=== PATIENT | female | born 1955 | race Caucasian/White ===

== ENCOUNTER 2017-11-26 22:04 | Emergency (ER) | payer MEDICAID ==
[~2017-11-26] VITALS: Ht 162.6 cm; Wt 72.6 kg
[~2017-11-26 22:04] MED LIST: GLYB5TAB14 PO; LEVO0.0211 PO; LISI-424 PO; METF850T4 PO
[2017-11-26 22:10] VITALS: BP 162/90
--- NOTE | 2017-11-26 22:13 | NUR ---
TO BED # 1 AMB, REPORT GIVEN TO JAGJIT ROGERS.
--- NOTE | 2017-11-26 22:20 | NUR ---
Note undone in EDM - 11/26/17 at 2227 by ALEJANDRINA ASSUMED CARE OF PT AT THIS TIME. C/O RIGHT LOWER LEG PAIN S/P MECHANICAL FALL X 3 HOURS AGO. AAOX4 WITH EVEN AND STEADY GAIT; PATIENT STATES PAIN OF 7/10 AT THIS TIME; VSS; PATIENT POSITIONED FOR COMFORT; HOB ELEVATED; BEDRAILS UP X2; BED DOWN. ER MADE AWARE OF PT STATUS. WILL CONTINUE TO MONITOR.
--- NOTE | 2017-11-26 22:20 | NUR ---
ASSUMED CARE OF PT AT THIS TIME. C/O LEFT LOWER LEG PAIN S/P MECHANICAL FALL X 3 HOURS AGO. AAOX4 WITH EVEN AND STEADY GAIT; PATIENT STATES PAIN OF 7/10 AT THIS TIME; VSS; PATIENT POSITIONED FOR COMFORT; HOB ELEVATED; BEDRAILS UP X2; BED DOWN. ER MD MADE AWARE OF PT STATUS. WILL CONTINUE TO MONITOR.
--- NOTE | 2017-11-26 23:24 | NUR ---
Dr. Astudillo evaluating patient at bedside.
--- NOTE | 2017-11-26 23:24 | NUR ---
REPORT RECEIVED FROM SUE DANIELSON
[2017-11-26] MEDS ORDERED: IBUPROFEN 600 MG TAB PO ONE (23:35)
[2017-11-26] MEDS ORDERED: BACITRACIN OINT 500 UNITS/GM PKT TP ONE (23:35)
--- NOTE | 2017-11-26 23:50 | NUR ---
Patient discharged with v/s stable. Written and verbal after care instructions given and explained. Patient alert, oriented and verbalized understanding of instructions. Ambulatory with steady gait. All questions addressed prior to discharge. ID band removed. Patient advised to follow up with PMD. Rx of IBUPROFEN/BACITRACIN given. Patient educated on indication of medication including possible reaction and side effects. Opportunity to ask questions provided and answered.
[2017-11-27 00:02] VITALS: BP 119/86
== END 2017-11-26 23:50 | disposition home or self-care (01) ==
LOC: MED 22:04
DX: S83.92XA Sprain of unspecified site of left knee, initial encounter (principal); S93.402A Sprain of unspecified ligament of left ankle, initial encounter; S09.8XXA Other specified injuries of head, initial encounter; I10 Essential (primary) hypertension; E11.9 Type 2 diabetes mellitus without complications; E07.9 Disorder of thyroid, unspecified; W18.39XA Other fall on same level, initial encounter; Y93.89 Activity, other specified; Y99.8 Other external cause status; Y92.89 Other specified places as the place of occurrence of the external cause
CPT/HCPCS: 73562; 73610; 82948; 99284

== ENCOUNTER 2019-02-12 10:39 | Day surgery (SDC) | payer OTHER ==
[~2019-02-12] VITALS: Ht 160 cm; Wt 68.0 kg
[~2019-02-12 10:39] MED LIST changes: +METF-350 PO; -METF850T4 PO
[2019-02-12] MEDS ORDERED: LIDOCAINE 2% 100 MG/5 ML UJET TP ONE (13:08)
[2019-02-12] MEDS ORDERED: fentaNYL 0.05 MG/ML VIAL ONE (13:08)
[2019-02-12] MEDS ORDERED: fentaNYL 0.05 MG/ML VIAL IVP ONE (16:25)
== END 2019-02-12 14:20 | disposition home or self-care (01) ==
LOC: MDS 10:39 → MMU 10:39 → MDS 14:20
PROVIDERS: ATTEND Internal Medicine Gastroenterology
DX: Z12.11 Encounter for screening for malignant neoplasm of colon (principal); K57.30 Diverticulosis of large intestine without perforation or abscess without bleeding; K51.40 Inflammatory polyps of colon without complications; I10 Essential (primary) hypertension; E78.00 Pure hypercholesterolemia, unspecified; E11.9 Type 2 diabetes mellitus without complications; E66.3 Overweight; Z79.84 Long term (current) use of oral hypoglycemic drugs; Z79.899 Other long term (current) drug therapy
CPT/HCPCS: 45385; 88305; J3010

== ENCOUNTER 2019-08-07 13:42 | Emergency (ER) | payer OTHER ==
[~2019-08-07] VITALS: Ht 153.7 cm; Wt 70.3 kg
[2019-08-07 13:51] VITALS: BP 122/66
--- NOTE | 2019-08-07 14:00 | NUR ---
PT PRESENTS TO THE ER W/ ACUTE FEVER AND BURNING EPIGASTRIC PAIN 5/10 FOR 2 DAYS. DENIES UPPER RESPIRATORY SYMPTOMS. DENIES N/V. TRAVEL TO [place] 07/31/19-08/01/19, DENIES SICK CONTACTS THERE. SKIN IS PINK/WARM/DRY; AAOX4 WITH EVEN AND STEADY GAIT; LUNGS CLEAR BL; HR EVEN AND REGULAR; PT DENIES ANY CP, SOB, OR COUGH AT THIS TIME; PATIENT STATES PAIN OF 5/10 AT THIS TIME; VSS; PATIENT POSITIONED FOR COMFORT; HOB ELEVATED; BEDRAILS UP X5; BED DOWN. ER MD MADE AWARE OF PT STATUS.
[2019-08-07] MEDS ORDERED: ACETAMINOPHEN EXTRA STRENGTH 500 MG TAB PO ONE (14:05)
--- NOTE | 2019-08-07 14:05 | NUR ---
PT AMB TO BED 06
--- NOTE | 2019-08-07 14:07 | NUR ---
NOTIFIED DR BOBO OF PT'S C/O FEVER AND RECENT TRAVEL HX.
[2019-08-07] MEDS ORDERED: ALUMINUM HYD/MAG/SIMETHICONE 30 ML UDC PO ONE (14:15)
[2019-08-07] MEDS ORDERED: LIDOCAINE VISCOUS 2% 20 ML UDC PO ONE (14:15)
--- NOTE | 2019-08-07 14:22 | NUR ---
FLU SWAB COLLECTED AT BEDSIDE
--- NOTE | 2019-08-07 14:34 | NUR ---
XRAY AT BEDSIDE
[2019-08-07 14:40] LABS: BASOPHILS # (AUTO) 0.1 K/uL (0.00-0.22); BASOPHILS % (AUTO) 0.6 % (0.0-2.0); HEMATOCRIT 36.4 % (36-48); HEMOGLOBIN 12.1 g/dL (12.0-16.0); LYMPHOCYTES # (AUTO) 1.3 K/uL (2.5-16.5); LYMPHOCYTES % (AUTO) 9.4 % (20.5-51.1); MEAN CORPUSCULAR HEMOGLOBIN 30 pg (27-31); MEAN CORPUSCULAR HGB CONC 33 g/dL (33-37); MEAN CORPUSCULAR VOLUME 90.2 fL (80-94); MONOCYTES # (AUTO) 0.9 K/uL (0.8-1.0); MONOCYTES % (AUTO) 6.6 % (1.7-9.3); NEUTROPHILS # (AUTO) 11.6 K/uL (1.8-7.7); NEUTROPHILS % (AUTO) 83.4 % (42.2-75.2); PLATELET COUNT (AUTO) 150 K/uL (140-450); RED BLOOD CELL COUNT(AUTO) 4.04 MIL/uL (4.20-5.40); RED CELL DISTRIBUTION WIDTH 15.1 % (11.6-13.7); WHITE BLOOD COUNT (AUTO) 13.9 K/uL (4.8-10.8)
--- NOTE | 2019-08-07 14:50 | NUR ---
URINE SAMPLE COLLECTED
[2019-08-07 14:55] LABS: ALBUMIN 3.1 g/dL (3.4-5.0); CARBON DIOXIDE 23.6 mmol/L (21-32); POTASSIUM 3.6 mmol/L (3.5-5.1); TOTAL BILIRUBIN 3.2 mg/dL (0.0-1.0)
--- NOTE | 2019-08-07 15:47 | NUR ---
FLU A POSITIVE AND B NEGATIVE, REPORTED TO DR BOBO
[2019-08-07 16:54] LABS: APPEARANCE,URINE CLEAR (CLEAR); BILIRUBIN,URINE 1+ (NEGATIVE); BLOOD, URINE NEGATIVE (NEGATIVE); COLOR,URINE YELLOW (YELLOW); LEUKOCYTE ESTERASE ,URINE TRACE (NEGATIVE); NITRITE, URINE POSITIVE (NEGATIVE); UGLUCOSE NEGATIVE (NEGATIVE)
[2019-08-07 17:06] LABS: RBC,URINE 0-5 /HPF (0-5)
[2019-08-07 17:29] VITALS: BP 112/59
--- NOTE | 2019-08-07 17:29 | NUR ---
Patient discharged with v/s stable. Written and verbal after care instructions given and explained. Patient alert, oriented and verbalized understanding of instructions. Ambulatory with steady gait. All questions addressed prior to discharge. ID band removed. Patient advised to follow up with PMD. Rx of Macrobid and Tamiflu given. Patient educated on indication of medication including possible reaction and side effects. Opportunity to ask questions provided and answered.
== END 2019-08-07 17:29 | disposition home or self-care (01) ==
LOC: MED 13:42
DX: J10.1 Influenza due to other identified influenza virus with other respiratory manifestations (principal); N39.0 Urinary tract infection, site not specified; E11.9 Type 2 diabetes mellitus without complications; I10 Essential (primary) hypertension; E07.9 Disorder of thyroid, unspecified; Z79.84 Long term (current) use of oral hypoglycemic drugs; Z79.899 Other long term (current) drug therapy
CPT/HCPCS: 36415; 71045; 76705; 80053; 81001; 83690; 85025; 87086; 87804; 99285; Q0092

== ENCOUNTER 2021-04-14 10:38 | Emergency (ER) | payer OTHER ==
[~2021-04-14] VITALS: Ht 160 cm; Wt 65.8 kg
[~2021-04-14 10:38] MED LIST changes: -LISI-424 PO; +LISI5TAB PO
[2021-04-14 10:42] VITALS: BP 134/91
[2021-04-14] MEDS ORDERED: ACETAMINOPHEN 325 MG TAB PO ONE ×2 (11:00→11:15)
--- NOTE | 2021-04-14 11:34 | NUR ---
65 Y/O F, PATIENT PRESENTS TO ED WITH CHEST PAIN AND L ARM PAIN AFTER FALLING ON CHEST AND ARM 6 DAYS AGO. PT DENIES SYNCOPE, LOC OR HEAD/NECM INJURY. DENIES N/V/D; SKIN IS PINK/WARM/DRY; AAOX4 WITH EVEN AND STEADY GAIT; LUNGS CLEAR BL; HR EVEN AND REGULAR; PT DENIES ANY FEVER, CP, SOB, OR COUGH AT THIS TIME; PATIENT STATES PAIN OF 7/10 AT THIS TIME; VSS; PATIENT POSITIONED FOR COMFORT; HOB ELEVATED; BEDRAILS UP X2; BED DOWN. ER MD MADE AWARE OF PT STATUS. PT DENIES BLURRY VISION, DOUBLE VISION OR LIGHT HEADED. MECHANICAL FALL, BROKE FALL WITH CHEST AND ARM. PMH: HTN, DM2 NKA MED: DENIES
--- NOTE | 2021-04-14 13:26 | NUR ---
PT RESTING IN BED, VSS, WILL CONTINUE TO MONITOR.
[2021-04-14] MEDS ORDERED: NAPR-54 PO (13:47)
[2021-04-14] MEDS ORDERED: LID5T TP (13:47)
[2021-04-14 13:57] VITALS: BP 124/83
--- NOTE | 2021-04-14 13:58 | NUR ---
Patient discharged with v/s stable. Written and verbal after care instructions given RIB FRACTURE and explained. Patient alert, oriented and verbalized understanding of instructions. Ambulatory with steady gait. All questions addressed prior to discharge. ID band removed. Patient advised to follow up with PMD. Rx of LIDOCAINE, AND NAPROXEN given. Patient educated on indication of medication including possible reaction and side effects. Opportunity to ask questions provided and answered.
== END 2021-04-14 13:57 | disposition home or self-care (01) ==
LOC: MED 10:38
DX: S22.32XA Fracture of one rib, left side, initial encounter for closed fracture (principal); E11.9 Type 2 diabetes mellitus without complications; I10 Essential (primary) hypertension; E07.9 Disorder of thyroid, unspecified; Z79.84 Long term (current) use of oral hypoglycemic drugs; Z79.899 Other long term (current) drug therapy; W01.0XXA Fall on same level from slipping, tripping and stumbling without subsequent striking against object, initial encounter; Y93.89 Activity, other specified; Y92.89 Other specified places as the place of occurrence of the external cause; Y99.8 Other external cause status
CPT/HCPCS: 71101; 73030; 99284

== ENCOUNTER 2022-06-06 20:47 | Emergency (ER) | payer OTHER ==
[~2022-06-06] VITALS: Ht 154.9 cm; Wt 65.3 kg
[~2022-06-06 20:47] MED LIST changes: +LID5T TP; +NAPR-54 PO
[2022-06-06 21:04] VITALS: BP 126/66
--- NOTE | 2022-06-06 21:07 | NUR ---
TO LOBBY A/W BED AMBULATORY
[2022-06-07] MEDS ORDERED: OFLO5SOL27 OT (00:08)
[2022-06-07] MEDS ORDERED: IBUP-2213 PO (00:08)
[2022-06-07 00:22] VITALS: BP 138/74
--- NOTE | 2022-06-07 00:22 | NUR ---
Patient discharged with v/s stable. Written and verbal after care instructions given and explained. Patient verbalized understanding. Ambulatory with steady gait. All questions addressed prior to discharge. Advised to follow up with PMD.
[2022-06-08] MEDS ORDERED: CYCL-711 PO (22:57)
== END 2022-06-07 00:22 | disposition home or self-care (01) ==
LOC: MED 20:47
DX: H60.502 Unspecified acute noninfective otitis externa, left ear (principal); E11.9 Type 2 diabetes mellitus without complications; I10 Essential (primary) hypertension; E07.9 Disorder of thyroid, unspecified; Z79.84 Long term (current) use of oral hypoglycemic drugs; Z79.899 Other long term (current) drug therapy
CPT/HCPCS: 99281

== ENCOUNTER 2022-06-08 20:12 | Emergency (ER) | payer OTHER ==
[~2022-06-08] VITALS: Ht 157.5 cm; Wt 63.5 kg
[~2022-06-08 20:12] MED LIST changes: +IBUP-2213 PO; +OFLO5SOL27 OT
[2022-06-08 20:20] VITALS: BP 105/55
--- NOTE | 2022-06-08 20:23 | NUR ---
TO LOBBY A/W BED AMBULATORY
--- NOTE | 2022-06-08 20:48 | NUR ---
PT RETURN FROM RADIOLOGY TO ER LOBBY
[2022-06-08] MEDS ORDERED: CYCL-711 PO (22:57)
== END 2022-06-08 23:11 | disposition home or self-care (01) ==
LOC: MED 20:12
DX: M79.671 Pain in right foot (principal); M79.672 Pain in left foot; G89.29 Other chronic pain; E11.9 Type 2 diabetes mellitus without complications; I10 Essential (primary) hypertension; E07.9 Disorder of thyroid, unspecified; Z79.84 Long term (current) use of oral hypoglycemic drugs; Z79.899 Other long term (current) drug therapy
CPT/HCPCS: 73630; 99283

== ENCOUNTER 2022-06-16 12:20 | Inpatient (IN) | payer OTHER ==
[~2022-06-16] VITALS: Ht 162.6 cm; Wt 82.1 kg
[~2022-06-16 12:20] MED LIST changes: +CYCL-711 PO
--- NOTE | 2022-06-16 12:23 | NUR ---
PT W/C ASSISTED TO BED 9
[2022-06-16 12:27] VITALS: BP 130/76
--- NOTE | 2022-06-16 12:52 | NUR ---
pt taken to ct via [facility] with [facility] and sarah mcneal
--- NOTE | 2022-06-16 12:58 | NUR ---
pt returned from ct, pt oriented to name, place, event, denies any pain, nsr on cm, o2 sat 98% ra, sr up times 2 already examined by
[2022-06-16 13:13] LABS: BASOPHILS # (AUTO) 0.1 K/uL (0.00-0.22); BASOPHILS % (AUTO) 1.1 % (0.0-2.0); EOSINOPHILS # (AUTO) 0.1 K/uL (0-0.4); EOSINOPHILS % (AUTO) 1.8 % (0.0-4.0); HEMOGLOBIN 11.4 g/dL (12.0-16.0); LYMPHOCYTES # (AUTO) 1.2 K/uL (2.5-16.5); LYMPHOCYTES % (AUTO) 24.4 % (20.5-51.1); MEAN CORPUSCULAR HEMOGLOBIN 28 pg (27-31); MEAN CORPUSCULAR HGB CONC 33 g/dL (33-37); MEAN CORPUSCULAR VOLUME 83.9 fL (80-94); MONOCYTES # (AUTO) 0.5 K/uL (0.8-1.0); MONOCYTES % (AUTO) 9.9 % (1.7-9.3); NEUTROPHILS # (AUTO) 3.2 K/uL (1.8-7.7); NEUTROPHILS % (AUTO) 62.8 % (42.2-75.2); PLATELET COUNT (AUTO) 127 K/uL (140-450); RED BLOOD CELL COUNT(AUTO) 4.05 MIL/uL (4.20-5.40); WHITE BLOOD COUNT (AUTO) 5.1 K/uL (4.8-10.8)
[2022-06-16 13:28] LABS: PROTHROMBIN TIME 11.5 secs (10.8-13.4)
[2022-06-16 13:34] LABS: ALBUMIN 2.8 g/dL (3.4-5.0); ANION GAP 10.6 (8-16); ASPARTATE AMINOTRANSFERASE 61 U/L (15-37); CARBON DIOXIDE 26.4 mmol/L (21-32); CHLORIDE 107 mmol/L (98-107); CREATININE 0.8 mg/dL (0.6-1.3); GFR ARICAN-AMERICAN 93 mL/min (>90); GLUCOSE 151 mg/dL (74-106); SODIUM SERUM 140 mmol/L (136-145); TOTAL BILIRUBIN 1.4 mg/dL (0.0-1.0); UREA NITROGEN, BLOOD 17 mg/dL (7-18)
[2022-06-16] MEDS ORDERED: ACT30 PO (13:39)
[2022-06-16] MEDS ORDERED: ROSU10TA1 PO (13:39)
[2022-06-16] MEDS ORDERED: PROP20TA29 PO (13:39)
[2022-06-16] MEDS ORDERED: FAMO-92 PO (13:39)
[2022-06-16] MEDS ORDERED: LISI2.5T12 PO (13:41)
[2022-06-16 14:58] LABS: APPEARANCE,URINE CLEAR (CLEAR); BILIRUBIN,URINE NEGATIVE (NEGATIVE); BLOOD, URINE NEGATIVE (NEGATIVE); COLOR,URINE YELLOW (YELLOW); LEUKOCYTE ESTERASE ,URINE 1+ (NEGATIVE); NITRITE, URINE NEGATIVE (NEGATIVE); UGLUCOSE NEGATIVE (NEGATIVE)
[2022-06-16 15:26] LABS: RBC,URINE 0-5 /HPF (0-5)
[2022-06-16 15:27] LABS: TRICHOMONAS,URINE None Seen /HPF (None Seen); YEAST,URINE None Seen /HPF (None Seen)
--- NOTE | 2022-06-16 16:16 | NUR ---
PT ON TELE NEURO CONSULT
--- NOTE | 2022-06-16 17:49 | NUR ---
ok to eat per Dr Bell. pt requesting food
--- NOTE | 2022-06-16 19:07 | NUR ---
pt eating dinner at this time, no ac distress, nsr on cm, o2 sat 98% ra, sr up times 2
[2022-06-16] MEDS ORDERED: ONDANSETRON 4 MG/2 ML VIAL IVP PRN (19:10)
[2022-06-16] MEDS ORDERED: ACETAMINOPHEN 325 MG TAB PO PRN (19:10)
[2022-06-16] MEDS ORDERED: DEXTROSE 50% 50 ML SYR IVP PRN (19:15)
--- NOTE | 2022-06-16 19:21 | NUR ---
pt report to mold shifter nurse, Mia. no distress noted in pt
[2022-06-16] MEDS ORDERED: cefTRIAXone 1,000 MG VIAL ONE (19:49)
[2022-06-16] MEDS: NACL 0.9% 1,000 ML IV SCH ×2 (19:58→22:17)
--- NOTE | 2022-06-16 20:00 | NUR ---
RESTING COMFORTABLY IN NAD. WARM BLANKET GIVEN
[2022-06-16] MEDS: BLOOD GLUCOSE MONITORING 1 DEV DEV FS SCH (21:00)
[2022-06-16] MEDS: LACTULOSE 20 GM/30 ML UDC PO SCH (21:00)
--- NOTE | 2022-06-16 21:30 | NUR ---
TO ICU 6. BEDSIDE REPORT GIVEN TO SUE PETERSEN
[2022-06-16 22:36] VITALS: BP 128/62
[2022-06-16 23:02] VITALS: BP 128/62
[2022-06-16] MEDS: INSULIN LISPRO SLIDING SCALE 100 UNITS/ML VIAL SUBQ PRN (23:13)
[2022-06-17 04:00] VITALS: BP 129/72
[2022-06-17] MEDS: BLOOD GLUCOSE MONITORING 1 DEV DEV FS SCH ×4 (05:24→20:34)
[2022-06-17] MEDS: INSULIN LISPRO SLIDING SCALE 100 UNITS/ML VIAL SUBQ PRN ×4 (05:25→20:40)
[2022-06-17] MEDS ORDERED: metroNIDAZOLE 500 MG/NS PREMIX 0 ML IV ONE (05:25)
[2022-06-17] MEDS ORDERED: LEVOTHYROXINE 0.025 MG TAB ONE (05:26)
[2022-06-17] MEDS: LEVOTHYROXINE 0.025 MG TAB PO SCH (05:27)
[2022-06-17 05:50] LABS: BASOPHILS % (AUTO) 0.7 % (0.0-2.0); EOSINOPHILS # (AUTO) 0.1 K/uL (0-0.4); EOSINOPHILS % (AUTO) 0.7 % (0.0-4.0); HEMATOCRIT 31.6 % (36-48); HEMOGLOBIN 10.6 g/dL (12.0-16.0); LYMPHOCYTES # (AUTO) 1.6 K/uL (2.5-16.5); MEAN CORPUSCULAR HEMOGLOBIN 28 pg (27-31); MEAN CORPUSCULAR HGB CONC 34 g/dL (33-37); MEAN CORPUSCULAR VOLUME 83.9 fL (80-94); MONOCYTES # (AUTO) 0.9 K/uL (0.8-1.0); MONOCYTES % (AUTO) 12.6 % (1.7-9.3); NEUTROPHILS # (AUTO) 4.3 K/uL (1.8-7.7); PLATELET COUNT (AUTO) 116 K/uL (140-450); RED BLOOD CELL COUNT(AUTO) 3.77 MIL/uL (4.20-5.40); RED CELL DISTRIBUTION WIDTH 17.4 % (11.6-13.7); WHITE BLOOD COUNT (AUTO) 6.9 K/uL (4.8-10.8)
[2022-06-17 06:17] LABS: ALBUMIN 2.5 g/dL (3.4-5.0); ANION GAP 12.4 (8-16); CARBON DIOXIDE 24.2 mmol/L (21-32); CREATININE 0.8 mg/dL (0.6-1.3); MAGNESIUM 1.1 mg/dL (1.8-2.4); POTASSIUM 3.6 mmol/L (3.5-5.1); TOTAL BILIRUBIN 1.2 mg/dL (0.0-1.0)
[2022-06-17 06:21] VITALS: BP 129/71
--- NOTE | 2022-06-17 06:25 | NUR ---
PATIENT STABLE VITALS SIGNS IN NORMAL LIMITS ADMITED TO THE FLOOR ROOM 120 A TELEMETRY WE INFORMED HER JODIE HERNANDEZ TELE [phone] REPORT AND ENDORSED CARE TO ÁNGEL ROGERS
--- NOTE | 2022-06-17 08:00 | NUR ---
PATIENT ALERT AND VERBALLY RESPONSIVE. A&OX 2 ABLE TO MAKE NEEDS KNOWN. FORGETFUL. ADMITTED WITH DX:AMS. BREATHING EVEN AND NON LABORED. NO SOB/DYSPENA. NO S/S RESPIRATORY DISTRESS NOTED. CONTINUED ON SINUS RHYTHM. IVF NS @75ML/HR ORDERED. LAC IV SITE DRSG CLEAN DRY AND INTACT. RAC IV SITE DRSG CLEAN DRY AND INTACT. DENIES PAIN. CONTINUED ON IV ATB ORDERED. NO ADVERSE REACTIONS NOTED. F/C IN PLACE. F/C CARE PROVIDED. ASSISTED WITH ADL'S. PATIENT REQUIRES MODERATE ASSIST FOR TOILETING R/T LOWER EXT. GENERALIZED WEAKNESS. TURNED AND REPOSITIONED Q2H. SAFETY MEASURES OBSERVED. CALL LIGHT IN REACH. BED LOCKED IN LOWEST POSITION. CONTINUE PLAN OF CARE.
[2022-06-17] MEDS ORDERED: lisinopriL 20 MG TAB PO SCH (09:00)
[2022-06-17] MEDS ORDERED: lisinopriL 5 MG TAB PO SCH (09:00)
--- NOTE | 2022-06-17 09:56 | NUR ---
PATIENT HAS BEEN SCREENED AND CATEGORIZED MODERATE NUTRITION RISK. PATIENT WILL BE SEEN WITHIN 3-5 DAYS OF ADMISSION. REVIEWED BY PRISCILLA BERNABE RD
[2022-06-17] MEDS: ASPIRIN 81 MG TAB.CHEW PO SCH (10:28)
[2022-06-17] MEDS: LACTULOSE 20 GM/30 ML UDC PO SCH ×2 (10:28→20:33)
[2022-06-17 12:00] VITALS: BP 120/78
--- NOTE | 2022-06-17 12:11 | NUR ---
DR. ALEKSANDAR GAINES NOTIFIED REGARDING PATIENT'S LAB RESULTS. MADE AWARE MAG 1.1. MD NEW ORDER MAGNESIUM 4MG IVPB X1. ORDER NOTED AND CARRIED OUT PATIENT/ RESPONSIBLE CONSTITUTION PARTY MADE AWARE.
--- NOTE | 2022-06-17 12:13 | NUR ---
NO CHANGES IN PATIENT HR/ RHYTHM DUE TO MG 1.1. PATIENT CURRENTLY HAS NORMAL SINUS RHYTHM. PATIENT DENIES CP/PALPITATIONS. PULSES STRONG AND PALPABLE BILAT/PEDAL/RADIAL PULSES EQUAL STRONG.
[2022-06-17] MEDS ORDERED: MAG SULF 2000 MG/WATER PREMIX 100 ML IV SCH (13:00)
--- NOTE | 2022-06-17 14:47 | NUR ---
DC PLANNING SW ATTEMPTED TO MEET WITH PT AT BEDSIDE TO COMPLETE ASSESSMENT, HOWEVER, PT RECEIVED PHONE CALL AND REQUESTED SW TO RETURN AT A LATER TIME.
[2022-06-17 16:00] VITALS: BP 97/61
[2022-06-17 20:00] VITALS: BP 102/54
--- NOTE | 2022-06-17 20:33 | NUR ---
ADMINISTERED SCHEDULED DUE MEDICATIONS TOLERATED WELL. PATIENT AWAKE ALERT ORIENTED ON ROOM AIR WELL RESTED. NO SOB NOTED. DENIES PAIN. IVF NS AT 75 ML/HR INFUSING ON THE RAC. CALL LIGHT WITHIN REACH. SAFETY MEASURES IN PLACE. FAMILY MEMBER AT BEDSIDE.
[2022-06-17] MEDS: NACL 0.9% 1,000 ML IV SCH (21:50)
[2022-06-18] VITALS: BP 121/64
[2022-06-18 04:00] VITALS: BP 121/64
[2022-06-18] MEDS: LEVOTHYROXINE 0.025 MG TAB PO SCH (06:52)
[2022-06-18] MEDS: BLOOD GLUCOSE MONITORING 1 DEV DEV FS SCH ×4 (06:54→20:24)
[2022-06-18] MEDS: INSULIN LISPRO SLIDING SCALE 100 UNITS/ML VIAL SUBQ PRN ×3 (06:54→20:28)
--- NOTE | 2022-06-18 07:16 | NUR ---
ENDORSED PATIENT TO MORNING SHIFT NURSE HOPE FOR CONTINUITY OF CARE. PATIENT IN STABLE CONDITION.
--- NOTE | 2022-06-18 07:30 | NUR ---
RECEIVED REPORT FROM SUPERVISOR ENGRAVING NURSE FOR CONTINUITY OF CARE, POC DISCUSSED. PT IS ASLEEP IN BED ON RA WITH CHEST RISING AND FALLING EVEN AND UNLABORED. PT ON TELE MONITOR SHOWING SR. ALL SAFETY MEASURES IN PLACE, CALL LIGHT WITHIN REACH. WILL CONTINUE TO MONITOR.
[2022-06-18 08:00] VITALS: BP 99/58
[2022-06-18] MEDS: ASPIRIN 81 MG TAB.CHEW PO SCH (09:01)
[2022-06-18] MEDS: LACTULOSE 20 GM/30 ML UDC PO SCH ×2 (09:02→20:29)
--- NOTE | 2022-06-18 09:30 | NUR ---
ALEXANDRU MEDICATION ADMINISTERED PER MD ORDER, PT TOLERATED ADMINISTRATION. SWENSON NOTED JACE COLOR, 350 ML OUTPUT. PT DENIES PAIN. ALERT AND ORIENTED X4, REPORTS ALL NEEDS ARE BEING MET. NEW IV FLUIDS STARTED. ALL SAFETY MEASURES IN PLACE, CALL LIGHT WITHIN REACH. WILL CONTINUE TO MONITOR.
[2022-06-18] MEDS: NACL 0.9% 1,000 ML IV SCH (11:47)
--- NOTE | 2022-06-18 11:47 | NUR ---
MRI PAPERWORK COMPLETED.
[2022-06-18 12:00] VITALS: BP 110/69
--- NOTE | 2022-06-18 13:00 | NUR ---
DISCHARGE PLANNING PATIENT IS A 66-YEAR-OLD FEMALE ADMITTED TO [facility]/ED ON 06/16/2022. DUE TO ALTERED MENTAL STATUS. SW MET WITH PATIENT AT BEDSIDE TO DISCUSS AND GATHER PATIENT'S COLLATERAL INFORMATION. PATIENT REPORTED LIVING AT HOME WITH HER DAUGHTER DAVID BLANCAS IN [facility]. PATIENT STATED HAVING A GOOD FAMILY SUPPORT FROM HER FAMILY, HER ADULT SON DARLIN VAZQUEZ AND DAUGTHER DAVID BLANCAS WHO ARE HER EMERGENCY CONTACTS AND MEDICAL DESICION MAKERS. PATIENT DO NOT HAVE ADVANCE DIRECTIVES AND DECLINED ALL INF. FORMS PROVIDED BY SW AT THE TIME OF VISIT. PATIENT REPORTED THAT SHE HAS A GOOD RAPPORT WITH HER PCP DR. THOMAS ARREDONDO WHO SHE SAW LAST TIME ABOUT 3 WEEKS AGO. SW DISCUSS WITH PATIENT THE IMPORTANCE OF MAKING A FOLLOW UP APPOINTMENT WITH IN 5-7 DAYS AFTER DISCHARGE. PATIENT AGREED AND REPORTED THAT SHE WILL MAKE HER OWN APPOINTMENT WHEN SHE IS READY FOR DISCHARGED PATIENT DECLINED FOR SW TO MAKE HER FOLLOW UP APPOITNMENT. PATIENT STATED THAT SHE DO NOT HAVE ANY ISSUES WITH MEDICATIONS AND PICKS THEM UP IN THE [facility] IN [facility] IN [facility] IN [facility]. PATIENT REPORTED NOT HAVING ANY DME AT HOME. PATIENT REPORTED WANTING TO GO BACK HOME WHEN HE IS READY AND STABLE TO DISCHARGE WITH HER DAUGHTER'S ASSISTANCE WITH TRANSPORTATION BACK HOME. SW THANKED HER FOR THE INFORMATION AND ENDED THE VISIT. SW/CM WILL FOLLOW UP NEEDED.
--- NOTE | 2022-06-18 14:45 | NUR ---
[facility] AT BEDSIDE REPORTING THAT THEY ARE TAKING PATIENT TO [facility] TUNNEL WORKER CALLED, LISY STATED PT IS BEING PICKED UP AND HER APPOINTMENT IS AT 1600.
--- NOTE | 2022-06-18 14:57 | NUR ---
PT HAS BEEN PICKED UP BY THE [facility] IN STABLE CONDITION, IV AND SWENSON CATH IN PLACE. TELE MONITOR ON THE SIDE TABLE. PT WILL BE COMING BACK TO SAME ROOM 120A
--- NOTE | 2022-06-18 16:40 | NUR ---
SPEECH THERAPY NOTE: ATTEMPTED TO SEE PT. FOR SWALLOW EVALUATION, HOWEVER PT. IS AT [facility] FOR MRI. WILL FOLLOW UP. RN AWARE.
--- NOTE | 2022-06-18 17:01 | NUR ---
PTS SON, DARLIN UPDATED ON PTS STATUS AND GETTING MRI AT [facility] ON [address]. ALL QUESTIONS AND CONCERNS ADDRESSED.
--- NOTE | 2022-06-18 17:15 | NUR ---
PT HAS BEEN BROUGHT BACK BY [facility] IN STABLE CONDITION. VSS, 126/76, 86 HR, 98.5 TEMP, 19 RR. CONNECTED TO THE TELE MONITOR SHOWING SINUS RHYTHM. RECONNECTED TO THE IV FLUIDS. SWENSON IN PLACE AND DRAINING YELLOW URINE. ALL NEEDS CURRENTLY BEING MET. ALL SAFETY MEASURES IN PLACE, CALL LIGHT WITHIN REACH. WILL CONTINUE TO MONITOR.
--- NOTE | 2022-06-18 18:51 | NUR ---
ALL NEEDS HAVE BEEN MET, PT IS STABLE. POC WILL BE DISCUSSED AND ENDORSED TO MONEY MARKET DEALER NURSE.
--- NOTE | 2022-06-18 19:15 | NUR ---
RECEIVED PATIENT IN BED AWAKE ALERT ORIENTED ON ROOM AIR WELL RESTED. NO SOB. IVF NS INFUSING AT 75 ML/HR ON THE RAC. DENIES PAIN. SWENSON CATHETER DRAINING WELL. CALL LIGHT WITHIN REACH. SAFETY MEASURES IN PLACE.
[2022-06-18 20:00] VITALS: BP 119/69
--- NOTE | 2022-06-18 20:24 | NUR ---
CHECKED BLOOD SUGAR WAS 337, ADMINISTERED HUMALOG INSULIN ORDERED PER SLIDING SCALE.
--- NOTE | 2022-06-18 20:30 | NUR ---
SCHEDULED DUE MEDICATION GIVEN
[2022-06-19] VITALS: BP 132/89
[2022-06-19] MEDS: NACL 0.9% 1,000 ML IV SCH ×2 (00:30→13:50)
[2022-06-19 04:00] VITALS: BP 130/73
[2022-06-19] MEDS: LEVOTHYROXINE 0.025 MG TAB PO SCH (05:39)
[2022-06-19] MEDS: BLOOD GLUCOSE MONITORING 1 DEV DEV FS SCH ×2 (06:41→11:50)
[2022-06-19] MEDS: INSULIN LISPRO SLIDING SCALE 100 UNITS/ML VIAL SUBQ PRN ×2 (06:41→11:59)
--- NOTE | 2022-06-19 07:13 | NUR ---
BEDSIDE ENDORSEMENT GIVEN TO AM SHIFT NURSE NORM FOR CONTINUITY OF CARE. PATIENT STABLE.
[2022-06-19 08:00] VITALS: BP 132/89
[2022-06-19] MEDS: LACTULOSE 20 GM/30 ML UDC PO SCH (09:25)
[2022-06-19] MEDS: ASPIRIN 81 MG TAB.CHEW PO SCH (09:25)
[2022-06-19] MEDS ORDERED: LACT10SO11 PO (09:50)
[2022-06-19] MEDS ORDERED: CIPR500T4 PO (09:50)
[2022-06-19] MEDS ORDERED: ASPI81CT95 PO (09:50)
[2022-06-19 12:00] VITALS: BP 130/73
--- NOTE | 2022-06-19 12:00 | NUR ---
SCHEDULED MEDICATIONS DUE GIVEN. WILL CONTINUE TO MONITOR.
--- NOTE | 2022-06-19 15:00 | NUR ---
DISCHARGE INSTRUCTIONS PROVIDED TO PATIENT, ANSWERED ALL OF HER QUESTIONS. HAS FAMILY TO [employer] SUPERVISOR PATIENT AROUND 1600. SWENSON CATH REMOVED. WILL CONTINUE TO MONITOR.
--- NOTE | 2022-06-19 16:15 | NUR ---
IV SITES REMOVED WITH MINIMAL BLOOD AND LUMEN COMPLETELY INTACT. ESCORTED PATIENT DOWN TO LOBBY VIA WHEELCHAIR. PATIENT DISCHARGED TO HOME AT THIS TIME WITH FAMILY MEMBER.
--- NOTE | 2022-06-19 16:25 | NUR ---
PHYSICAL THERAPY CO-SIGN The Physical Therapy Progress Notes documented by Service Representative have been reviewed. Reviewed/Co-Signed by: Radha Painting PT Documentation Done by:RADHA PADILLA ACADEMIC AFFAIRS COORDINATOR Addendum: 06/19/22 at 1625 by Radha Painting PT Amended: Links added.
== END 2022-06-19 16:15 | disposition home or self-care (01) | DRG 463 ==
LOC: MED 12:20 → MTU 19:10 → MIC 20:42 → MTU 06-17 06:05
PROVIDERS: ADMIT Internal Medicine; ATTEND Internal Medicine
DX: N39.0 Urinary tract infection, site not specified (principal); G93.40 Encephalopathy, unspecified; E43 Unspecified severe protein-calorie malnutrition; D69.6 Thrombocytopenia, unspecified; E72.20 Disorder of urea cycle metabolism, unspecified; K74.60 Unspecified cirrhosis of liver; E11.9 Type 2 diabetes mellitus without complications; B96.20 Unspecified Escherichia coli [E. coli] as the cause of diseases classified elsewhere; Z68.31 Body mass index [BMI] 31.0-31.9, adult; D64.9 Anemia, unspecified; E80.6 Other disorders of bilirubin metabolism; E03.9 Hypothyroidism, unspecified; Z20.822 Contact with and (suspected) exposure to COVID-19; I10 Essential (primary) hypertension
CPT/HCPCS: 36415; 70450; 71045; 80053; 81001; 82140; 82948; 83036; 83605; 83735; 84484; 85025; 85610; 85730; 86886; 86900; 86901; 87040; 87081; 87086; 92526; 96365; 97116; 97530; 99291; J0696; J3475; J3490; J7060; Q0092; Q9967

== ENCOUNTER 2022-06-24 00:03 | Inpatient (IN) | payer OTHER ==
[~2022-06-24] VITALS: Ht 160 cm; Wt 78.5 kg
[~2022-06-24 00:03] MED LIST changes: +ACT30 PO; +ASPI81CT95 PO; +CIPR500T4 PO; +FAMO-92 PO; +LACT10SO11 PO; +LISI2.5T12 PO; +PROP20TA29 PO; +ROSU10TA1 PO
[2022-06-24 00:10] VITALS: BP 95/68
--- NOTE | 2022-06-24 00:12 | NUR ---
PT TAKEN TO BED 2
--- NOTE | 2022-06-24 00:16 | NUR ---
Patient being evaluated by physician at bedside.
[2022-06-24] MEDS ORDERED: PANTOPRAZOLE 40 MG INJ VIAL IVP ONE (00:20)
[2022-06-24 00:43] LABS: BASOPHILS # (AUTO) 0.1 K/uL (0.00-0.22); BASOPHILS % (AUTO) 1.2 % (0.0-2.0); EOSINOPHILS # (AUTO) 0.3 K/uL (0-0.4); EOSINOPHILS % (AUTO) 4.4 % (0.0-4.0); HEMATOCRIT 27.7 % (36-48); HEMOGLOBIN 9.3 g/dL (12.0-16.0); LYMPHOCYTES # (AUTO) 2.5 K/uL (2.5-16.5); LYMPHOCYTES % (AUTO) 37.7 % (20.5-51.1); MEAN CORPUSCULAR HEMOGLOBIN 28 pg (27-31); MEAN CORPUSCULAR HGB CONC 34 g/dL (33-37); MEAN CORPUSCULAR VOLUME 84.2 fL (80-94); MONOCYTES # (AUTO) 0.9 K/uL (0.8-1.0); MONOCYTES % (AUTO) 13.1 % (1.7-9.3); NEUTROPHILS # (AUTO) 2.9 K/uL (1.8-7.7); NEUTROPHILS % (AUTO) 43.6 % (42.2-75.2); PLATELET COUNT (AUTO) 132 K/uL (140-450); RED BLOOD CELL COUNT(AUTO) 3.28 MIL/uL (4.20-5.40); WHITE BLOOD COUNT (AUTO) 6.6 K/uL (4.8-10.8)
--- NOTE | 2022-06-24 01:05 | NUR ---
PATIENT ALERT ORIENTED NOT COMPLAINING OF PAIN CAME TO ED TODAY FOR VOMITING BLOOD PATIENT HAVE HX OF CIRROSIS AND GERD ALSO DIABETES AND HTN PATIENT IS NOW STABLE SR 68 ON MONITOR
[2022-06-24 01:48] LABS: POTASSIUM 3.4 mmol/L (3.5-5.1)
[2022-06-24 01:49] LABS: ANION GAP 12.5 (8-16); CARBON DIOXIDE 23.9 mmol/L (21-32); CREATININE 0.9 mg/dL (0.6-1.3)
--- NOTE | 2022-06-24 02:48 | NUR ---
PT AMBULATED TO WITH SON FOR URINE COLLECTION.
--- NOTE | 2022-06-24 05:00 | NUR ---
PATIENT STABLE ALERT ORIENTED TIMES 4 VITALS SIGNS IN NORMAL LIMITS NOT COMPLAINING OF PAIN AT THIS TIME NOT NAUSEAS NOT VOMITING
--- NOTE | 2022-06-24 05:06 | NUR ---
LATIC ACID 3.8 DOCTOR WAS INFORMED
[2022-06-24] MEDS ORDERED: cefTRIAXone 1,000 MG VIAL ONE (06:23)
[2022-06-24] MEDS ORDERED: KCL 20 MEQ/WATER INJ PREMIX 200 ML IV PRN (06:25)
[2022-06-24] MEDS ORDERED: HYDROcodone/APAP 5/325 MG 1 TAB TAB PO PRN (06:25)
[2022-06-24] MEDS ORDERED: ONDANSETRON 4 MG/2 ML VIAL IVP PRN (06:25)
[2022-06-24] MEDS ORDERED: ACETAMINOPHEN 325 MG TAB PO PRN (06:25)
[2022-06-24] MEDS ORDERED: MORPHINE SULFATE 4 MG/ML SYR IVP PRN (06:25)
[2022-06-24] MEDS ORDERED: POTASSIUM CHLORIDE 10 MEQ TABER PO PRN (06:25)
[2022-06-24] MEDS ORDERED: NACL 0.9% 1,000 ML IV ONE (06:25)
[2022-06-24] MEDS ORDERED: LORazepam 1 MG TAB PO PRN (06:25)
[2022-06-24] MEDS ORDERED: ALBUMIN HUMAN 25% 100 ML IV ONE (06:35)
--- NOTE | 2022-06-24 06:53 | NUR ---
PATIENT BLOOD PRESUEE START COMING DOWN SO I CALL THE DOCTOR AND HE GAVE ME A BOLUS 1000 ML
[2022-06-24] MEDS: NACL 0.9% 1,000 ML IV SCH ×2 (06:56→18:55)
--- NOTE | 2022-06-24 07:20 | NUR ---
REPORT RECEIVED FROM GONZALEZ RN, RECEIVED PT WITH R WRIST IV OUT, 4X4 PLACED, TRANSFERRED IV FLUIDS AND ALBUMIN TO [address]
--- NOTE | 2022-06-24 07:30 | NUR ---
Patient will be admitted to care of LIANA GUZMAN. Admitted to TELEMETRY. Will go to room. Belongings list completed.
--- NOTE | 2022-06-24 07:34 | NUR ---
REPORT GIVEN TO LAVERN ROGERS, TRANSFER OF CARE AT THIS TIME
--- NOTE | 2022-06-24 07:50 | NUR ---
RECEIVED REPORT FROM ER NURSE LAVERN FOR CONTINUITY OF CARE. PT STABLE IN TRANSPORT AND COMPLAINS OF NO PAIN AT THIS TIME. PT IS ADMITTED FOR GI BLEED THAT IS ACTIVE WITH BRIGHT RED BLOOD. A&OX4, SKIN INTACT, ON 2L NC, SKIN INTACT EXCEPT SOME DRYNESS, AND PT AMBULATES WITH ASSIST. PT HAS A 20G IN L HAND THAT IS INFUSING NS @80ML/HR. ALL SAFETY MEASURE ARE IN PLACE INCLUDING LOW BED POSITION AND CALL LIGHT WITHIN REACH. WILL CONTINUE TO MONITOR PT.
[2022-06-24 08:00] VITALS: BP 117/59
[2022-06-24] MEDS: DOCUSATE SODIUM 100 MG GELCAP PO SCH (09:00)
[2022-06-24] MEDS: PANTOPRAZOLE 40 MG INJ VIAL IVP SCH ×2 (09:33→21:11)
--- NOTE | 2022-06-24 10:47 | NUR ---
PATIENT HAS BEEN SCREENED AND CATEGORIZED MODERATE NUTRITION RISK. PATIENT WILL BE SEEN WITHIN 3-5 DAYS OF ADMISSION. REVIEWED BY PRISCILLA BERNABE RD
--- NOTE | 2022-06-24 11:13 | NUR ---
INFORMED DR THAT PT HAS HAD THREE BM SINCE 0750 THIS MORNING WITH RED BLOOD AND CLOTS IN IT.
[2022-06-24] MEDS ORDERED: DEXTROSE 50% 50 ML SYR IVP PRN (11:25)
[2022-06-24 11:48] LABS: BASOPHILS % (AUTO) 0.7 % (0.0-2.0); EOSINOPHILS # (AUTO) 0.1 K/uL (0-0.4); EOSINOPHILS % (AUTO) 1.5 % (0.0-4.0); HEMATOCRIT 22.6 % (36-48); HEMOGLOBIN 7.5 g/dL (12.0-16.0); LYMPHOCYTES # (AUTO) 1.3 K/uL (2.5-16.5); LYMPHOCYTES % (AUTO) 27.7 % (20.5-51.1); MEAN CORPUSCULAR HEMOGLOBIN 28 pg (27-31); MEAN CORPUSCULAR HGB CONC 33 g/dL (33-37); MEAN CORPUSCULAR VOLUME 85.1 fL (80-94); MONOCYTES # (AUTO) 0.7 K/uL (0.8-1.0); MONOCYTES % (AUTO) 13.9 % (1.7-9.3); NEUTROPHILS # (AUTO) 2.7 K/uL (1.8-7.7); NEUTROPHILS % (AUTO) 56.2 % (42.2-75.2); PLATELET COUNT (AUTO) 118 K/uL (140-450); RED BLOOD CELL COUNT(AUTO) 2.66 MIL/uL (4.20-5.40); RED CELL DISTRIBUTION WIDTH 16.6 % (11.6-13.7); WHITE BLOOD COUNT (AUTO) 4.8 K/uL (4.8-10.8)
[2022-06-24 12:00] VITALS: BP 123/60
[2022-06-24] MEDS: BLOOD GLUCOSE MONITORING 1 DEV DEV FS SCH ×3 (12:29→21:24)
[2022-06-24] MEDS: INSULIN LISPRO SLIDING SCALE 100 UNITS/ML VIAL SUBQ PRN (12:29)
[2022-06-24] MEDS: OCTREOTIDE ACETATE 1.25 MG in NACL 0.9% 250 ML IV SCH (14:30)
[2022-06-24 16:00] VITALS: BP 92/48
--- NOTE | 2022-06-24 19:10 | NUR ---
RECEIVED PT ON BED AWAKE, ALERT AND VERBALLY RESPONSIVE IN BULGARIAN. PT IS WITH CHIEF COMPLAINTS OF ABDOMINAL PAIN. PT DENIES OF PAIN AT THIS TIME. PT IS NPO AT THIS TIME FOR EGD PLANNING TOMORROW. EXPLAIN AND EDUCATE PT. PT UNDERSTOOD.
--- NOTE | 2022-06-24 19:10 | NUR ---
ENDORSED P TO WAFFLE MACHINE OPERATOR NURSE COSMO FOR CONTINUITY OF CARE. PT STABLE AT THIS TIME.
[2022-06-24 20:00] VITALS: BP 92/48
--- NOTE | 2022-06-24 21:24 | NUR ---
BLOOD SUGAR CHECKED = 91, NO SLIDING SCALE COVERAGE, NO INSULIN NEEDED.
--- NOTE | 2022-06-24 22:30 | NUR ---
PT WENT TO USE RESTROOM, PER NURSING HOME AIDE, NOTED OLD BLOOD PRESENT ON THE TOILET BOWL ON SMALL TO MODERATE AMOUNT.
[2022-06-25] VITALS: BP 94/44
[2022-06-25 04:00] VITALS: BP 96/50
[2022-06-25] MEDS: LEVOTHYROXINE 0.025 MG TAB PO SCH (06:41)
--- NOTE | 2022-06-25 06:41 | NUR ---
PT TOOK HER MORNING PILL SYNTHROID FOR THYROID WITH LITTLE WATER.
[2022-06-25] MEDS: BLOOD GLUCOSE MONITORING 1 DEV DEV FS SCH ×4 (07:00→20:48)
--- NOTE | 2022-06-25 07:00 | NUR ---
BLOOD SUGAR CHECK = 80, NO SLIDING SCALE COVERAGE, NO INSULIN NEEDED.
--- NOTE | 2022-06-25 07:15 | NUR ---
RECEIVED REPORT FROM NIGHT NURSE COSMO ROGERS FOR CONTINUITY OF CARE. INITIAL ASSESSMENT DONE. IVF INFUSING WELL. CALL LIGHT KEPT WITHIN REACH. WILL CONTINUE TO MONITOR.
[2022-06-25] MEDS: NACL 0.9% 1,000 ML IV SCH ×2 (07:25→19:55)
--- NOTE | 2022-06-25 07:30 | NUR ---
PT IS ON STABLE CONDITION, ALL SAFETY MEASURES ARE IN PLACE. ENDORSED TO DAY SHIFT NURSE JAISON FOR CONTINUITY OF CARE.
[2022-06-25 07:34] LABS: BASOPHILS % (AUTO) 0.9 % (0.0-2.0); EOSINOPHILS # (AUTO) 0.2 K/uL (0-0.4); EOSINOPHILS % (AUTO) 5.4 % (0.0-4.0); HEMATOCRIT 21.4 % (36-48); LYMPHOCYTES # (AUTO) 1.5 K/uL (2.5-16.5); LYMPHOCYTES % (AUTO) 35.4 % (20.5-51.1); MEAN CORPUSCULAR HEMOGLOBIN 28 pg (27-31); MEAN CORPUSCULAR HGB CONC 33 g/dL (33-37); MONOCYTES # (AUTO) 0.5 K/uL (0.8-1.0); NEUTROPHILS % (AUTO) 46.3 % (42.2-75.2); PLATELET COUNT (AUTO) 109 K/uL (140-450); RED BLOOD CELL COUNT(AUTO) 2.48 MIL/uL (4.20-5.40); RED CELL DISTRIBUTION WIDTH 17.4 % (11.6-13.7); WHITE BLOOD COUNT (AUTO) 4.3 K/uL (4.8-10.8)
[2022-06-25 07:36] LABS: CREATININE 0.8 mg/dL (0.6-1.3)
[2022-06-25 08:00] VITALS: BP 93/61
--- NOTE | 2022-06-25 08:00 | NUR ---
Patient's Plan of Care was discussed and reviewed with MAYITO: SERJIO
[2022-06-25] MEDS: PANTOPRAZOLE 40 MG INJ VIAL IVP SCH ×2 (09:00→20:32)
[2022-06-25] MEDS ORDERED: PROPRANOLOL 20 MG TAB PO SCH (09:00)
--- NOTE | 2022-06-25 09:05 | NUR ---
RECEIVED CALL FROM LAB SPOKE TO DAMARIS SILVA HGB 7. DR. CUNNINGHAM NOTIFIED WITH NEW ORDER. BLOOD TRANSFUSION 1 UNIT. RESIDENT DAQUAN HURST. ORDER NOTED AND CARRIED OUT.
[2022-06-25] MEDS: DOCUSATE SODIUM 100 MG GELCAP PO SCH (09:19)
--- NOTE | 2022-06-25 09:19 | NUR ---
SCHEDULED MEDICATIONS ADMINISTERED. TOLERATING WELL. INDERAL ON HOLD, BP 93/61.
--- NOTE | 2022-06-25 10:20 | NUR ---
PT SEEN BY DR. UCNNINGHAM.
[2022-06-25 12:00] VITALS: BP 101/58
--- NOTE | 2022-06-25 12:00 | NUR ---
DISCHARGE PLANNING PATIENT IS A 66 YEAR OLD FEMALE ADMITTED TO THE [facility]/ER ON 06/24/2022 DUE TO GI BLEED. ATTEMPTED TO GATHER COLLATERAL INFORMATION FROM PATIENT HOWEVER; SHE WAS NOT ALERT AND ABLE TO PROVIDE IT HOWEVER; HER SON AT BEDSIDE DID PROVIDE MUCH INFORMATION ABOUT PATIENT HE WAS ABLE TO. PER PATIENT'S SON HE FIRST WAS ABLE TO PROCESS HIS ANGER ABOUT PATIENT'S LAST ADMISSION ON 06/20/2022 AND HER DISCHARGE ON 06/23/2022. PER PATIENT'S SON SHE WORSEN AT HOME AND SHE IS BACK TODAY DUE TO VOMITING BLOOD. PER PATIENT'S SON PATIENT LIVES AT HOME WITH HER DAUGTHER DAVID IN THEIR HOME IN [facility] [place] [facility]. PER SON PATIENT HAS NO A.D. AND DECLINED ALL INF. FORMS PROVIDED BY ERNESTINA. PER SON PATIENT HAS HIS EMERGENCY CONTACTS STEVEN VAZQUEZ AND VENTURA BLANCAS . WHO ARE ALSO ARE PATIENT'S MEDICAL DECISION MAKERS. PER PATIENT'S SON PATIENT HAS GOOD FAMILY SUPPORT AND HAS BEEN INDEPENDENT ALL HER LIFE UNTIL RECENTLY WHEN SHE GOT SICK. PER SON PATIENT HAS A PCP DR. CURRAN AND HE IS UNAWARE OF WHEN IS THE LAST TIME PATIENT HAD AN APPOINTMENT WITH HER PCP; ERNESTINA DISCUSSED WITH PATIENT'S SON ABOUT THE IMPORTANCE OF HAVING PATIENT FOLLOW UP WITH HER APPOINTMENT WITHIN 5-7 DAYS AFTER DISCHARGE BUT PATIENT'S SON DECLINED THE APPOINTMENT AND STATED THAT THEY WILL MAKE HER APPOINTMENT AFTER PATIENT DISCHARGES. PATIENT HAS NO DME AT HOME AND SHE HAS NO ISSUES GETTING OR TAKING HER MEDICATIONS THAT SHE IS GETTING FROM [facility] IN [facility]. PER PATIENT'S SON PATIENT WILL BE DISCHARGE BACK HOME AND WILL BE ASSISTED WITH TRANSPORTATION BY HER SON OR DAUGTHER. SW THANKED PATIENT'S FOR THE INFORMATION AND ENDED THE MEETING. ERNESTINA/EMILIA WILL FOLLOW UP NEED IT.
[2022-06-25] MEDS ORDERED: diphenhydrAMINE 50 MG/ML VIAL ONE (13:43)
[2022-06-25] MEDS ORDERED: MIDAZOLAM 2 MG/2 ML VIAL ONE (13:44)
[2022-06-25] MEDS ORDERED: fentaNYL citrate 0.05 MG/ML VIAL ONE (13:44)
--- NOTE | 2022-06-25 14:00 | NUR ---
PT DAMON BY TEQUILA FROM OR FOR EGD.
[2022-06-25] MEDS: OCTREOTIDE ACETATE 1.25 MG in NACL 0.9% 250 ML IV SCH (14:30)
[2022-06-25] MEDS: MIDAZOLAM 2 MG/2 ML VIAL IVP SCH ×2 (14:49→15:15)
[2022-06-25] MEDS: fentaNYL citrate 0.05 MG/ML VIAL IVP SCH ×2 (14:50→15:15)
[2022-06-25] MEDS: PROPRANOLOL 20 MG TAB PO SCH ×2 (15:10→17:15)
--- NOTE | 2022-06-25 15:25 | NUR ---
PT RETURN FROM OR. ASSESSMENT DONE. NO C/O PAIN AT THIS TIME. REMAINS STABLE.
[2022-06-25 16:00] VITALS: BP 130/66
[2022-06-25 16:14] LABS: PROTHROMBIN TIME 11.9 secs (10.8-13.4)
--- NOTE | 2022-06-25 16:22 | NUR ---
BLOOD TRANSFUSION STARTED 1 UNIT.
[2022-06-25] MEDS: LACTULOSE 20 GM/30 ML UDC PO SCH (17:00)
--- NOTE | 2022-06-25 17:08 | NUR ---
BS CHECK 142. NO COVERAGE NEEDED.
[2022-06-25] MEDS: METOCLOPRAMIDE 10 MG/2 ML INJ VIAL IVP SCH (17:19)
--- NOTE | 2022-06-25 18:41 | NUR ---
RECHECKED PT. EATING DINNER. BLOOD TRANSFUSION STILL INFUSING. REMAINS STABLE.
--- NOTE | 2022-06-25 19:15 | NUR ---
BEDSIDE REPORT GIVEN TO NIGHT NURSE ALVIN FOR CONTINUITY OF CARE. BLOOD TRANSFUSION STILL INFUSING. REMAINS STABLE. CALL LIGHT KEPT WITHIN REACH.
--- NOTE | 2022-06-25 19:16 | NUR ---
RECEIVED REPORT FROM MORNING SHIFT NURSE. PT IS AOX4, AMBULATORY, EMIRATI SPEAKING WITH RELATIVE ON BEDSIDE, ABLE TO FOLLOW COMMAND AND ABLE TO VERBALIZE PAIN. PT IS ON 2L NASAL CANNULA WITH CLEAR LIQUID DIET. PT HAS IV ON LEFT HAND GAUGE 20 RUNNING WITH BLOOD AT 120 ML/HR. PT SKIN IS INTACT. PT DENIES PAIN AND NO S/S OF RESPIRATORY DISTRESS NOTED. ALL SAFETY MEASURES IMPLEMENTED. BED IN LOW POSITION, BED WHEELS ON LOCK AND CALL LIGHT WITHIN REACH.
[2022-06-25 20:00] VITALS: BP 129/65
--- NOTE | 2022-06-25 20:30 | NUR ---
BLOOD TRANSFUSION WAS DONE WITH THE VS-BP- 140/72, T-98.2, RR-18 SATING AT 98%.
--- NOTE | 2022-06-25 20:30 | NUR ---
BLOOD TRANSFUSION WAS DONE WITH THE VS-BPP- Addendum: 06/26/22 at 0108 by Lindsey Chris RN INCOMPLETE DATA
--- NOTE | 2022-06-25 20:32 | NUR ---
SCHEDULED AND PRESCRIBED MEDICATION WAS GIVEN TO PT PER MD ORDER. ALL SAFETY MEASURES IMPLEMENTED. BED IN LOW POSITION, BED WHEELS ON LOCK AND CALL LIGHT WITHIN REACH.
[2022-06-25] MEDS: INSULIN LISPRO SLIDING SCALE 100 UNITS/ML VIAL SUBQ PRN (20:50)
--- NOTE | 2022-06-25 20:50 | NUR ---
PT'S BLOOD GLUCOSE IS 284. HUMALOG INSULIN 6 UNITS WAS GIVEN TO PT.
[2022-06-25] MEDS: MAG SULF 2000 MG/WATER PREMIX 50 ML IV PRN (21:40)
--- NOTE | 2022-06-25 21:40 | NUR ---
MAGNESIUM SULFATE 2000MG THRU IVPB AT 25ML/HR DUE TO MAGNESIUM OF 1.4
[2022-06-25 22:20] LABS: HEMATOCRIT 25.1 % (36-48); HEMOGLOBIN 8.3 g/dL (12.0-16.0)
[2022-06-26] VITALS: BP 112/66
--- NOTE | 2022-06-26 | NUR ---
ASSISTED PT TO BATHROOM, PT WAS GIVEN DISPOSABLE UNDERWEAR WITH SANITARY [place]. ALL SAFETY MEASURES IMPLEMENTED. BED IN LOW POSITION, BED WHEELS ON LOCK AND CALL LIGHT WITHIN REACH.
[2022-06-26] MEDS: OCTREOTIDE ACETATE 1.25 MG in NACL 0.9% 250 ML IV SCH ×2 (03:30→17:39)
[2022-06-26 04:00] VITALS: BP 102/61
[2022-06-26] MEDS: LEVOTHYROXINE 0.025 MG TAB PO SCH (05:34)
[2022-06-26] MEDS: BLOOD GLUCOSE MONITORING 1 DEV DEV FS SCH ×4 (06:31→20:20)
--- NOTE | 2022-06-26 06:31 | NUR ---
PT BLOOD GLUCOSE IS 141. NO INSULIN COVERAGE NEEDED.
[2022-06-26 07:23] LABS: CARBON DIOXIDE 25.9 mmol/L (21-32); CREATININE 0.7 mg/dL (0.6-1.3); POTASSIUM 3.9 mmol/L (3.5-5.1)
[2022-06-26 07:31] LABS: BASOPHILS # (AUTO) 0.1 K/uL (0.00-0.22); BASOPHILS % (AUTO) 1.3 % (0.0-2.0); EOSINOPHILS # (AUTO) 0.3 K/uL (0-0.4); EOSINOPHILS % (AUTO) 4.7 % (0.0-4.0); HEMATOCRIT 24.8 % (36-48); HEMOGLOBIN 8.3 g/dL (12.0-16.0); LYMPHOCYTES # (AUTO) 1.7 K/uL (2.5-16.5); LYMPHOCYTES % (AUTO) 27.1 % (20.5-51.1); MEAN CORPUSCULAR HEMOGLOBIN 29 pg (27-31); MEAN CORPUSCULAR HGB CONC 33 g/dL (33-37); MEAN CORPUSCULAR VOLUME 86.5 fL (80-94); MONOCYTES # (AUTO) 0.9 K/uL (0.8-1.0); MONOCYTES % (AUTO) 14.8 % (1.7-9.3); NEUTROPHILS # (AUTO) 3.2 K/uL (1.8-7.7); NEUTROPHILS % (AUTO) 52.1 % (42.2-75.2); PLATELET COUNT (AUTO) 124 K/uL (140-450); RED BLOOD CELL COUNT(AUTO) 2.86 MIL/uL (4.20-5.40); RED CELL DISTRIBUTION WIDTH 16.4 % (11.6-13.7); WHITE BLOOD COUNT (AUTO) 6.2 K/uL (4.8-10.8)
[2022-06-26 08:00] VITALS: BP 128/72
[2022-06-26] MEDS: LACTULOSE 20 GM/30 ML UDC PO SCH ×3 (09:12→17:36)
[2022-06-26] MEDS: PANTOPRAZOLE 40 MG INJ VIAL IVP SCH ×2 (09:18→20:12)
[2022-06-26] MEDS: PROPRANOLOL 20 MG TAB PO SCH ×3 (09:22→17:00)
[2022-06-26] MEDS: METOCLOPRAMIDE 10 MG/2 ML INJ VIAL IVP SCH ×3 (09:23→17:36)
[2022-06-26] MEDS: NACL 0.9% 1,000 ML IV SCH (09:24)
[2022-06-26 12:00] VITALS: BP 116/62
[2022-06-26] MEDS: INSULIN LISPRO SLIDING SCALE 100 UNITS/ML VIAL SUBQ PRN ×3 (12:12→20:21)
[2022-06-26 16:00] VITALS: BP 94/44
--- NOTE | 2022-06-26 19:26 | NUR ---
ENDORSE PATIENT IN STABLE CONDITION TO PM SHIFT NURSE. PIV L. HAND 20G INFUSING SANDOSTATIN @15ML/HR AND NS @80ML/HR
--- NOTE | 2022-06-26 19:27 | NUR ---
RECEIVED REPORT FROM MORNING SHIFT NURSE. PT IS AOX4, AMBULATORY, KENYAN SPEAKING WITH RELATIVE ON BEDSIDE, ABLE TO FOLLOW COMMAND AND ABLE TO VERBALIZE PAIN. PT IS ON ROOM AIR AND ON CLEAR LIQUID DIET. PT HAS IV ON LEFT HAND GAUGE 20 RUNNING WITH NS AT 40ML/HR AND SANDOSTATIN AT 50ML/HR. PT SKIN IS INTACT. PT DENIES PAIN AND NO S/S OF RESPIRATORY DISTRESS NOTED. ALL SAFETY MEASURES IMPLEMENTED. BED IN LOW POSITION, BED WHEELS ON LOCK AND CALL LIGHT WITHIN REACH.
[2022-06-26 20:00] VITALS: BP 110/58
--- NOTE | 2022-06-26 20:21 | NUR ---
SCHEDULED AND PRESCRIBED MEDICATION WAS GIVEN TO PT PER MD ORDER. PT BLOOD GLUCOSE IS 280. HUMALOG INSULIN 6 UNITS WAS GIVEN TO PT. ALL SAFETY MEASURES IMPLEMENTED. BED IN LOW POSITION, BED WHEELS ON LOCK AND CALL LIGHT WITHIN REACH.
--- NOTE | 2022-06-26 22:00 | NUR ---
PT WAS ASSISTED TO HAVE HER BOWEL MOVEMENT, CHANGED LINENS, GOWNS AND CHUCKS. PT DENIES PAIN AT THIS TIME. NO S/S OF RESPIRATORY DISTRESS NOTED. ALL SAFETY MEASURES IMPLEMENTED. BED IN LOW POSITION, BED WHEELS ON LOCK AND CALL LIGHT WITHIN REACH.
[2022-06-27] VITALS: BP 106/58
--- NOTE | 2022-06-27 | NUR ---
PT IS SLEEPING. CHEST RISE AND FALL SYMMETRICALLY NOTED. RESPIRATION IS EVEN AND UNLABORED. ALL SAFETY MEASURES IMPLEMENTED. BED IN LOW POSITION, BED WHEELS ON LOCK AND CALL LIGHT WITHIN REACH.
--- NOTE | 2022-06-27 02:00 | NUR ---
CHECKED PT STILL SLEEPING. CHEST RISE AND FALL SYMMETRICALLY NOTED. RESPIRATION IS EVEN AND UNLABORED. ALL SAFETY MEASURES IMPLEMENTED. BED IN LOW POSITION, BED WHEELS ON LOCK AND CALL LIGHT WITHIN REACH.
[2022-06-27 04:00] VITALS: BP 105/55
--- NOTE | 2022-06-27 04:00 | NUR ---
MORNING CARE WAS DONE TO PT. CHANGED GOWN, LINENS AND CHUCKS. NO COMPLAIN OF PAIN. NO S/S OF RESPIRATORY DISTRESS NOTED. ALL SAFETY MEASURES IMPLEMENTED. BED IN LOW POSITION, BED WHEELS ON LOCK AND CALL LIGHT WITHIN REACH.
[2022-06-27] MEDS: NACL 0.9% 1,000 ML IV SCH (05:53)
[2022-06-27] MEDS: LEVOTHYROXINE 0.025 MG TAB PO SCH (05:54)
[2022-06-27] MEDS: BLOOD GLUCOSE MONITORING 1 DEV DEV FS SCH ×4 (06:30→20:53)
--- NOTE | 2022-06-27 06:30 | NUR ---
PT BLOOD GLUCOSE IS 149. NO INSULIN COVERAGE NEEDED.
[2022-06-27 06:49] LABS: CARBON DIOXIDE 27.9 mmol/L (21-32); CREATININE 0.8 mg/dL (0.6-1.3); POTASSIUM 3.9 mmol/L (3.5-5.1)
--- NOTE | 2022-06-27 07:14 | NUR ---
PT IS STABLE. ENDORSED PT TO MORNING SHIFT NURSE FOR CONTINUITY OF CARE.
[2022-06-27 07:19] LABS: BASOPHILS % (AUTO) 0.5 % (0.0-2.0); EOSINOPHILS # (AUTO) 0.4 K/uL (0-0.4); EOSINOPHILS % (AUTO) 6.6 % (0.0-4.0); HEMATOCRIT 25.2 % (36-48); HEMOGLOBIN 8.2 g/dL (12.0-16.0); LYMPHOCYTES # (AUTO) 1.8 K/uL (2.5-16.5); LYMPHOCYTES % (AUTO) 30.5 % (20.5-51.1); MEAN CORPUSCULAR HEMOGLOBIN 29 pg (27-31); MEAN CORPUSCULAR HGB CONC 33 g/dL (33-37); MONOCYTES % (AUTO) 16.6 % (1.7-9.3); NEUTROPHILS # (AUTO) 2.7 K/uL (1.8-7.7); NEUTROPHILS % (AUTO) 45.8 % (42.2-75.2); PLATELET COUNT (AUTO) 115 K/uL (140-450); RED BLOOD CELL COUNT(AUTO) 2.87 MIL/uL (4.20-5.40); RED CELL DISTRIBUTION WIDTH 16.6 % (11.6-13.7); WHITE BLOOD COUNT (AUTO) 5.8 K/uL (4.8-10.8)
--- NOTE | 2022-06-27 07:30 | NUR ---
ENDORSED PT FROM SHAKE MAKER NURSE.PATIENT IS STABLE.SLEEPING IN BED.ALL SAFETY MEASURES INITIATED.POC DISCUSSED,WILL CONTINUE TO MONITOR.
[2022-06-27 08:00] VITALS: BP 92/49
[2022-06-27] MEDS: LACTULOSE 20 GM/30 ML UDC PO SCH ×3 (09:19→17:15)
[2022-06-27] MEDS: METOCLOPRAMIDE 10 MG/2 ML INJ VIAL IVP SCH ×3 (09:20→17:15)
[2022-06-27] MEDS: PANTOPRAZOLE 40 MG INJ VIAL IVP SCH ×2 (09:21→20:53)
[2022-06-27] MEDS: MAG SULF 2000 MG/WATER PREMIX 50 ML IV PRN (09:35)
[2022-06-27] MEDS: OCTREOTIDE ACETATE 1.25 MG in NACL 0.9% 250 ML IV SCH (11:04)
--- NOTE | 2022-06-27 11:23 | NUR ---
RECEIVE CALL FROM PHARMACY REGARDING TO TITRATE SANDOSTATIN INFUSING RATE FROM 15 TO 10ML/HR
[2022-06-27] MEDS: PROPRANOLOL 20 MG TAB PO SCH ×3 (11:28→17:15)
[2022-06-27] MEDS: INSULIN LISPRO SLIDING SCALE 100 UNITS/ML VIAL SUBQ PRN ×3 (11:44→20:54)
[2022-06-27 12:00] VITALS: BP 108/49
[2022-06-27] MEDS ORDERED: OCTREOTIDE ACETATE 1.25 MG in NACL 0.9% 250 ML IV SCH (14:30)
[2022-06-27 15:06] LABS: HEPATITIS A ANTIBODY IGM Negative (Negative); HEPATITIS B CORE AB TOTAL Negative (Negative); HEPATITIS B SURFACE ANTIBODY Non Reactive (.); HEPATITIS B SURFACE ANTIGEN Negative (Negative)
[2022-06-27 16:00] VITALS: BP 105/55
[2022-06-27] MEDS: FERROUS GLUCONATE 324 MG TAB PO SCH (17:17)
--- NOTE | 2022-06-27 17:20 | NUR ---
DR. MUNROE VISITED PATIENT AND ORDER TO REDUCE SANDOSTATIN FLOW RATE FROM 15ML/HR TO 10ML/HR. GIVING INDERAL 20MG EVEN WHEN PATIENT'S BP BELOW 100 WHICH IS PRESCRIBED FOR THERAPEUTICALLY INDUCE HYPOTENSION, & HAVING CT ABDOMEN/PELVIS W/ CONTRACT WHICH INDICT THAT: 1. Nonocclusive thrombus of the main portal vein and occlusive thrombus in portal vein branches. 2. Cirrhosis with findings of portal hypertension including prominent portosystemic collaterals including gastroesophageal varices, moderate volume ascites, and anasarca. 3. Generalized wall thickening and edema of the stomach, small bowel, and large bowel likely related to portal congestion. 4. Probable gastric gallstone within a contracted gallbladder. 5. 7 mm anterolisthesis of L4 on L5. 6. 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
--- NOTE | 2022-06-27 19:17 | NUR ---
ENDORSE PATIENT IN STABLE CONDITION TO PM SHIFT NURSE THAT PIV AT R. FOREARM 22G INFUSING SANDOSTATIN @10ML/HR. R.AC 20G SALINE LOCK
--- NOTE | 2022-06-27 19:30 | NUR ---
RECEIVED BEDSIDE REPORT FROM DAY SHIFT RN FOR CONTINUITY OF CARE. PT IS AAOX4 BHUTANESE SPEAKER. SON BY BEDSIDE. PT IS ON 2L NC. PT IS HAS BEDSIDE COMMODE. POC DISCUSSED. CALL LIGHT WITHIN REACH. WILL CONTINUE TO MONITOR THE PT.
[2022-06-27 20:00] VITALS: BP 101/40
--- NOTE | 2022-06-27 21:00 | NUR ---
SCHEDULE MEDICATIONS GIVEN. NO ADVERSE REACTION NOTED. PT DOESNT COMPLAIN OF ANY PAIN AND HAS NO COMPLAINS. WILL CONTINUE TO MONITOR THE PT.
--- NOTE | 2022-06-27 23:50 | NUR ---
PT COMPLAINED OF LEFT AC 20 GAUGE HURTING THE ARM. IV WAS REMOVED. CATHETER INTACT. IV STILL INTACT ON RIGHT FOREARM 22 GAUGE. NO OTHER COMPLAINS. WILL CONTINUE TO MONITOR THE PT.
[2022-06-28] VITALS (12 sets, daily range): BP systolic 92–139; BP diastolic 47–86
--- NOTE | 2022-06-28 02:45 | NUR ---
OBSERVED PT. PT IS SLEEPING COMFORTABLY IN BED. PT NOT IN ANY ACUTE DISTRESS. CALL LIGHT WITHIN REACH. WILL CONTINUE TO MONITOR THE PT.
[2022-06-28] MEDS: LEVOTHYROXINE 0.025 MG TAB PO SCH (06:04)
--- NOTE | 2022-06-28 06:04 | NUR ---
SCHEDULE MEDICATION GIVEN. PT NOT IN ANY DISTRESS AT THIS TIME. PT HAS NO COMPLAINS. WILL CONTINUE TO MONITOR THE PT.
[2022-06-28] MEDS: BLOOD GLUCOSE MONITORING 1 DEV DEV FS SCH ×4 (06:35→21:41)
[2022-06-28 06:40] LABS: BASOPHILS # (AUTO) 0.1 K/uL (0.00-0.22); BASOPHILS % (AUTO) 0.9 % (0.0-2.0); EOSINOPHILS # (AUTO) 0.4 K/uL (0-0.4); EOSINOPHILS % (AUTO) 6.7 % (0.0-4.0); HEMATOCRIT 25.6 % (36-48); HEMOGLOBIN 8.4 g/dL (12.0-16.0); LYMPHOCYTES # (AUTO) 1.8 K/uL (2.5-16.5); LYMPHOCYTES % (AUTO) 28.9 % (20.5-51.1); MEAN CORPUSCULAR HEMOGLOBIN 29 pg (27-31); MEAN CORPUSCULAR HGB CONC 33 g/dL (33-37); MEAN CORPUSCULAR VOLUME 87.5 fL (80-94); MONOCYTES # (AUTO) 0.9 K/uL (0.8-1.0); MONOCYTES % (AUTO) 14.2 % (1.7-9.3); NEUTROPHILS # (AUTO) 3.1 K/uL (1.8-7.7); NEUTROPHILS % (AUTO) 49.3 % (42.2-75.2); PLATELET COUNT (AUTO) 134 K/uL (140-450); RED BLOOD CELL COUNT(AUTO) 2.92 MIL/uL (4.20-5.40); RED CELL DISTRIBUTION WIDTH 16.4 % (11.6-13.7); WHITE BLOOD COUNT (AUTO) 6.2 K/uL (4.8-10.8)
[2022-06-28 06:50] LABS: CARBON DIOXIDE 25.9 mmol/L (21-32); CREATININE 0.7 mg/dL (0.6-1.3); POTASSIUM 3.9 mmol/L (3.5-5.1)
--- NOTE | 2022-06-28 07:12 | NUR ---
ENDORSED PT TO DAY SHIFT RN FOR CONTINUITY OF CARE. PT IS STABLE.
--- NOTE | 2022-06-28 07:22 | NUR ---
PT RESTING IN BED. NO C/O PAIN, NO SOB. NO ACUTE DISTRESS NOTED AT THIS TIME. [id number].
[2022-06-28] MEDS: FERROUS GLUCONATE 324 MG TAB PO SCH ×2 (08:00→17:54)
[2022-06-28] MEDS: LACTULOSE 20 GM/30 ML UDC PO SCH ×3 (09:00→17:54)
[2022-06-28] MEDS: INSULIN LISPRO SLIDING SCALE 100 UNITS/ML VIAL SUBQ PRN ×3 (12:06→21:39)
[2022-06-28] MEDS ORDERED: hePARIN / DEXT 5% PREMIX 250 ML IV SCH ×2 (15:00→15:30)
[2022-06-28] MEDS ORDERED: HEPARIN PER PHARMACY MC PRN ×2 (15:00)
--- NOTE | 2022-06-28 15:32 | NUR ---
06/28/22 RD INITIAL ASSESSMENT COMPLETED PLEASE REFER TO NUTRITION ASSESSMENT UNDER CARE ACTIVITY FOR ESTIMATED NUTRITIONAL NEEDS. 1. CONTINUE CCHO 60 GM DIET TOLERATED 2. RD PROVIDED NUTRITION EDUCATION WITH HANDOUTS ON CARB COUNTING FOR DM 3. RD TO FOLLOW-UP 7 DAYS, LOW RISK REVIEWED BY PRISCILLA BERNABE RD Addendum: 06/28/22 at [address] DOUBLE ENTRY
--- NOTE | 2022-06-28 15:39 | NUR ---
INDERAL NOT GIVEN PER ORDER FROM TO DC FOR NOW. [id number].
--- NOTE | 2022-06-28 16:30 | NUR ---
RECEIVED REPORT FROM RYLEE, REGIONAL GUIDE, FOR CONTINUITY OF CARE. PT A/OX4, MONGOLIAN SPEAKING. 2L NC, RESPIRATIONS EVEN AND UNLABORED. 22G IV TO R WRIST SALINE LOCK. SR ON MONITOR. MILD WEAKNESS THROUGHOUT. STANDARD PRECAUTION. CALL LIGHT WITHIN REACH, BED LOCKED AND IN LOWEST POSITION.
[2022-06-28 18:06] LABS: BASOPHILS % (AUTO) 0.7 % (0.0-2.0); EOSINOPHILS # (AUTO) 0.3 K/uL (0-0.4); EOSINOPHILS % (AUTO) 4.4 % (0.0-4.0); HEMATOCRIT 26.6 % (36-48); HEMOGLOBIN 8.8 g/dL (12.0-16.0); LYMPHOCYTES # (AUTO) 1.4 K/uL (2.5-16.5); LYMPHOCYTES % (AUTO) 22.5 % (20.5-51.1); MEAN CORPUSCULAR HEMOGLOBIN 29 pg (27-31); MEAN CORPUSCULAR HGB CONC 33 g/dL (33-37); MEAN CORPUSCULAR VOLUME 87.8 fL (80-94); MONOCYTES # (AUTO) 0.8 K/uL (0.8-1.0); MONOCYTES % (AUTO) 13.7 % (1.7-9.3); NEUTROPHILS # (AUTO) 3.6 K/uL (1.8-7.7); NEUTROPHILS % (AUTO) 58.7 % (42.2-75.2); PLATELET COUNT (AUTO) 153 K/uL (140-450); RED BLOOD CELL COUNT(AUTO) 3.03 MIL/uL (4.20-5.40); RED CELL DISTRIBUTION WIDTH 16.5 % (11.6-13.7); WHITE BLOOD COUNT (AUTO) 6.1 K/uL (4.8-10.8)
--- NOTE | 2022-06-28 18:34 | NUR ---
SON AT BEDSIDE, UPDATED ON POC. NO FURTHER QUESTIONS AT THIS TIME.
--- NOTE | 2022-06-28 19:29 | NUR ---
ENDORSED BEDSIDE REPORT TO [facility], REGISTRY COOK JELLY RN, FOR CONTINUITY OF CARE.
--- NOTE | 2022-06-28 20:00 | NUR ---
RECEIVED ON BED AAOX4, DENIES PAIN/DISCOMFORT AT THIS TIME; NOT IN ANY FORM OF DISTRESS. OH HEPARIN DRIP AT 11 UNITS/HR. ASSESSMENT DONE. OFFERED BEDPAN PER REQUEST. MOD WATERY STOOL, TARRY IN COLOR. GOOD PERICARE DONE. KEPT CLEAN AND DRY. SR. CONT TO MONITOR.
--- NOTE | 2022-06-28 21:00 | NUR ---
WATERY BM NOTED AGAIN, THIS TIME BROWNISH IN COLOR. CONT TO MONITOR.
[2022-06-28] MEDS: ZOLPIDEM 5 MG TAB PO PRN (21:29)
[2022-06-28] MEDS: PROPRANOLOL 20 MG TAB PO SCH (21:39)
[2022-06-29] VITALS (21 sets, daily range): BP systolic 89–126; BP diastolic 37–71
[2022-06-29 00:26] LABS: BASOPHILS # (AUTO) 0.1 K/uL (0.00-0.22); BASOPHILS % (AUTO) 1.1 % (0.0-2.0); EOSINOPHILS # (AUTO) 0.4 K/uL (0-0.4); EOSINOPHILS % (AUTO) 5.8 % (0.0-4.0); HEMATOCRIT 24.4 % (36-48); LYMPHOCYTES # (AUTO) 2.1 K/uL (2.5-16.5); LYMPHOCYTES % (AUTO) 30.6 % (20.5-51.1); MEAN CORPUSCULAR HEMOGLOBIN 29 pg (27-31); MEAN CORPUSCULAR HGB CONC 33 g/dL (33-37); MEAN CORPUSCULAR VOLUME 87.7 fL (80-94); MONOCYTES % (AUTO) 14.8 % (1.7-9.3); NEUTROPHILS # (AUTO) 3.2 K/uL (1.8-7.7); NEUTROPHILS % (AUTO) 47.7 % (42.2-75.2); PLATELET COUNT (AUTO) 138 K/uL (140-450); RED BLOOD CELL COUNT(AUTO) 2.78 MIL/uL (4.20-5.40); RED CELL DISTRIBUTION WIDTH 16.6 % (11.6-13.7); WHITE BLOOD COUNT (AUTO) 6.8 K/uL (4.8-10.8)
--- NOTE | 2022-06-29 00:30 | NUR ---
SMALL WATERY BM NOTED, GREENISH IN COLOR. GOOD PERICARE RENDERED. CONT TO MONITOR.
--- NOTE | 2022-06-29 01:30 | NUR ---
RECEIVED A CALL FROM LAB SAYING RESULT FOR PTT WILL BE DELAYED IT IS SENT OUTSIDE FACILITY.
--- NOTE | 2022-06-29 02:15 | NUR ---
RECEIVED A CALL FROM JOSE MARCOS FOR PTT RESULT >150. HEPARIN DRIP STOPPED PER PROTOCOL, WILL RESTART AFTER ONE HR. NO S/S ACTIVE BLEEDING NOTED AT THIS TIME. CONT TO MONITOR.
--- NOTE | 2022-06-29 03:15 | NUR ---
RETARTED HEPARIN DRIP AT 5 UNITS/HR PER PROTOCOL. REQUESTED NEXT PTT FOR 0900. CONT TO MONITOR.
[2022-06-29 05:12] LABS: BASOPHILS # (AUTO) 0.1 K/uL (0.00-0.22); BASOPHILS % (AUTO) 1.1 % (0.0-2.0); EOSINOPHILS # (AUTO) 0.4 K/uL (0-0.4); EOSINOPHILS % (AUTO) 5.3 % (0.0-4.0); HEMATOCRIT 24.6 % (36-48); HEMOGLOBIN 8.2 g/dL (12.0-16.0); LYMPHOCYTES # (AUTO) 2.2 K/uL (2.5-16.5); LYMPHOCYTES % (AUTO) 32.7 % (20.5-51.1); MEAN CORPUSCULAR HEMOGLOBIN 29 pg (27-31); MEAN CORPUSCULAR HGB CONC 33 g/dL (33-37); MEAN CORPUSCULAR VOLUME 87.1 fL (80-94); MONOCYTES # (AUTO) 0.9 K/uL (0.8-1.0); MONOCYTES % (AUTO) 12.8 % (1.7-9.3); NEUTROPHILS # (AUTO) 3.3 K/uL (1.8-7.7); NEUTROPHILS % (AUTO) 48.1 % (42.2-75.2); PLATELET COUNT (AUTO) 135 K/uL (140-450); RED BLOOD CELL COUNT(AUTO) 2.83 MIL/uL (4.20-5.40); RED CELL DISTRIBUTION WIDTH 16.5 % (11.6-13.7); WHITE BLOOD COUNT (AUTO) 6.8 K/uL (4.8-10.8)
[2022-06-29 05:39] LABS: PROTHROMBIN TIME 13.1 secs (10.8-13.4)
[2022-06-29] MEDS: PANTOPRAZOLE 40 MG TABEC PO SCH (06:01)
[2022-06-29] MEDS: LEVOTHYROXINE 0.025 MG TAB PO SCH (06:02)
--- NOTE | 2022-06-29 06:15 | NUR ---
RECEIVED A CALL FROM LAB FOR PTT RESULT >150. hEPARIN DRIP STOPPED PER PROTOCOL. WILL RESTART AFTER 1 HR AT 5 UNITS/HR. NO BEEING NOTED AT THIS TIME. CONT TO MONITOR.
[2022-06-29 06:34] LABS: ALBUMIN 2.6 g/dL (3.4-5.0); ANION GAP 8.7 (8-16); CARBON DIOXIDE 27.3 mmol/L (21-32); CREATININE 0.8 mg/dL (0.6-1.3)
--- NOTE | 2022-06-29 07:29 | NUR ---
RETARTED HEPARIN DRIP AT 0715 AT 50 UNITS/HR PT RESTING COMFORTABLY, NO S/S BLEEDING NOTED. ENDORSED TO CRISTAL, INCOMING RM. GEN CONDITION CRITICAL.
[2022-06-29] MEDS: BLOOD GLUCOSE MONITORING 1 DEV DEV FS SCH ×4 (07:30→21:04)
--- NOTE | 2022-06-29 07:30 | NUR ---
RECEIVED BEDSIDE REPORT FROM MFT JUDY RN. PT AWAKE. A&O X4. ARABIC SPEAKING. SR ON MONITOR. 2L NC. CCHO. IV TO LT FOREARM 18G, RUNNING HEPARIN DRIP @ 500 UNIT/HR. CONTINENT, BEDPAN IN USE. BEDREST. BED TO LOWEST POSITION, CALL LIGHT WITHIN REACH, WILL CONTINUE TO MONITOR.
[2022-06-29] MEDS: LACTULOSE 20 GM/30 ML UDC PO SCH ×3 (08:49→16:17)
[2022-06-29] MEDS: FERROUS GLUCONATE 324 MG TAB PO SCH ×2 (08:51→16:18)
[2022-06-29] MEDS: PROPRANOLOL 20 MG TAB PO SCH ×2 (08:59→21:04)
--- NOTE | 2022-06-29 10:00 | NUR ---
FAMILY/DAUGHTER AT BEDSIDE. UPDATED PT INFORMATION
[2022-06-29] MEDS: MAG SULF 2000 MG/WATER PREMIX 50 ML IV PRN (10:46)
[2022-06-29] MEDS: INSULIN LISPRO SLIDING SCALE 100 UNITS/ML VIAL SUBQ PRN ×3 (11:31→21:08)
[2022-06-29 12:02] LABS: BASOPHILS # (AUTO) 0.1 K/uL (0.00-0.22); BASOPHILS % (AUTO) 0.9 % (0.0-2.0); EOSINOPHILS # (AUTO) 0.3 K/uL (0-0.4); EOSINOPHILS % (AUTO) 4.5 % (0.0-4.0); HEMATOCRIT 23.1 % (36-48); HEMOGLOBIN 7.6 g/dL (12.0-16.0); LYMPHOCYTES # (AUTO) 1.8 K/uL (2.5-16.5); LYMPHOCYTES % (AUTO) 29.2 % (20.5-51.1); MEAN CORPUSCULAR HEMOGLOBIN 29 pg (27-31); MEAN CORPUSCULAR HGB CONC 33 g/dL (33-37); MONOCYTES # (AUTO) 0.7 K/uL (0.8-1.0); NEUTROPHILS # (AUTO) 3.3 K/uL (1.8-7.7); NEUTROPHILS % (AUTO) 53.4 % (42.2-75.2); PLATELET COUNT (AUTO) 123 K/uL (140-450); RED BLOOD CELL COUNT(AUTO) 2.66 MIL/uL (4.20-5.40); RED CELL DISTRIBUTION WIDTH 16.8 % (11.6-13.7); WHITE BLOOD COUNT (AUTO) 6.1 K/uL (4.8-10.8)
--- NOTE | 2022-06-29 13:40 | NUR ---
DR MALCOLM ROUNDING AT BEDSIDE. UPDATED PT INFORMATION. DR MALCOLM WANT TO BE CALLED AND STOP HEPARIN DRIP IF PT HGB TRENDING DOWN AND ACTIVE BLEEDING.
--- NOTE | 2022-06-29 14:30 | NUR ---
DR CUNNINGHAM ROUNDING AT BEDSIDE. UPDATED PT INFORMATION. ORDERED TO STOP HEPARIN DRIP AND CONTINUE CBC CHECK Q 6H.
[2022-06-29 18:28] LABS: BASOPHILS # (AUTO) 0.1 K/uL (0.00-0.22); BASOPHILS % (AUTO) 0.9 % (0.0-2.0); EOSINOPHILS # (AUTO) 0.2 K/uL (0-0.4); EOSINOPHILS % (AUTO) 3.8 % (0.0-4.0); HEMATOCRIT 24.2 % (36-48); LYMPHOCYTES # (AUTO) 1.8 K/uL (2.5-16.5); LYMPHOCYTES % (AUTO) 30.1 % (20.5-51.1); MEAN CORPUSCULAR HEMOGLOBIN 29 pg (27-31); MEAN CORPUSCULAR HGB CONC 33 g/dL (33-37); MEAN CORPUSCULAR VOLUME 86.8 fL (80-94); MONOCYTES # (AUTO) 0.8 K/uL (0.8-1.0); MONOCYTES % (AUTO) 14.2 % (1.7-9.3); PLATELET COUNT (AUTO) 139 K/uL (140-450); RED BLOOD CELL COUNT(AUTO) 2.79 MIL/uL (4.20-5.40); RED CELL DISTRIBUTION WIDTH 16.8 % (11.6-13.7); WHITE BLOOD COUNT (AUTO) 5.9 K/uL (4.8-10.8)
--- NOTE | 2022-06-29 18:55 | NUR ---
FAMILY/SON AT BEDSIDE. UPDATED PT INFORMATION.
--- NOTE | 2022-06-29 19:20 | NUR ---
ENDORSED TO MATERIAL HANDLER 1ST SHIFT AWAIS ROGERS FOR CONTINUITY OF CARE. ALL QUESTIONS ANSWERED.
--- NOTE | 2022-06-29 19:30 | NUR ---
TRANSFER OF CARE FROM DAY SHIFT, REPORT RECEIVED FROM SUE BEE. PATIENT IS AWAKE, ALERT AND LYING IN BED WATCHING TV. DOES NOT APPEAR TO BE IN DISTRESS; HAS 22G RIGHT WRIST. WILL CONTINUE TO MONTIOR PATIENT NEEDED
[2022-06-29] MEDS: ZOLPIDEM 5 MG TAB PO PRN (21:05)
--- NOTE | 2022-06-29 21:30 | NUR ---
PATIENT WITH DIARRHEA, ASSISTED PATIENT TO BEDSIDE COMMODE WITHOUT INCIDENT. PATIENT WAS THEN ASSISTED BACK TO BED, CALL LIGHT PLACED WITHIN REACH
[2022-06-29 21:42] LABS: APPEARANCE,URINE CLEAR (CLEAR); BILIRUBIN,URINE NEGATIVE (NEGATIVE); BLOOD, URINE TRACE-I (NEGATIVE); COLOR,URINE YELLOW (YELLOW); LEUKOCYTE ESTERASE ,URINE NEGATIVE (NEGATIVE); NITRITE, URINE NEGATIVE (NEGATIVE); UGLUCOSE TRACE (NEGATIVE)
[2022-06-29 21:53] LABS: RBC,URINE 0-5 /HPF (0-5); TRICHOMONAS,URINE None Seen /HPF (None Seen); WBC,URINE 0-5 /HPF (0-5); YEAST,URINE None Seen /HPF (None Seen)
--- NOTE | 2022-06-29 23:20 | NUR ---
PATIENT WITH DIARRHEA, UNABLE TO COMPLETELY MAKE IT TO BEDSIDE COMMODE AND HAD LEAKAGE ONTO THE FLOOR AND LINEN. PATIENT ASSISTED TO THE COMMODE, AND PROVIDED WITH A CLEAN GOWN AND SOCKS. ASSISTED PATIENT BACK TO BED, AND NOTIFIED EVS TO COME AND CLEAN. CALL LIGHT PLACED WITHIN REACH
[2022-06-30] VITALS (11 sets, daily range): BP systolic 85–118; BP diastolic 30–69
[2022-06-30 00:38] LABS: BASOPHILS # (AUTO) 0.1 K/uL (0.00-0.22); EOSINOPHILS # (AUTO) 0.3 K/uL (0-0.4); HEMATOCRIT 23.4 % (36-48); HEMOGLOBIN 7.6 g/dL (12.0-16.0); LYMPHOCYTES # (AUTO) 1.8 K/uL (2.5-16.5); LYMPHOCYTES % (AUTO) 29.3 % (20.5-51.1); MEAN CORPUSCULAR HEMOGLOBIN 28 pg (27-31); MEAN CORPUSCULAR HGB CONC 33 g/dL (33-37); MEAN CORPUSCULAR VOLUME 87.4 fL (80-94); MONOCYTES % (AUTO) 16.1 % (1.7-9.3); NEUTROPHILS # (AUTO) 2.9 K/uL (1.8-7.7); NEUTROPHILS % (AUTO) 48.6 % (42.2-75.2); PLATELET COUNT (AUTO) 138 K/uL (140-450); RED BLOOD CELL COUNT(AUTO) 2.68 MIL/uL (4.20-5.40); RED CELL DISTRIBUTION WIDTH 16.8 % (11.6-13.7)
--- NOTE | 2022-06-30 01:00 | NUR ---
PATIENT ASLEEP IN BED, DOES NOT APPEAR TO BE IN DISTRESS. PATIENT IS EASY TO AROUSE. WILL CONTINUE TO MONITOR PATIENT.
[2022-06-30 04:59] LABS: BASOPHILS # (AUTO) 0.1 K/uL (0.00-0.22); BASOPHILS % (AUTO) 1.3 % (0.0-2.0); EOSINOPHILS # (AUTO) 0.3 K/uL (0-0.4); HEMATOCRIT 21.6 % (36-48); HEMOGLOBIN 7.2 g/dL (12.0-16.0); LYMPHOCYTES # (AUTO) 1.5 K/uL (2.5-16.5); LYMPHOCYTES % (AUTO) 27.2 % (20.5-51.1); MEAN CORPUSCULAR HEMOGLOBIN 29 pg (27-31); MEAN CORPUSCULAR HGB CONC 33 g/dL (33-37); MEAN CORPUSCULAR VOLUME 86.7 fL (80-94); MONOCYTES # (AUTO) 0.8 K/uL (0.8-1.0); MONOCYTES % (AUTO) 14.3 % (1.7-9.3); NEUTROPHILS % (AUTO) 52.2 % (42.2-75.2); PLATELET COUNT (AUTO) 131 K/uL (140-450); RED BLOOD CELL COUNT(AUTO) 2.49 MIL/uL (4.20-5.40); RED CELL DISTRIBUTION WIDTH 16.7 % (11.6-13.7); WHITE BLOOD COUNT (AUTO) 5.7 K/uL (4.8-10.8)
[2022-06-30 05:26] LABS: ALBUMIN 2.4 g/dL (3.4-5.0); ANION GAP 8.1 (8-16); CARBON DIOXIDE 28.6 mmol/L (21-32); CREATININE 0.7 mg/dL (0.6-1.3); POTASSIUM 3.7 mmol/L (3.5-5.1); TOTAL BILIRUBIN 0.8 mg/dL (0.0-1.0)
[2022-06-30] MEDS: BLOOD GLUCOSE MONITORING 1 DEV DEV FS SCH ×4 (06:34→21:50)
[2022-06-30] MEDS: LEVOTHYROXINE 0.025 MG TAB PO SCH (06:35)
[2022-06-30] MEDS: PANTOPRAZOLE 40 MG TABEC PO SCH (06:35)
[2022-06-30] MEDS: INSULIN LISPRO SLIDING SCALE 100 UNITS/ML VIAL SUBQ PRN ×4 (06:36→21:53)
--- NOTE | 2022-06-30 06:36 | NUR ---
PATIENT NOTED TO HAVE HYPOTENSION. GAVE PATIENT 250ML NS BOLUS FLUID CHALLENGE AND BP REMAINS LOW. NOTIFIED; NEW ORDERS FOR MIDODRINE 10MG Q6, AND AN ADDITIONAL 500ML NS FLUID BOLUS Addendum: 06/30/22 at 0647 by Delores Perez RN *DR. GAINES Addendum: 06/30/22 at 0650 by Delores Perez RN BP READINGS: 0610 = 71/42 0640 = 69/38 0647 = 81/54
[2022-06-30] MEDS ORDERED: MIDODRINE 5 MG TAB ONE (06:42)
[2022-06-30] MEDS: MIDODRINE 5 MG TAB PO SCH ×3 (06:47→17:17)
[2022-06-30] MEDS ORDERED: NACL 0.9% 500 ML IV SCH (07:00)
--- NOTE | 2022-06-30 07:12 | NUR ---
TRANSFER OF CARE TO DAY [facility], REPORT ENDORSED TO CRISTAL FOR CONTINUITY OF CARE
--- NOTE | 2022-06-30 07:15 | NUR ---
RECEIVED BEDSIDE REPORT FROM ONLINE MARKETING STRATEGIST AWAIS ROGERS. PT IS SLEEPING. ROOM AIR. RECEIVING 250 ML NS BOLUS. BP 77/53 (53), HR 66, RR 17, O2 SAT 92% ON ROOM AIR. NO ACTIVE BLEEDING NOTED SINCE STOPPED THE HEPARIN DRIP.
--- NOTE | 2022-06-30 07:43 | NUR ---
UPDATED PT INFORMATION TO DR MALCOLM VIA TEXT MESSAGE. HGB DROPPED TO 7.2, ORDERED 1 UNIT PRBC.
[2022-06-30] MEDS: LACTULOSE 20 GM/30 ML UDC PO SCH ×3 (08:21→17:17)
[2022-06-30] MEDS: FERROUS GLUCONATE 324 MG TAB PO SCH ×2 (08:22→17:18)
[2022-06-30] MEDS: PROPRANOLOL 20 MG TAB PO SCH ×2 (09:00→21:00)
--- NOTE | 2022-06-30 10:10 | NUR ---
BLOOD TRANSFUSION STARTED. VS STABLE, TEMP 97.5, PULSE 64, RR 19, BP 96/60, NO PAIN REPORTED. PT SLEEPING.
--- NOTE | 2022-06-30 14:00 | NUR ---
DR CUNNINGHAM ROUNDJOSIE AT BEDSIDE. UPDATED PT INFORMATION. DOWNGRADE PT TO TELE.
[2022-06-30 15:03] LABS: BASOPHILS # (AUTO) 0.1 K/uL (0.00-0.22); BASOPHILS % (AUTO) 1.1 % (0.0-2.0); EOSINOPHILS # (AUTO) 0.3 K/uL (0-0.4); EOSINOPHILS % (AUTO) 4.3 % (0.0-4.0); HEMATOCRIT 27.7 % (36-48); HEMOGLOBIN 9.1 g/dL (12.0-16.0); LYMPHOCYTES # (AUTO) 1.3 K/uL (2.5-16.5); MEAN CORPUSCULAR HEMOGLOBIN 29 pg (27-31); MEAN CORPUSCULAR HGB CONC 33 g/dL (33-37); MEAN CORPUSCULAR VOLUME 88.3 fL (80-94); MONOCYTES # (AUTO) 0.9 K/uL (0.8-1.0); MONOCYTES % (AUTO) 14.7 % (1.7-9.3); NEUTROPHILS # (AUTO) 3.5 K/uL (1.8-7.7); NEUTROPHILS % (AUTO) 57.9 % (42.2-75.2); PLATELET COUNT (AUTO) 139 K/uL (140-450); RED BLOOD CELL COUNT(AUTO) 3.14 MIL/uL (4.20-5.40); RED CELL DISTRIBUTION WIDTH 16.9 % (11.6-13.7)
--- NOTE | 2022-06-30 17:29 | NUR ---
FAMILY/SON AT BEDSIDE. UPDATED PT INFORMATION.
--- NOTE | 2022-06-30 19:12 | NUR ---
ENDORSED TO CELL POURER AWAIS ROGERS FOR CONTINUITY OF CARE. ALL QUESTIONS ANSWERED.
--- NOTE | 2022-06-30 19:18 | NUR ---
TRANSFER OF CARE FROM DAY SHIFT, REPORT RECEIVED FROM SUE BEE. PATIENT IS AWAKE, ALERT AND ORIENTED. LYING IN BED AND WATCHING TV. PATIENT DOES NOT APPEAR TO BE DISTRESS AND HAS BEEN DOWNGRADED TO TELE STATUS; WILL TRANSFER TO FLOOR WHEN BED BECOMES AVAILABLE. CURRENT VITALS ON PATIENT AT START OF SHIFT, BP = 118/51, HR = 61, TEMP = 98.3F, R = 20, O2 SAT = 98%. PATIENT HAS 22G RIGHT FOREARM. WILL CONTINUE TO MONITOR PATIENT AND ATTEND TO ALL NEEDS
[2022-06-30 19:24] LABS: BASOPHILS % (AUTO) 0.6 % (0.0-2.0); EOSINOPHILS # (AUTO) 0.3 K/uL (0-0.4); EOSINOPHILS % (AUTO) 4.6 % (0.0-4.0); HEMATOCRIT 26.4 % (36-48); HEMOGLOBIN 8.9 g/dL (12.0-16.0); LYMPHOCYTES # (AUTO) 1.8 K/uL (2.5-16.5); LYMPHOCYTES % (AUTO) 26.8 % (20.5-51.1); MEAN CORPUSCULAR HEMOGLOBIN 29 pg (27-31); MEAN CORPUSCULAR HGB CONC 34 g/dL (33-37); MONOCYTES % (AUTO) 14.7 % (1.7-9.3); NEUTROPHILS # (AUTO) 3.6 K/uL (1.8-7.7); NEUTROPHILS % (AUTO) 53.3 % (42.2-75.2); PLATELET COUNT (AUTO) 140 K/uL (140-450); RED BLOOD CELL COUNT(AUTO) 3.04 MIL/uL (4.20-5.40); RED CELL DISTRIBUTION WIDTH 16.4 % (11.6-13.7); WHITE BLOOD COUNT (AUTO) 6.8 K/uL (4.8-10.8)
[2022-06-30 21:54] LABS: BASOPHILS # (AUTO) 0.1 K/uL (0.00-0.22); BASOPHILS % (AUTO) 0.9 % (0.0-2.0); EOSINOPHILS # (AUTO) 0.3 K/uL (0-0.4); HEMATOCRIT 28.4 % (36-48); HEMOGLOBIN 9.5 g/dL (12.0-16.0); LYMPHOCYTES # (AUTO) 1.7 K/uL (2.5-16.5); LYMPHOCYTES % (AUTO) 24.6 % (20.5-51.1); MEAN CORPUSCULAR HEMOGLOBIN 29 pg (27-31); MEAN CORPUSCULAR HGB CONC 34 g/dL (33-37); MONOCYTES # (AUTO) 1.1 K/uL (0.8-1.0); MONOCYTES % (AUTO) 15.5 % (1.7-9.3); NEUTROPHILS # (AUTO) 3.7 K/uL (1.8-7.7); PLATELET COUNT (AUTO) 151 K/uL (140-450); RED BLOOD CELL COUNT(AUTO) 3.26 MIL/uL (4.20-5.40); RED CELL DISTRIBUTION WIDTH 16.1 % (11.6-13.7); WHITE BLOOD COUNT (AUTO) 6.8 K/uL (4.8-10.8)
--- NOTE | 2022-06-30 23:00 | NUR ---
PATIENT HAS BED ASSIGNMENT FOR TELE; WILL TRANSFER TO ROOM 119B. TELEPHONE REPORT GIVEN TO SUE PITTMAN.
[2022-07-01] VITALS (7 sets, daily range): BP systolic 98–122; BP diastolic 46–70
--- NOTE | 2022-07-01 | NUR ---
PATIENT LEFT ICU IN STABLE CONDITION AND TRANSFERRED VIA GURNEY TO [facility], ROOM 119B. PATIENT LEFT WITH ALL BELONGINGS, ALL QUESTIONS ANSWERED.
--- NOTE | 2022-07-01 00:05 | NUR ---
RECEIVED PATIENT FROM ICU VIA BED. PATIENT AWAKE , ALERT, ORIENTED X3, BELARUSIAN SPEAKING ONLY. RESEARCH PROJECT MANAGER PROVIDED. PATIENT NOT IN ANY DISTRESS AND NO COMPLAIN AT THIS TIME. VSS, AFEBRILE, SATING 95% ON RA. SINUS RHYTHM ON RETAIL PRODUCT ADVISOR, HR-90. NOTED BILATERAL UPPER ARM BRUISING ON ARRIVAL TO THE FLOOR.ORIENTED THE PATIENT TO THE ROOM SETTING AND USE OF CALL LIGHT SYSTEM. FALL PRECAUTION IMPLEMENTED. INSTRUCTED TO CALL FOR ASSISTANCE AT ALL TIMES. PATIENT VERBALIZED UNDERSTANDING. CALL LIGHT WITHIN REACH. WILL CONTINUE POC AND MONITORING.
[2022-07-01] MEDS: MIDODRINE 5 MG TAB PO SCH ×4 (00:17→17:31)
--- NOTE | 2022-07-01 02:00 | NUR ---
PATIENT ASLEEP AT THIS TIME. VISIBLE CHEST RISE AND FALL NOTED. SAFETY MEASURES IN PLACED.
--- NOTE | 2022-07-01 04:10 | NUR ---
PATIENT VITAL SIGNS STABLE,AFEBRILE, SATING 95% ON RA. SR ON TELE MONITOR, HR-71. NOT IN ANY DISTRESS AND NO COMPLAIN AT THIS TIME. CALL LIGHT WITHIN REACH. WILL CONTINUE POC.
[2022-07-01 05:59] LABS: BASOPHILS % (AUTO) 0.7 % (0.0-2.0); EOSINOPHILS # (AUTO) 0.4 K/uL (0-0.4); HEMATOCRIT 25.9 % (36-48); HEMOGLOBIN 8.6 g/dL (12.0-16.0); LYMPHOCYTES # (AUTO) 1.8 K/uL (2.5-16.5); LYMPHOCYTES % (AUTO) 27.3 % (20.5-51.1); MEAN CORPUSCULAR HEMOGLOBIN 29 pg (27-31); MEAN CORPUSCULAR HGB CONC 33 g/dL (33-37); MEAN CORPUSCULAR VOLUME 87.9 fL (80-94); MONOCYTES % (AUTO) 15.2 % (1.7-9.3); NEUTROPHILS # (AUTO) 3.4 K/uL (1.8-7.7); NEUTROPHILS % (AUTO) 50.8 % (42.2-75.2); PLATELET COUNT (AUTO) 139 K/uL (140-450); RED BLOOD CELL COUNT(AUTO) 2.94 MIL/uL (4.20-5.40); RED CELL DISTRIBUTION WIDTH 16.4 % (11.6-13.7); WHITE BLOOD COUNT (AUTO) 6.6 K/uL (4.8-10.8)
--- NOTE | 2022-07-01 06:00 | NUR ---
NO ACUTE EVENT THROUGHOUT THE NIGHT. PATIENT NOT IN ANY DISTRESS AND NO COMPLAIN AT THIS TIME. ALL NEEDS ATTENDED. WILL ENDORSE THE PATIENT TO THE ONCOMING NURSE FOR CONTINUITY OF CARE. CALL LIGHT WITHIN REACH.
[2022-07-01] MEDS: PANTOPRAZOLE 40 MG TABEC PO SCH (06:11)
[2022-07-01] MEDS: LEVOTHYROXINE 0.025 MG TAB PO SCH (06:11)
[2022-07-01] MEDS: BLOOD GLUCOSE MONITORING 1 DEV DEV FS SCH ×4 (06:11→21:17)
[2022-07-01 06:26] LABS: ALBUMIN 2.4 g/dL (3.4-5.0); ANION GAP 8.7 (8-16); CARBON DIOXIDE 27.8 mmol/L (21-32); CREATININE 0.7 mg/dL (0.6-1.3); POTASSIUM 3.5 mmol/L (3.5-5.1)
--- NOTE | 2022-07-01 07:37 | NUR ---
ENDORSED PATIENT TO ONCOMING SUE CORBIN. PT STABLE. SIGNING OFF.
[2022-07-01] MEDS: FERROUS GLUCONATE 324 MG TAB PO SCH ×2 (08:00→17:30)
[2022-07-01] MEDS: LACTULOSE 20 GM/30 ML UDC PO SCH ×3 (10:13→17:30)
[2022-07-01] MEDS: PROPRANOLOL 20 MG TAB PO SCH ×2 (10:14→21:05)
[2022-07-01] MEDS: INSULIN LISPRO SLIDING SCALE 100 UNITS/ML VIAL SUBQ PRN ×3 (11:54→21:21)
--- NOTE | 2022-07-01 19:30 | NUR ---
RECEIVED REPORT FROM DAYS SHIFT NURSE SCOOTER FOR CONTINUITY OF CARE. PATIENT IS A&O X3-4, FILIPINO SPEAKING. PATIENT IS ON ROOM AIR; BREATHING IS NORMAL WITH SYMMETRICAL RISE AND FALL OF CHEST. IV IS A 22G RIGHT WRIST, NO FLUIDS RUNNING AT THIS TIME (SL). PATIENT AMBULATES TO BATHROOM. PATIENT IS AWAKE LYING SEMI-FOWLERS IN BED, WATCHING TV; BED IS IN LOWEST POSITION, WHEELS LOCKED, CALL LIGHT IN PLACE. WILL CONTINUE TO OBSERVE PATIENT.
[2022-07-01 21:16] LABS: BASOPHILS # (AUTO) 0.1 K/uL (0.00-0.22); EOSINOPHILS # (AUTO) 0.3 K/uL (0-0.4); EOSINOPHILS % (AUTO) 3.6 % (0.0-4.0); HEMOGLOBIN 9.7 g/dL (12.0-16.0); LYMPHOCYTES % (AUTO) 28.2 % (20.5-51.1); MEAN CORPUSCULAR HEMOGLOBIN 30 pg (27-31); MEAN CORPUSCULAR HGB CONC 33 g/dL (33-37); MEAN CORPUSCULAR VOLUME 88.3 fL (80-94); MONOCYTES # (AUTO) 1.3 K/uL (0.8-1.0); MONOCYTES % (AUTO) 18.5 % (1.7-9.3); NEUTROPHILS # (AUTO) 3.5 K/uL (1.8-7.7); NEUTROPHILS % (AUTO) 48.7 % (42.2-75.2); PLATELET COUNT (AUTO) 170 K/uL (140-450); RED BLOOD CELL COUNT(AUTO) 3.28 MIL/uL (4.20-5.40); WHITE BLOOD COUNT (AUTO) 7.1 K/uL (4.8-10.8)
[2022-07-02] VITALS: BP 110/44
[2022-07-02] MEDS: MIDODRINE 5 MG TAB PO SCH ×3 (00:10→13:08)
[2022-07-02 04:00] VITALS: BP 92/53
--- NOTE | 2022-07-02 04:30 | NUR ---
PATIENT SLEPT THROUGHOUT THE NIGHT. MEDICATION WAS ADMINISTERED TO PATIENT WITHOUT ANY ISSUES. PATIENT CURRENTLY SLEEPING. BREATHING IS NORMAL WITH SYMMETRICAL RISE AND FALL OF CHEST. WILL CONTINUE TO OBSERVE PATIENT.
[2022-07-02 05:23] LABS: BASOPHILS # (AUTO) 0.1 K/uL (0.00-0.22); BASOPHILS % (AUTO) 0.8 % (0.0-2.0); EOSINOPHILS # (AUTO) 0.3 K/uL (0-0.4); EOSINOPHILS % (AUTO) 5.1 % (0.0-4.0); HEMATOCRIT 26.6 % (36-48); HEMOGLOBIN 8.8 g/dL (12.0-16.0); LYMPHOCYTES # (AUTO) 1.9 K/uL (2.5-16.5); LYMPHOCYTES % (AUTO) 29.5 % (20.5-51.1); MEAN CORPUSCULAR HEMOGLOBIN 29 pg (27-31); MEAN CORPUSCULAR HGB CONC 33 g/dL (33-37); MEAN CORPUSCULAR VOLUME 87.9 fL (80-94); NEUTROPHILS # (AUTO) 3.2 K/uL (1.8-7.7); NEUTROPHILS % (AUTO) 49.6 % (42.2-75.2); PLATELET COUNT (AUTO) 143 K/uL (140-450); RED BLOOD CELL COUNT(AUTO) 3.02 MIL/uL (4.20-5.40); RED CELL DISTRIBUTION WIDTH 16.7 % (11.6-13.7); WHITE BLOOD COUNT (AUTO) 6.4 K/uL (4.8-10.8)
[2022-07-02] MEDS: PANTOPRAZOLE 40 MG TABEC PO SCH (05:52)
[2022-07-02] MEDS: LEVOTHYROXINE 0.025 MG TAB PO SCH (05:52)
[2022-07-02 06:25] LABS: ALBUMIN 2.4 g/dL (3.4-5.0); ANION GAP 10.7 (8-16); CARBON DIOXIDE 26.1 mmol/L (21-32); CREATININE 0.7 mg/dL (0.6-1.3); POTASSIUM 3.8 mmol/L (3.5-5.1); TOTAL BILIRUBIN 1.2 mg/dL (0.0-1.0)
[2022-07-02] MEDS: BLOOD GLUCOSE MONITORING 1 DEV DEV FS SCH ×2 (06:31→11:43)
--- NOTE | 2022-07-02 07:01 | NUR ---
ENDORSED TO DAY SHIFT NURSE JOHN FOR CONTINUITY OF CARE. PATIENT IS STABLE.
[2022-07-02 08:00] VITALS: BP 92/57
[2022-07-02] MEDS ORDERED: PROP20TA29 PO (08:07)
[2022-07-02] MEDS ORDERED: PRO5 PO (08:07)
[2022-07-02] MEDS ORDERED: PANT40EC56 PO (08:07)
[2022-07-02] MEDS ORDERED: LACT10SO11 PO (08:07)
[2022-07-02] MEDS ORDERED: FERR324T11 PO (08:07)
[2022-07-02] MEDS: LACTULOSE 20 GM/30 ML UDC PO SCH ×2 (08:15→13:07)
[2022-07-02] MEDS: FERROUS GLUCONATE 324 MG TAB PO SCH (08:16)
[2022-07-02] MEDS: PROPRANOLOL 20 MG TAB PO SCH (08:17)
[2022-07-02] MEDS: INSULIN LISPRO SLIDING SCALE 100 UNITS/ML VIAL SUBQ PRN (11:43)
[2022-07-02 12:00] VITALS: BP 102/56
[2022-07-02 13:34] VITALS: BP 102/56
--- NOTE | 2022-07-02 14:22 | NUR ---
DISCHARGE PATIENT IN STABLE CONDITION PER PCP ORDER. DISCHARGE INSTRUCTION GIVE, DISCHARGE CONSENT SIGNED, IV ACCESS, WRIST BAND, & TEL. MONITOR REMOVED PRIOR WHEEL PATIENT OUT THE HOSPITAL. SON IS WITHIN PATIENT DURING WHOLE DISCHARGE PROCESS.
== END 2022-07-02 14:30 | disposition home or self-care (01) ==
LOC: MED 00:03 → MTU 06:25 → MIC 06-28 16:32 → MTU 07-01 00:05
PROVIDERS: ADMIT Internal Medicine; ATTEND Internal Medicine
PROC: 30233N1 Transfusion of Nonautologous Red Blood Cells into Peripheral Vein, Percutaneous Approach (ICD-10-PCS; 2022-06-25)
PROC: 06L38CZ Occlusion of Esophageal Vein with Extraluminal Device, Via Natural or Artificial Opening Endoscopic (ICD-10-PCS; principal; 2022-06-25 14:15)
DX: K74.69 Other cirrhosis of liver (principal); I81 Portal vein thrombosis; I85.11 Secondary esophageal varices with bleeding; E43 Unspecified severe protein-calorie malnutrition; K76.6 Portal hypertension; D69.6 Thrombocytopenia, unspecified; K92.0 Hematemesis; D62 Acute posthemorrhagic anemia; K75.81 Nonalcoholic steatohepatitis (NASH); E11.9 Type 2 diabetes mellitus without complications; E03.9 Hypothyroidism, unspecified; K92.1 Melena; Z68.30 Body mass index [BMI] 30.0-30.9, adult; M19.90 Unspecified osteoarthritis, unspecified site; I10 Essential (primary) hypertension; Z20.822 Contact with and (suspected) exposure to COVID-19; E83.42 Hypomagnesemia; Z79.82 Long term (current) use of aspirin
CPT/HCPCS: 36415; 76700; 80048; 80053; 81001; 82105; 82140; 82948; 83605; 83690; 83735; 85018; 85025; 85610; 85730; 86704; 86706; 86708; 86709; 86803; 86886; 86900; 86901; 86920; 87081; 87340; 93005; 96365; 96368; 96375; 99291; C9113; J0696; J1200; J1644; J1815; J2250; J2354; J2765; J3010; J3475; J7030; J7060; P9016; P9046; Q0092; Q9967

== ENCOUNTER 2022-07-23 14:46 | Inpatient (IN) | payer OTHER ==
[~2022-07-23] VITALS: Ht 154.9 cm; Wt 82.3 kg
[~2022-07-23 14:46] MED LIST changes: -ASPI81CT95 PO; -CIPR500T4 PO; -FAMO-92 PO; +FERR324T11 PO; -IBUP-2213 PO; -LISI2.5T12 PO; -LISI5TAB PO; -NAPR-54 PO; +PANT40EC56 PO; +PRO5 PO
[2022-07-23 14:58] VITALS: BP 118/69
--- NOTE | 2022-07-23 16:47 | NUR ---
PT AMBULATED TO BED 4
[2022-07-23 17:08] LABS: BASOPHILS # (AUTO) 0.1 K/uL (0.00-0.22); BASOPHILS % (AUTO) 1.1 % (0.0-2.0); EOSINOPHILS # (AUTO) 0.2 K/uL (0-0.4); EOSINOPHILS % (AUTO) 3.7 % (0.0-4.0); HEMATOCRIT 34.9 % (36-48); HEMOGLOBIN 11.2 g/dL (12.0-16.0); LYMPHOCYTES # (AUTO) 1.3 K/uL (2.5-16.5); LYMPHOCYTES % (AUTO) 27.9 % (20.5-51.1); MEAN CORPUSCULAR HEMOGLOBIN 29 pg (27-31); MEAN CORPUSCULAR HGB CONC 32 g/dL (33-37); MEAN CORPUSCULAR VOLUME 90.9 fL (80-94); MONOCYTES # (AUTO) 0.8 K/uL (0.8-1.0); MONOCYTES % (AUTO) 16.6 % (1.7-9.3); NEUTROPHILS # (AUTO) 2.3 K/uL (1.8-7.7); NEUTROPHILS % (AUTO) 50.7 % (42.2-75.2); PLATELET COUNT (AUTO) 149 K/uL (140-450); RED BLOOD CELL COUNT(AUTO) 3.84 MIL/uL (4.20-5.40); RED CELL DISTRIBUTION WIDTH 18.8 % (11.6-13.7); WHITE BLOOD COUNT (AUTO) 4.6 K/uL (4.8-10.8)
[2022-07-23 17:53] LABS: ANION GAP 8.9 (8-16); CARBON DIOXIDE 30.7 mmol/L (21-32); CREATININE 1.1 mg/dL (0.6-1.3); POTASSIUM 3.6 mmol/L (3.5-5.1)
[2022-07-23 17:59] LABS: ALBUMIN 2.4 g/dL (3.4-5.0); TOTAL BILIRUBIN 1.2 mg/dL (0.0-1.0)
[2022-07-23] MEDS ORDERED: FURO-570 PO (18:38)
[2022-07-23] MEDS ORDERED: HYDROcodone/APAP 5/325 MG 1 TAB TAB PO PRN (19:40)
[2022-07-23] MEDS ORDERED: ACETAMINOPHEN 325 MG TAB PO PRN (19:40)
[2022-07-23] MEDS ORDERED: POTASSIUM CHLORIDE 10 MEQ TABER PO PRN (19:40)
[2022-07-23] MEDS ORDERED: MAGNESIUM OXIDE 400 MG TAB PO PRN (19:40)
[2022-07-23] MEDS ORDERED: MORPHINE SULFATE 2 MG/ML SYR IVP PRN (19:40)
[2022-07-23] MEDS ORDERED: MAG SULF 2000 MG/WATER PREMIX 50 ML IV PRN (19:40)
[2022-07-23] MEDS ORDERED: KCL 20 MEQ IN 100 mL PREMIX 200 ML IV PRN (19:40)
--- NOTE | 2022-07-23 19:50 | NUR ---
Patient resting in bed, A/Ox4, chest rise and fall symmetrical, no c/o pain or s/s of discomfort.
--- NOTE | 2022-07-23 20:49 | NUR ---
BELONGINGS LIST DONE.
--- NOTE | 2022-07-23 21:00 | NUR ---
Patient resting in bed, A/Ox4, chest rise and fall symmetrical, no c/o pain or s/s of discomfort. Addendum: 07/23/22 at 2325 by [id number] Patient resting in bed, A/Ox4, chest rise and fall symmetrical, no s/s of discomfort.
[2022-07-23] MEDS ORDERED: DEXTROSE 50% 50 ML SYR IVP PRN ×2 (21:30→21:45)
[2022-07-23] MEDS ORDERED: INSULIN LISPRO SLIDING SCALE 100 UNITS/ML VIAL SUBQ PRN (21:30)
[2022-07-23] MEDS: BLOOD GLUCOSE MONITORING 1 DEV DEV FS SCH (21:52)
[2022-07-23] MEDS: INSULIN LISPRO SLIDING SCALE 100 UNITS/ML VIAL SUBQ PRN (21:52)
--- NOTE | 2022-07-23 23:10 | NUR ---
Patient resting in bed, A/Ox4, chest rise and fall symmetrical, no s/s of discomfort.
--- NOTE | 2022-07-23 23:44 | NUR ---
Patient will be admitted to care of Lindsey ROGERS. Admited to Medsurg. Will go to room 125B. Belongings list completed. Report to Lindsey ROGERS. Lindsey ROGERS verbalized understanding of report, no further questions
--- NOTE | 2022-07-23 23:55 | NUR ---
PT WAS ADMITTED TO [facility] DEPARTMENT FROM ER THRU [facility] WITH DIAGNOSIS OF ASCITES. PT IS AOX4, VIETNAMESE SPEAKING, AMBULATORY WITH ASSIST, ABLE TO VERBALIZE NEEDS AND ABLE TO FOLLOW COMMANDS. PT IS ON ROOM AIR AND ON CCHO DIET. PT HAS IV ON RIGHT AC GAUGE 20, SALINE LOCKED. PT SKIN IS INTACT. NO COMPLAIN OF PAIN AT THIS TIME. NO S/S OF RESPIRATORY DISTRESS NOTED. PT WAS ORIENTED TO ROOM/HOSPITAL. BED BUTTON AND CALL LIGHT. ALL SAFETY MEASURES IMPLEMENTED. BED IN LOW POSITION, BED WHEELS ON LOCK AND CALL LIGHT WITHIN REACH.
--- NOTE | 2022-07-24 02:00 | NUR ---
PT IS SLEEPING. CHEST RISE AND FALL SYMMETRICALLY NOTED. RESPIRATION IS EVEN AND UNLABORED. ALL SAFETY MEASURES IMPLEMENTED. BED IN LOW POSITION, BED WHEELS ON LOCK AND CALL LIGHT WITHIN REACH.
--- NOTE | 2022-07-24 04:00 | NUR ---
CHECKED THE PT, STILL SLEEPING. CHEST RISE AND FALL SYMMETRICALLY NOTED. RESPIRATION IS EVEN AND UNLABORED. ALL SAFETY MEASURES IMPLEMENTED. BED IN LOW POSITION, BED WHEELS ON LOCK AND CALL LIGHT WITHIN REACH.
[2022-07-24 05:16] LABS: BASOPHILS % (AUTO) 0.7 % (0.0-2.0); EOSINOPHILS # (AUTO) 0.2 K/uL (0-0.4); EOSINOPHILS % (AUTO) 4.6 % (0.0-4.0); HEMATOCRIT 29.6 % (36-48); HEMOGLOBIN 9.7 g/dL (12.0-16.0); LYMPHOCYTES # (AUTO) 1.5 K/uL (2.5-16.5); LYMPHOCYTES % (AUTO) 29.7 % (20.5-51.1); MEAN CORPUSCULAR HEMOGLOBIN 29 pg (27-31); MEAN CORPUSCULAR HGB CONC 33 g/dL (33-37); MEAN CORPUSCULAR VOLUME 88.8 fL (80-94); MONOCYTES # (AUTO) 0.8 K/uL (0.8-1.0); MONOCYTES % (AUTO) 16.3 % (1.7-9.3); NEUTROPHILS # (AUTO) 2.4 K/uL (1.8-7.7); NEUTROPHILS % (AUTO) 48.7 % (42.2-75.2); PLATELET COUNT (AUTO) 124 K/uL (140-450); RED BLOOD CELL COUNT(AUTO) 3.33 MIL/uL (4.20-5.40); RED CELL DISTRIBUTION WIDTH 18.9 % (11.6-13.7)
[2022-07-24 05:47] LABS: ALBUMIN 2.4 g/dL (3.4-5.0); ANION GAP 9.8 (8-16); CARBON DIOXIDE 28.7 mmol/L (21-32); CREATININE 0.9 mg/dL (0.6-1.3); MAGNESIUM 1.4 mg/dL (1.8-2.4); POTASSIUM 3.5 mmol/L (3.5-5.1); TOTAL BILIRUBIN 1.1 mg/dL (0.0-1.0)
[2022-07-24] MEDS: BLOOD GLUCOSE MONITORING 1 DEV DEV FS SCH ×4 (06:36→20:41)
[2022-07-24] MEDS: INSULIN LISPRO SLIDING SCALE 100 UNITS/ML VIAL SUBQ PRN ×4 (06:37→20:46)
--- NOTE | 2022-07-24 06:37 | NUR ---
PT BLOOD GLUCOSE IS 238. HUMALOG INSULIN 4 UNITS WAS GIVEN TO PT. ALL SAFETY MEASURES IMPLEMENTED. BE DIN LOW POSITION, BED WHEELS ON LOCK AND CALL LIGHT WITHIN REACH.
--- NOTE | 2022-07-24 07:21 | NUR ---
PT IS STABLE. ENDORSED PT TO THE MORNING SHIFT NURSE FOR CONTINUITY OF CARE.
[2022-07-24] MEDS ORDERED: BLOOD GLUCOSE MONITORING 1 DEV DEV FS SCH (07:30)
--- NOTE | 2022-07-24 07:40 | NUR ---
GOT REPORT FROM THE NIGHT NURSE, PT SLEEPING NO SOB .[id number]
[2022-07-24 08:00] VITALS: BP 159/60
--- NOTE | 2022-07-24 10:04 | NUR ---
PATIENT HAS BEEN SCREENED AND CATEGORIZED MODERATE NUTRITION RISK. PATIENT WILL BE SEEN WITHIN 3-5 DAYS OF ADMISSION. / REVIEWED BY PRISCILLA BERNABE RD
[2022-07-24 14:25] VITALS: BP 159/60
[2022-07-24 15:46] VITALS: BP 102/61
[2022-07-24] MEDS ORDERED: FUROSEMIDE 40 MG/4 ML VIAL IVP SCH (17:06)
[2022-07-24 17:19] LABS: EOSINOPHILS # (AUTO) 0.2 K/uL (0-0.4); EOSINOPHILS % (AUTO) 3.8 % (0.0-4.0); HEMATOCRIT 32.9 % (36-48); HEMOGLOBIN 10.5 g/dL (12.0-16.0); LYMPHOCYTES # (AUTO) 1.1 K/uL (2.5-16.5); MEAN CORPUSCULAR HEMOGLOBIN 28 pg (27-31); MEAN CORPUSCULAR HGB CONC 32 g/dL (33-37); MEAN CORPUSCULAR VOLUME 88.6 fL (80-94); MONOCYTES # (AUTO) 0.6 K/uL (0.8-1.0); MONOCYTES % (AUTO) 14.1 % (1.7-9.3); NEUTROPHILS # (AUTO) 2.3 K/uL (1.8-7.7); NEUTROPHILS % (AUTO) 55.1 % (42.2-75.2); PLATELET COUNT (AUTO) 131 K/uL (140-450); RED BLOOD CELL COUNT(AUTO) 3.71 MIL/uL (4.20-5.40); RED CELL DISTRIBUTION WIDTH 18.7 % (11.6-13.7); WHITE BLOOD COUNT (AUTO) 4.1 K/uL (4.8-10.8)
--- NOTE | 2022-07-24 17:33 | NUR ---
GIVEN LASIX ORDERED, X-RAY AND LAB WORK IS ORDERED. DC'D DISCHARGE. [id number]
[2022-07-24 17:36] LABS: ALBUMIN 2.6 g/dL (3.4-5.0); ANION GAP 8.1 (8-16); CARBON DIOXIDE 29.6 mmol/L (21-32); CREATININE 0.9 mg/dL (0.6-1.3); POTASSIUM 3.7 mmol/L (3.5-5.1); TOTAL BILIRUBIN 1.3 mg/dL (0.0-1.0)
--- NOTE | 2022-07-24 19:15 | NUR ---
RECEIVED PT FROM MORNING SHIFT NURSE. PT IS AOX4. KISWAHILI SPEAKING, ABLE TO VERBALIZE NEEDS AND ABLE TO FOLLOW COMMANDS. PT IS ON ROOM AIR AND ON CCHO DIET. PT SKIN IS INTACT. NO COMPLAIN OF PAIN AT THIS TIME. NO S/S OF RESPIRATORY DISTRESS NOTED. ALL SAFETY MEASURES IMPLEMENTED. BED IN LOW POSITION. BED WHEELS ON LOCKED AND CALL LIGHT WITHIN REACH.
--- NOTE | 2022-07-24 22:00 | NUR ---
PT WAS GIVEN 2 WARM BLANKET PER PT REQUEST. PT DENIES PAIN AND NO S/S OF RESPIRATORY DISTRESS NOTED. ALL SAFETY MEASURES IMPLEMENTED. BED IN LOW POSITION. BED WHEELS ON LOCKED AND CALL LIGHT WITHIN REACH.
[2022-07-25] VITALS: BP 133/82
--- NOTE | 2022-07-25 | NUR ---
PT IS SLEEPING. CHEST RISE AND FALL SYMMETRICALLY NOTED. RESPIRATION IS EVEN AND UNLABORED. ALL SAFETY MEASURES IMPLEMENTED. BED IN LOW POSITION. BED WHEELS ON LOCKED AND CALL LIGHT WITHIN REACH.
[2022-07-25 05:44] LABS: BASOPHILS % (AUTO) 0.9 % (0.0-2.0); EOSINOPHILS # (AUTO) 0.2 K/uL (0-0.4); HEMATOCRIT 29.6 % (36-48); HEMOGLOBIN 9.7 g/dL (12.0-16.0); LYMPHOCYTES # (AUTO) 1.3 K/uL (2.5-16.5); LYMPHOCYTES % (AUTO) 25.6 % (20.5-51.1); MEAN CORPUSCULAR HEMOGLOBIN 29 pg (27-31); MEAN CORPUSCULAR HGB CONC 33 g/dL (33-37); MEAN CORPUSCULAR VOLUME 88.7 fL (80-94); MONOCYTES # (AUTO) 0.8 K/uL (0.8-1.0); NEUTROPHILS # (AUTO) 2.7 K/uL (1.8-7.7); NEUTROPHILS % (AUTO) 53.5 % (42.2-75.2); PLATELET COUNT (AUTO) 122 K/uL (140-450); RED BLOOD CELL COUNT(AUTO) 3.34 MIL/uL (4.20-5.40); RED CELL DISTRIBUTION WIDTH 18.6 % (11.6-13.7)
[2022-07-25] MEDS: BLOOD GLUCOSE MONITORING 1 DEV DEV FS SCH ×2 (06:31→11:30)
--- NOTE | 2022-07-25 06:31 | NUR ---
PT BLOOD SUGAR IS 202. HUMALOG INSULIN 4 UNITS WAS GIVEN TO PT. ALL SAFETY MEASURES IMPLEMENTED. BED IN LOW POSITION. BED WHEELS ON LOCKED AND CALL LIGHT WITHIN REACH.
--- NOTE | 2022-07-25 06:31 | NUR ---
PT BLOOD GLUCOSE 1S 113. NO INSULIN COVERAGE NEEDED. Addendum: 07/25/22 at 0707 by Lindsey Chris RN WRONG PT
--- NOTE | 2022-07-25 07:12 | NUR ---
PT IS STABLE. ENDORSED PT TO THE MORNING SHIFT NURSE FOR CONTINUITY OF CARE.
[2022-07-25 07:29] LABS: ALBUMIN 2.4 g/dL (3.4-5.0); ANION GAP 10.8 (8-16); CARBON DIOXIDE 28.6 mmol/L (21-32); CREATININE 0.8 mg/dL (0.6-1.3); MAGNESIUM 1.4 mg/dL (1.8-2.4); POTASSIUM 3.4 mmol/L (3.5-5.1); TOTAL BILIRUBIN 1.2 mg/dL (0.0-1.0)
[2022-07-25] MEDS ORDERED: CIPR500T4 PO (12:59)
[2022-07-25 14:41] VITALS: BP 111/71
--- NOTE | 2022-07-25 15:32 | NUR ---
PATIENT DISCHARGE WITH A COPY OF DISCHARGE INSTRUCTIONS AND ALL BELONGINGS. INTACT 20 GAUGE INTRAVENOUS CATHETER TIP UPON REMOVAL FROM RIGHT ANTECUBITAL SPACE LEFT. PATIENT FAMILY PRESENT FOR DISCHARGE TO HOME VIA PRIVATE AUTOMOBILE. DISCUSSION ABOUT HEALTHY EATING AND EXERCISE TO REDUCE BODY MASS INDEX. PATIENT AND FAMILY VERBALIZE UNDERSTANDING.
--- NOTE | 2022-07-31 14:24 | NUR ---
FREDERIC GARCIA: CALLED DR THOMAS ARREDONDO OFFICE LOC[facility] [address] [facility] [address] AND SPOKE WITH TIERA AND MADE AN APPOINTMENT FOR 08/01/2022 AT 1500. CALLED PT WITH NO ANSWER SO CALLED STEVEN SAEED AND WAS ABLE TO LEAVE A MESSAGE ABOUT THE ABOVE INFORMATION.
== END 2022-07-25 15:28 | disposition home or self-care (01) ==
LOC: MED 14:46 → OBSVTOIN 19:41 → MMU 19:41
PROVIDERS: ADMIT Hospitalist; ATTEND Hospitalist
DX: K74.60 Unspecified cirrhosis of liver (principal); R18.8 Other ascites; K76.6 Portal hypertension; E44.0 Moderate protein-calorie malnutrition; I10 Essential (primary) hypertension; E11.9 Type 2 diabetes mellitus without complications; K21.9 Gastro-esophageal reflux disease without esophagitis; Z20.822 Contact with and (suspected) exposure to COVID-19; Z68.34 Body mass index [BMI] 34.0-34.9, adult
CPT/HCPCS: 36415; 71046; 76700; 80053; 82140; 82948; 83690; 83735; 83880; 85025; 87081; 99285; J1940; J3475; Q0092

== ENCOUNTER 2022-11-16 13:07 | Inpatient (IN) | payer OTHER ==
[~2022-11-16] VITALS: Ht 157.5 cm; Wt 98.4 kg
[~2022-11-16 13:07] MED LIST changes: +CIPR500T4 PO; -CYCL-711 PO; +FURO-570 PO; -OFLO5SOL27 OT
[2022-11-16 13:29] VITALS: BP 98/70; PULSE 79; RESP 20; TEMP 98.2; O2SAT 97
--- NOTE | 2022-11-16 13:40 | NUR ---
HERE FOR RECTAL BLEED, DENIES ANY PAIN, O2 SAT 98% RA SR UP TIMES 2, AWAIT MD OATES, FAMILY AT BS
[2022-11-16 14:28] LABS: BASOPHILS % (AUTO) 0.2 % (0.0-2.0); EOSINOPHILS # (AUTO) 0.1 K/uL (0-0.4); EOSINOPHILS % (AUTO) 1.7 % (0.0-4.0); HEMOGLOBIN 11.5 g/dL (12.0-16.0); LYMPHOCYTES # (AUTO) 1.3 K/uL (2.5-16.5); LYMPHOCYTES % (AUTO) 23.5 % (20.5-51.1); MEAN CORPUSCULAR HEMOGLOBIN 30 pg (27-31); MEAN CORPUSCULAR HGB CONC 34 g/dL (33-37); MEAN CORPUSCULAR VOLUME 88.3 fL (80-94); MONOCYTES # (AUTO) 0.7 K/uL (0.8-1.0); MONOCYTES % (AUTO) 12.2 % (1.7-9.3); NEUTROPHILS # (AUTO) 3.4 K/uL (1.8-7.7); NEUTROPHILS % (AUTO) 62.4 % (42.2-75.2); PLATELET COUNT (AUTO) 121 K/uL (140-450); RED BLOOD CELL COUNT(AUTO) 3.86 MIL/uL (4.20-5.40); RED CELL DISTRIBUTION WIDTH 19.7 % (11.6-13.7); WHITE BLOOD COUNT (AUTO) 5.4 K/uL (4.8-10.8)
[2022-11-16 15:57] LABS: ALBUMIN 2.2 g/dL (3.4-5.0); ANION GAP 10.9 (8-16); CARBON DIOXIDE 27.2 mmol/L (21-32); CREATININE 0.9 mg/dL (0.6-1.3); POTASSIUM 5.1 mmol/L (3.5-5.1)
[2022-11-16] MEDS ORDERED: PANTOPRAZOLE 40 MG INJ VIAL IVP ONE (16:40)
[2022-11-16] MEDS ORDERED: MAG SULF 2000 MG/WATER PREMIX 50 ML IV PRN (18:40)
[2022-11-16] MEDS ORDERED: POTASSIUM CHLORIDE 10 MEQ TABER PO PRN (18:40)
[2022-11-16] MEDS ORDERED: KCL 20 MEQ IN 100 mL PREMIX 200 ML IV PRN (18:40)
--- NOTE | 2022-11-16 19:00 | NUR ---
Pt sittting in the chair. pt is alert and oriented x4. croatian speaker and walkie talkie.
[2022-11-16] MEDS ORDERED: INSU100V19 SQ (19:26)
[2022-11-16] MEDS ORDERED: cefTRIAXone 1,000 MG VIAL ONE (19:26)
[2022-11-16 19:55] LABS: APPEARANCE,URINE CLEAR (CLEAR); BILIRUBIN,URINE NEGATIVE (NEGATIVE); BLOOD, URINE NEGATIVE (NEGATIVE); COLOR,URINE YELLOW (YELLOW); LEUKOCYTE ESTERASE ,URINE NEGATIVE (NEGATIVE); NITRITE, URINE NEGATIVE (NEGATIVE); UGLUCOSE 3+ (NEGATIVE)
--- NOTE | 2022-11-16 22:00 | NUR ---
daughter at the bedside .
--- NOTE | 2022-11-16 22:30 | NUR ---
Pt asked the nurse if the she can eat anything. Pt is was told to be NPO.
--- NOTE | 2022-11-17 | NUR ---
pt is resting in the bed. no acute distrees noted
--- NOTE | 2022-11-17 04:10 | NUR ---
Pt went to the restroom.
[2022-11-17 07:04] LABS: BASOPHILS % (AUTO) 0.8 % (0.0-2.0); EOSINOPHILS # (AUTO) 0.2 K/uL (0-0.4); EOSINOPHILS % (AUTO) 3.2 % (0.0-4.0); HEMOGLOBIN 10.6 g/dL (12.0-16.0); LYMPHOCYTES # (AUTO) 1.7 K/uL (2.5-16.5); MEAN CORPUSCULAR HEMOGLOBIN 30 pg (27-31); MEAN CORPUSCULAR HGB CONC 34 g/dL (33-37); MONOCYTES # (AUTO) 0.6 K/uL (0.8-1.0); MONOCYTES % (AUTO) 12.9 % (1.7-9.3); NEUTROPHILS # (AUTO) 2.2 K/uL (1.8-7.7); NEUTROPHILS % (AUTO) 47.1 % (42.2-75.2); PLATELET COUNT (AUTO) 112 K/uL (140-450); RED BLOOD CELL COUNT(AUTO) 3.53 MIL/uL (4.20-5.40); RED CELL DISTRIBUTION WIDTH 19.8 % (11.6-13.7); WHITE BLOOD COUNT (AUTO) 4.7 K/uL (4.8-10.8)
--- NOTE | 2022-11-17 07:25 | NUR ---
REPORT RECEIVED FROM ROSA ELENA ROGERS. ASSUMED CARE AT THIS TIME
--- NOTE | 2022-11-17 07:25 | NUR ---
REPORT RECEIVED FROM ROSA ELENA ROGERS. ASSUMED CARE AT THIS TIME
[2022-11-17 07:31] LABS: ALBUMIN 1.9 g/dL (3.4-5.0); ANION GAP 11.8 (8-16); CARBON DIOXIDE 25.2 mmol/L (21-32); CREATININE 0.8 mg/dL (0.6-1.3); MAGNESIUM 1.6 mg/dL (1.8-2.4); PHOSPHORUS 3.5 mg/dL (2.5-4.9); TOTAL BILIRUBIN 1.5 mg/dL (0.0-1.0)
--- NOTE | 2022-11-17 08:00 | NUR ---
Patient will be admitted to care of MD GAINES. Admited to M/S. Will go to room 112A. Belongings list completed. Report to SHAQUILLE EDMOND.
--- NOTE | 2022-11-17 08:09 | NUR ---
Note vida in EDM - 11/17/22 at 0809 by PHSEP Patient will be admitted to care of MD GAINES. Admited to M/S. Will go to room 112A. Belongings list completed. Report to SHAQUILLE EDMOND.
--- NOTE | 2022-11-17 08:14 | NUR ---
The patient's care was reviewed and supervised by ED Agency Nurse 9, RN, RN.
--- NOTE | 2022-11-17 08:30 | NUR ---
RECEIVE ER NURSE ENDORSEMENT THAT PATIENT COME FROM HOME FOR RECTAL BLOOD W/ NAUSEA. PATIENT ADMIT INTO MED/SURG, UNDER DR. GAINES FOR GI BLEED W/ HX OF LIVER CIRRHOSIS, DM, S/P FALL ON L. SIDE OF BODY. PATIENT HAS NKA, IS FULL CODE AND ABLE TO AMBULATORY. ALERT X4, ON ROOM AIR, PIV AT RAC 20G SALINE LOOK. SAMI SPEAKING PATIENT HAS NO ACUTE SKIN ISSUE, VITAL WITHIN PATIENT'S BASELINE (T-P-R: 97.4-78-20, BP:111/58, O2 SAT: 98%). AT THE TIME PATIENT BE ADMISSION, PATIENT WAS NPO EXCEPT MEDS. WILLL CONTINUE TO MONITOR Addendum: 11/17/22 at 1949 by Prerna Peterson RN ENDORSE PATIENT IN STABLE CONDITION TO PM SHIFT NURSE AFTER IV ROCEPHIN GIVE. SON IS AT BED SIDE.
--- NOTE | 2022-11-17 08:58 | NUR ---
PATIENT HAS BEEN SCREENED AND CATEGORIZED MODERATE NUTRITION RISK. PATIENT WILL BE SEEN WITHIN 3-5 DAYS OF ADMISSION. 11/16/22-11/21/[address]
[2022-11-17] MEDS: PANTOPRAZOLE 40 MG INJ VIAL IVP SCH ×2 (09:00→23:29)
[2022-11-17] MEDS: MAGNESIUM OXIDE 400 MG TAB PO PRN (10:01)
[2022-11-17 10:16] VITALS: BP 111/58; PULSE 64; RESP 20; TEMP 97; O2SAT 98
[2022-11-17] MEDS ORDERED: SHARK OIL/PHENYLEPHRINE 60 GM TUBE TP PRN (12:35)
[2022-11-17 13:47] VITALS: PULSE 64; RESP 20; O2SAT 98
[2022-11-17 16:00] VITALS: BP 105/55; PULSE 78; RESP 20; TEMP 97.4; O2SAT 98
[2022-11-17 20:00] VITALS: PULSE 82; RESP 18; O2SAT 98
--- NOTE | 2022-11-17 20:00 | NUR ---
ROUNDS , NO S/SX OF ACUTE DISTRESS NOTED , WILL CONT. TO MONITOR , REMINDS PT THE USE OF CALL LIGHT WHEN SHE NEEDED HELP , EXPLANATION ABOUT THE USE OF CALL LIGHT GIVEN TO PT THRU [employer] CONTINUITY CONSULTANT , WILL CONT. TO MONITOR , ENSURE SAFETY .
[2022-11-18 02:00] VITALS: BP 103/60; PULSE 84; RESP 18; TEMP 98.8; O2SAT 100
--- NOTE | 2022-11-18 02:35 | NUR ---
C/O PAIN - WILL MEDICATE .
--- NOTE | 2022-11-18 02:55 | NUR ---
TJ TAYLOR - DID NOT REPLY , INFORMED CHARGE NURSE SUKH PT'S X RAY OF SHOULDER IS REMARKABLE - WILL PUT PT ON BEDREST FOR AWHILE - THEN PER SUKH ENDORSE THE RESULT OF X RAY OF THE SHOULDER IN THE MORNING . WILL CONT. TO MONITOR . Addendum: 11/18/22 at 0300 by Lilly Hogue RN AT 2220 - I TJ TAYLOR .
--- NOTE | 2022-11-18 03:15 | NUR ---
BP 103/ 60 , VA 84 , RR 18 , 02 SAT 98 - NORCO GIVEN . WILL CONT. TO MONITOR .
[2022-11-18] MEDS: HYDROcodone/APAP 5/325 MG 1 TAB TAB PO PRN (03:16)
--- NOTE | 2022-11-18 06:00 | NUR ---
AAOX4 , BP RE CHECK 92 / 60 , SC 84 , NO ACTIVE BLEEDING NOTED , O2 SAT 100 % , WILL CONT. TO MONITOR
[2022-11-18 06:14] LABS: BASOPHILS % (AUTO) 0.6 % (0.0-2.0); EOSINOPHILS # (AUTO) 0.1 K/uL (0-0.4); EOSINOPHILS % (AUTO) 2.8 % (0.0-4.0); HEMATOCRIT 26.9 % (36-48); HEMOGLOBIN 9.2 g/dL (12.0-16.0); LYMPHOCYTES # (AUTO) 1.6 K/uL (2.5-16.5); LYMPHOCYTES % (AUTO) 31.6 % (20.5-51.1); MEAN CORPUSCULAR HEMOGLOBIN 30 pg (27-31); MEAN CORPUSCULAR HGB CONC 34 g/dL (33-37); MEAN CORPUSCULAR VOLUME 89.4 fL (80-94); MONOCYTES # (AUTO) 0.7 K/uL (0.8-1.0); MONOCYTES % (AUTO) 13.2 % (1.7-9.3); NEUTROPHILS # (AUTO) 2.6 K/uL (1.8-7.7); NEUTROPHILS % (AUTO) 51.8 % (42.2-75.2); PLATELET COUNT (AUTO) 105 K/uL (140-450); RED BLOOD CELL COUNT(AUTO) 3.01 MIL/uL (4.20-5.40)
[2022-11-18 06:23] LABS: ALBUMIN 1.7 g/dL (3.4-5.0); CARBON DIOXIDE 25.1 mmol/L (21-32); CREATININE 0.8 mg/dL (0.6-1.3); MAGNESIUM 1.6 mg/dL (1.8-2.4); POTASSIUM 4.1 mmol/L (3.5-5.1); TOTAL BILIRUBIN 1.2 mg/dL (0.0-1.0)
--- NOTE | 2022-11-18 07:38 | NUR ---
ENDORSED PT AWAKE , ENDORSED PT FOR CONT. OF CARE .
[2022-11-18 08:00] VITALS: BP 90/51; PULSE 75; RESP 19; TEMP 96.8; O2SAT 90
--- NOTE | 2022-11-18 08:37 | NUR ---
DC PLANN[age] YRS OLD FEMALE PATIENT WAS ADMITTED FROM HOME WITH A DX OF GI BLEED. PATIENT HAS A HX OF CIRRHOSIS, DM, HTN, GERD, HYPOTHYROIDISM. CT ABD SHOWED PROCTITIS AND DUODENITIS AND LIVER CIRRHOSIS. XR OF LEFT SHOULDER FRACTURE OF LEFT HUMERAL. CT HEAD NEGATIVE. CONSULTED WITH ORTHO, GI AND PULMO. SEEN BY ORTHO DR MCGEE RECOMMENDED LEFT ARM NON WEIGHT BEARING WITH SLING NO ROM. DR MARTINE SERVIN RECOMMENDED SINCE H/H IS NORMAL TO F/U OUT PATIENT. DC PLAN TO GO HOME WHEN STABLE. CM TO FOLLOW Addendum: 11/20/22 at 0858 by Shefali Silva RN DC PLANNING: PATIENT TRANSFERRED TO ICU DUE TO LOW BP AND ACTIVE RECTAL BLEEDING BLEEDING H/H 5.6/16.9 TRANSFUSED 2 UNIT PRBC H/H 11.0/32.5. CONTINUED IVF, IV ABX ROCEPHIN , IV PROTONIX AND SANDOSTATIN DRIP DC PLAN AWAITING FOR GI INPUT. CM TO FOLLOW Addendum: 11/21/22 at 0918 by Shefali Silva RN DC PLANNING: S/P EGD WITH ESOPHAGEAL BANDING WITH DR FARLEY. RECOMMENDATIONS TO START CLEAR LIQUID DIET AND ADVANCED TOLERATED, F/U UPPER ENDOSCOPY IN 2 WEEKS ALONG WITH SCREENING COLONOSCOPY OUT PT. CONTINUE IVF, IV ABX ROCEPHIN AND ON LEVOPHED DRIP FOR LOW BP. DC PLAN TO GO HOME WHEN STABLE. CM TO FOLLOW Addendum: 11/25/22 at 1152 by Shefali Silva RN DC PLANNING: PATIENT INTUBATED ON 11/23 AT 1500 FOR WORSENING RESPIRATORY DISTRESS. DR FARLEY SEEN PATIENT S/P EGD WITH 6 BANDING. PROGNOSIS POOR WBC 0.6 PLATELETS 16 AND H/H 8.4/25.4 TRANSFUSED 2 BAGS OF PLATELETS. ON LEVOPHED, PRECEDEX, VASOPRESSIN AND NAHO2 DRIPS. CM SPOKE WITH 2 SON'S AND DAUGHTER, DISCUSSED THE CODE STATUS, PER FAMILY AWAITING FOR THE OLDER BROTHER TO COME TO THE [place] AND HELP THEM WITH THE DECISION MAKING PROCESS. FAMILY REQUESTING A LETTER TO THE [place] [employer] TO ASSIST TO GET VISA. CM PROVIDE THE LETTER TO THE FAMILY. DC PLAN AWAITING FOR FAMILY DECISION. Addendum: 11/28/22 at 1243 by Shefali Silva RN DC PLANNING: EMILIA SPIKE WITH THE SON ARMINDA AND DARLIN DISCUSSED THE FINAL DECISION PER ARMINDA FAMILY DON'T WANT TO CHANGE THE CODE STATUS AND WANTED TO HAVE A SECOND OPINION AND REQUEST PT TO BE TRANSFERRED TO [facility]. CM EXPLAINED THE PROCESS AND THE POSSIBLE OUTCOME. ARMINDA STATED ALL THE DR'S EXPLAINED CLINICAL CONDITIONS, ALL FAMILY UNDERSTOOD THE POOR PROGNOSIS BUT STILL WANTED EVERY THING TO BE DONE AND CM ASKED THEM TO TRY ANOTHER HOSPITAL TOO BUT PER ARMINDA TO TRY [address] [place] [address], NO FOR [facility] AND [facility] FOR THEM. FAXED TO [facility] . CM TO FOLLOW Addendum: 11/28/22 at 1409 by Shefali Silva RN DC PLANNING: CALLED [facility] SPOKE WITH MANUEL STATED DECLINED PATIENT BECAUSE OF NOT STABLE FOR TRANSFER AND HAS NO ICU BED. NOTIFIED PATIENT'S SON DARLIN. CM TO FOLLOW
--- NOTE | 2022-11-18 09:23 | NUR ---
[facility] REFERRAL RECEIVED FOR [facility] X3 DAYS ON 11/18/22, PATIENT WILL BE SEEN WITHIN 1-2 DAYS OF REFERRAL.
[2022-11-18] MEDS: PANTOPRAZOLE 40 MG INJ VIAL IVP SCH ×2 (09:25→23:07)
[2022-11-18] MEDS: MAGNESIUM OXIDE 400 MG TAB PO PRN (09:26)
[2022-11-18 13:00] VITALS: PULSE 75; RESP 19; O2SAT 90
--- NOTE | 2022-11-18 14:16 | NUR ---
11/18/22 RD INITIAL ASSESSMENT COMPLETED PLEASE REFER TO NUTRITION ASSESSMENT UNDER CARE ACTIVITY FOR ESTIMATED NUTRITIONAL NEEDS. 1. CONTINUE CLEAR LIQUID DIET TOLERATED AND ADVANCE TO FULL LIQUID DIET ONCE MEDICALLY APPROPRIATE. RD RECOMMEN[facility] IF TEXTURES AND GI FUNCTION IS NORMAL AND IF MEDICALLY APPROPRIATE. 2. RD ENCOURAGES PATIENT TO FOLLOW DIABETIC DIET ONCE SHE LEAVES THE HOSPITAL BASED ON THE EDUCATION GIVEN IN HANDOUTS. 3. RD TO FOLLOW-UP 7 DAYS, LOW RISK PAT LEUNG RD
[2022-11-18 16:00] VITALS: BP 110/59; PULSE 85; RESP 19; TEMP 97.1; O2SAT 98
--- NOTE | 2022-11-18 19:58 | NUR ---
ENDORSE PATIENT TO PM SHIFT NURSE IN STABLE CONDITION THAT ON-CALL MD, DR. KIRBY AWARE THAT PATIENT HAD FALL IN HOME AND FRACTURE HER L. SHOULD/HUMERAL. SLING ORDERED FOR SUPPORT AND DR. SALGADO IS ON CONSULT TEAM FOR FRACTURE
[2022-11-18 20:00] VITALS: PULSE 86; RESP 18; O2SAT 90
--- NOTE | 2022-11-18 20:00 | NUR ---
PUT PT'S LEFT ARM ON SLING - NON BEARING WT - EXPLAINED TO THE PT THE IMPORTANCE OF WEARING ARM SLING AT ALL TIMES . PT'S VERBALIZED UNDERSTANDING
--- NOTE | 2022-11-18 22:08 | NUR ---
sitting on the edge of the bed , - per pt she wants to use the rest room , assess pt per pt she has no dizziness , assisting pt to the rest room , no occurence of diziness , until i put pt on the bed , pt asking for iced water - will provide , ensure pt's safety , call light within reach . will cont. to monitor
--- NOTE | 2022-11-18 23:18 | NUR ---
PT C/O DIZINESS , PER PT SHE HAS ON AND OFF DIZINESS IN THE PAST FEW DAYS , BUT 30 MINS.AGO THE DIZINESS BECOMES THE WORST , IT BOTHERS HER A LOT - BP 107 / 59 , VT 92 , RR 18 , O2 SAT 99 % - WILL REFER TO DR. KIRBY , CHARGE NURSE DEBI GODINEZ .
[2022-11-18] MEDS ORDERED: KETOROLAC 15 MG/ML VIAL IVP ONE (23:25)
--- NOTE | 2022-11-18 23:42 | NUR ---
TORADOL ALREADY VERIFIED BY PHARMACIST - WILL GIVE ONCE PT . COME BACK FROM RADIOLOGY DEPT . Addendum: 11/19/22 at 0753 by Lilly Hogue RN AT 0200 PUT PT. ON [employer] .
[2022-11-19] VITALS (11 sets, daily range): BP systolic 72–131; BP diastolic 42–69; PULSE 90–106; RESP 15–18; TEMP 96.5–98.5; O2SAT 90–100
--- NOTE | 2022-11-19 02:00 | NUR ---
SLEEPING , BUT EASILY AWAKEABLE BY SOUNDS AND SLEEP , WILL CONT. MONITOR . NO COMPLAIN OF DIZINESS AT THIS TIME .
--- NOTE | 2022-11-19 04:00 | NUR ---
SLEEPING , BUT EASILY AROUSABLE BY SOUNDS AND SLEEP , NO S/SX OF ACUTE DISTRESS NOTED .
--- NOTE | 2022-11-19 06:30 | NUR ---
PT ASSISTED TO THE BATHROOM - PT HAS BM MOD. IN [place] W/ BLOOD STREAK OF FRESH BLOOD - WILL CONT. TO MONITOR , FOR CBC THIS AM .
[2022-11-19 07:03] LABS: ALBUMIN 1.7 g/dL (3.4-5.0); ANION GAP 10.5 (8-16); CARBON DIOXIDE 25.3 mmol/L (21-32); CREATININE 0.9 mg/dL (0.6-1.3); MAGNESIUM 1.5 mg/dL (1.8-2.4); PHOSPHORUS 3.6 mg/dL (2.5-4.9); POTASSIUM 4.8 mmol/L (3.5-5.1); TOTAL BILIRUBIN 1.3 mg/dL (0.0-1.0)
[2022-11-19 07:04] LABS: BASOPHILS % (AUTO) 0.3 % (0.0-2.0); EOSINOPHILS % (AUTO) 0.6 % (0.0-4.0); HEMATOCRIT 22.1 % (36-48); HEMOGLOBIN 7.4 g/dL (12.0-16.0); LYMPHOCYTES # (AUTO) 1.5 K/uL (2.5-16.5); MEAN CORPUSCULAR HEMOGLOBIN 30 pg (27-31); MEAN CORPUSCULAR HGB CONC 34 g/dL (33-37); MEAN CORPUSCULAR VOLUME 90.6 fL (80-94); MONOCYTES # (AUTO) 0.8 K/uL (0.8-1.0); MONOCYTES % (AUTO) 10.5 % (1.7-9.3); NEUTROPHILS # (AUTO) 5.5 K/uL (1.8-7.7); NEUTROPHILS % (AUTO) 69.6 % (42.2-75.2); PLATELET COUNT (AUTO) 119 K/uL (140-450); RED BLOOD CELL COUNT(AUTO) 2.44 MIL/uL (4.20-5.40); RED CELL DISTRIBUTION WIDTH 19.9 % (11.6-13.7); WHITE BLOOD COUNT (AUTO) 7.9 K/uL (4.8-10.8)
--- NOTE | 2022-11-19 07:33 | NUR ---
PT AWAKE , ENDORSED PT FOR CONT. OF CARE ENDORSED SUE TATUM TO FF UP THE RESULT OF CBC - RC ROGERS VERBALIZES UNDERSTANDING .
--- NOTE | 2022-11-19 08:00 | NUR ---
REVIEWED AND DISCUSSED PT PLAN OF CARE WITH PRIMARY NEUROSCIENCE SPECIALISTMalini TATUM.
--- NOTE | 2022-11-19 08:51 | NUR ---
DR. KIRBY CAME INFORMED OF PT. CBC & BMP RESULTS.
[2022-11-19] MEDS: ONDANSETRON 4 MG/2 ML VIAL IVP PRN (08:57)
[2022-11-19] MEDS: PANTOPRAZOLE 40 MG INJ VIAL IVP SCH (08:57)
--- NOTE | 2022-11-19 08:57 | NUR ---
PT ENDORSED LIGHTHEADEDNESS AND DIZZINESS AND ASKED TO CHECK HER BLOOD SUGAR. ATTEMPTED TO ASSIST PT TO RESTROOM, PT UNABLE TO SIT UP. PT PLACED BACK ON PUREWICK AND BEDPAN.
[2022-11-19] MEDS ORDERED: MECLIZINE 25 MG TAB PO PRN (09:05)
--- NOTE | 2022-11-19 09:05 | NUR ---
NOTIFIED PRIMARY EMERGENCY COMMUNICATIONS DISPATCHERMalini TATUM AND DR. KIRBY ABOUT PT'S INCREASED WEAKNESS, DIZZINESS, AND REQUEST FOR BLOOD SUAGR CHECK. AC/HS ACCUCHECKS WITH INSULIN SLIDING SCALE AND PRN MECLIZINE ORDERED.
--- NOTE | 2022-11-19 09:10 | NUR ---
BLOOD SUGAR CHECK PER DR. KIRBY ORDER. BS [address] KIRBY WHO WAS AT THE NURSE STATION AT THIS TIME AND ORDERED TO GIVE INSULIN COVERAGE.
[2022-11-19] MEDS: BLOOD GLUCOSE MONITORING 1 DEV DEV FS SCH ×3 (09:45→21:05)
[2022-11-19] MEDS: INSULIN LISPRO SLIDING SCALE 100 UNITS/ML VIAL SUBQ PRN ×3 (09:46→21:09)
--- NOTE | 2022-11-19 14:00 | NUR ---
BP 78/37, HR 97, RESP 16, TEMP 97.1, 02 SAT 97% ON O2 AT 2L/MIN VIA NC. INFORMED REVA ALMONTE WHO'S COVERING FOR IV. INITIAL NS BOLUS GIVEN PER MD ORDER. REMAINED WITH PT. AND CONTINUE TO MONITOR. INFORMED STONECUTTER ENRIQUE ALMONTE
--- NOTE | 2022-11-19 14:12 | NUR ---
CALLED RAPID RESPONSE DUE TO PT. VOMITING BLOOD (1 LITER) AND NOT STABLE CONDITION. DR. KIRBY MADE AWARE. INFORMED PORCELAIN TECHNICIAN ENRIQUE ALMONTE
[2022-11-19] MEDS ORDERED: NACL 0.9% 500 ML IV SCH (14:16)
--- NOTE | 2022-11-19 14:18 | NUR ---
BLOOD SUGAR CHECKED 450. CALLED DR. KIRBY AND ORDERED TO GIVE LISPRO INSULIN COVERAGE ACCORDING TO SLIDING SCALE WHICH WAS 10 UNITS SUB-Q.
--- NOTE | 2022-11-19 14:28 | NUR ---
TRANSFER TO ICU VIA GURNEY WITH ASSISTANCE FROM WORSHIP LEADER ENRIQUE ALMONTE PER DR. MIRTA JUNG.
--- NOTE | 2022-11-19 14:37 | NUR ---
Received report from Telemetry nurse SUE Maza. Patient transferred to ICU due to GROUNDS AND NURSERY SPECIALIST.
[2022-11-19 14:56] LABS: BASOPHILS % (AUTO) 0.5 % (0.0-2.0); EOSINOPHILS % (AUTO) 0.3 % (0.0-4.0); LYMPHOCYTES # (AUTO) 1.8 K/uL (2.5-16.5); LYMPHOCYTES % (AUTO) 18.7 % (20.5-51.1); MEAN CORPUSCULAR HEMOGLOBIN 31 pg (27-31); MEAN CORPUSCULAR HGB CONC 33 g/dL (33-37); MONOCYTES % (AUTO) 9.9 % (1.7-9.3); NEUTROPHILS # (AUTO) 6.9 K/uL (1.8-7.7); NEUTROPHILS % (AUTO) 70.6 % (42.2-75.2); PLATELET COUNT (AUTO) 110 K/uL (140-450); RED BLOOD CELL COUNT(AUTO) 1.81 MIL/uL (4.20-5.40); RED CELL DISTRIBUTION WIDTH 19.6 % (11.6-13.7); WHITE BLOOD COUNT (AUTO) 9.8 K/uL (4.8-10.8)
--- NOTE | 2022-11-19 14:57 | NUR ---
Page out to Dr. Junior, spoke with exchange.
--- NOTE | 2022-11-19 15:00 | NUR ---
status update: assessed patient at bedside. Patient AOx4. Patient has right 22G IV with no infiltration or redness noted. Currently has a arm sling on her left arm due to humeral head fracture. Left upper extremity has multiple bruising. skin is intact. No acute distress or SOB noted. Will continue to follow plan of care.
[2022-11-19 15:14] LABS: HEMATOCRIT 16.9 % (36-48); HEMOGLOBIN 5.6 g/dL (12.0-16.0)
--- NOTE | 2022-11-19 15:16 | NUR ---
CALLED DAVID BLANCAS -PT. DAUGHTER AT LEFT MESSAGE AND CALL BACK NUMBER REGARDING PT. TRANSFER TO ICU.
[2022-11-19] MEDS ORDERED: NACL 0.9% 1,000 ML IV SCH (15:30)
[2022-11-19] MEDS: PANTOPRAZOLE 80 MG in NACL 0.9% 100 ML IVP SCH (15:41)
[2022-11-19] MEDS ORDERED: CALCIUM GLUC 1 GM/50 mL NS BAG 50 ML IV SCH ×2 (15:45→16:15)
--- NOTE | 2022-11-19 15:49 | NUR ---
Patient informed about picc line all questions answered. Patient signed consent. Will continue to follow plan of care.
[2022-11-19] MEDS: DEXT 5% /NACL 0.9% 1,000 ML IV SCH (15:52)
--- NOTE | 2022-11-19 16:00 | NUR ---
CALLED DAVID BLANCAS AT FOR SECOND TIME, LEFT MESSAGE AND CALL NUMBER REGARDING PT. TRANSFER TO ICU.
--- NOTE | 2022-11-19 16:18 | NUR ---
CALLED [facility] -RN AT EXT #[phone] AND INFORMED THAT PT. DAUGHTER WAS CONTACTED 2X REGARDING TRANSFER TO ICU AND NO RESPONSE RECEIVED YET. ENDORSED TO FOLLOW UP.
--- NOTE | 2022-11-19 16:43 | NUR ---
PHYSICAL THERAPY NOTE ATTEMPTED TO SEE PATIENT FOR PT EVALUATION HOWEVER PATIENT NOT APPROPRIATE AT THIS TIME. HAD A RAPID RESPONSE AND WAS TRANSFERRED TO ICU. LOW HEMOGLOBIN AT THIS TIME. WILL FOLLOW UP TOMORROW IF APPROPRIATE. RN AGREEABLE
[2022-11-19] MEDS ORDERED: OCTREOTIDE ACETATE 1.25 MG in NACL 0.9% 250 ML IV SCH (17:00)
--- NOTE | 2022-11-19 17:00 | NUR ---
Initiated blood transfusion verified with second RN. Blood consent signed and placed in chart. Will continue to follow plan of care.
--- NOTE | 2022-11-19 17:15 | NUR ---
Status update: No s/sx of blood transfusion reaction visible on patient 15 min after beginning transfusion. No acute distress or shortness of breath noted. VSS. Will continue to follow plan of care.
--- NOTE | 2022-11-19 19:15 | NUR ---
Endorsed report to shift supervisor melting nurse SUE Vernon. for continuity of care.
--- NOTE | 2022-11-19 20:00 | NUR ---
RECEIVED PT IN BED ALERT AND ORIENTED FROM DAY SHIFT NURSE JAMES. PT EYES PERRLA AND TRACKING. NO S/S OF DISTRESS. NO SOB. LUNG SOUNDS CLEAR TO AUSCULTATION AND ON 2L/MIN OF O2 VIA NASAL CANULA. HEART RATE >100 SINUS TACHYCARDIA. PT WITH A BROKEN LEFT ARM IN SLING, AND BRUISES ON LOWER EXTREMITIES BILATERALLY. PT FINISHED THE FIRST UNIT OF BLOOD TRANSFUSION WITHOUT ADVERSE EFFECTS. NORMAL BOWEL SOUNDS WITH CONCERN OF GI-BLEEDING. BED AT LOWEST POSITION, CALL LIGHTS WITHIN REACH, AND SIDE RAILS UP TO PREVENT FALL. STANDARD PRECAUTION ENFORCED. CONTINUE TO MONITOR AND NOTIFY MD IF THERE ARE CHANGES.
--- NOTE | 2022-11-19 20:47 | NUR ---
PAGED DR. FARLEY REGARDING EGD. FAMILY MEMBER STATED THEY DID NOT KNOW ABOUT THE PROCEED AND WOULD LIKE TO SPEAK TO THE DR BEFORE THEY SIGN THE CONSENT AND PROCEED WITH THE PROCEDURE. AWAITING MD RESPONSE.
--- NOTE | 2022-11-19 22:05 | NUR ---
STARTED SWENSON INSERTION PER MD BERNABE FOR MONITOR OF I/O
[2022-11-20] VITALS (26 sets, daily range): BP systolic 87–155; BP diastolic 42–89; PULSE 87–131; RESP 13–25; TEMP 96.4–98.6; O2SAT 22–100
[2022-11-20] MEDS: PANTOPRAZOLE 80 MG in NACL 0.9% 100 ML IVP SCH ×2 (01:00→08:13)
--- NOTE | 2022-11-20 02:20 | NUR ---
PT COMPLETED 3 UNITS OF BLOOD TRANSFUSION WITHOUT ANY ADVERSE EFFECTS. CONTINUE TO MONITOR
[2022-11-20] MEDS: DEXT 5% /NACL 0.9% 1,000 ML IV SCH (02:23)
--- NOTE | 2022-11-20 05:36 | NUR ---
DR FARLEY CALLED TO FOLLOW UP ON PT STATUS. REPORTED TO MD PT CONDITION. NOTIFIED MD REGARDING THE UPCOMING PROCEDURE. MD STATED HE WILL PERFORM UPPER ENDOSCOPY AROUND 1300 TODAY. HE ALSO WILL SPEAK TO FAMILY MEMBER OF PT AND GET THE CONSENT SIGNED WELL. CONTINUE TO MONITOR PT AND NOTIFY MD IF THERE ARE CHANGES
[2022-11-20 05:40] LABS: BASOPHILS # (AUTO) 0.1 K/uL (0.00-0.22); BASOPHILS % (AUTO) 0.4 % (0.0-2.0); EOSINOPHILS # (AUTO) 0.1 K/uL (0-0.4); EOSINOPHILS % (AUTO) 0.4 % (0.0-4.0); HEMATOCRIT 32.5 % (36-48); LYMPHOCYTES # (AUTO) 2.1 K/uL (2.5-16.5); LYMPHOCYTES % (AUTO) 14.3 % (20.5-51.1); MEAN CORPUSCULAR HEMOGLOBIN 30 pg (27-31); MEAN CORPUSCULAR HGB CONC 34 g/dL (33-37); MEAN CORPUSCULAR VOLUME 89.2 fL (80-94); MONOCYTES # (AUTO) 2.1 K/uL (0.8-1.0); MONOCYTES % (AUTO) 14.1 % (1.7-9.3); NEUTROPHILS # (AUTO) 10.4 K/uL (1.8-7.7); NEUTROPHILS % (AUTO) 70.8 % (42.2-75.2); PLATELET COUNT (AUTO) 114 K/uL (140-450); RED BLOOD CELL COUNT(AUTO) 3.64 MIL/uL (4.20-5.40); RED CELL DISTRIBUTION WIDTH 17.4 % (11.6-13.7); WHITE BLOOD COUNT (AUTO) 14.7 K/uL (4.8-10.8)
[2022-11-20 05:52] LABS: ANION GAP 11.9 (8-16); CARBON DIOXIDE 24.6 mmol/L (21-32); MAGNESIUM 1.9 mg/dL (1.8-2.4); PHOSPHORUS 3.4 mg/dL (2.5-4.9); POTASSIUM 4.5 mmol/L (3.5-5.1); TOTAL BILIRUBIN 2.7 mg/dL (0.0-1.0)
--- NOTE | 2022-11-20 07:30 | NUR ---
RECIVED REPORT TO NICOLE ROGERS DAY SHIFT PT IS AOX4 PT IS VERBALLY RESPONSIVE NO SOB PT IS ST ON THE HEART MONITOR V/S 98.6, 109, 110/44 BP, RR44, O2SAT 100% ON 2 LMP NC. PT ABLE TO MOVE ALL EXTREMITIES EXCEPT THE LEFT UPPER ARM WITH ARM SLING PT ADMIT FOR GI BLEED NO S/SX OF BLEEDING NOTED. PT HAS F/C INTACT PATENT DRAINING YELLOW URINE KEEP PT SAFE AND COMFORTABLE CLOSELY MONITORING IN PROGRESS. BLOOD SUGAR CHECK DONE CEB=[id number] KIRBY WITH NEW ORDER GIVEN TO GIVE 12 UNIT OF HUMALOG INSULIN COVERAGE AND CHANGE THE IVF RATE OF [id number] 75 DONE.
--- NOTE | 2022-11-20 08:13 | NUR ---
PT. MADI WITH LOW TERELL SCALE AT MODERATE TO HIGH RISK, CONTINUE TO FOLLOW PRESSURE INJURY PREVENTION INTERVENTIONS. -POSITIONING: TURN AND REPOSITION PATIENT Q 2H OR SOONER USE PILLOWS TO KEEP BONY PROMINENCES FROM DIRECT CONTACT WITH SURFACES USE REPOSITIONING WEDGES TO PROVIDE 30-DEGREE ANGLE FOR SIDE LYING POSITIONS OFFLOADING OR FOAM DRESSING TO ALL TUBING TO PREVENT MEDICAL DEVICES RELATED PRESSURE INJURY -RE-EVALUATING AND MANAGING INCONTINENCE MONITOR SKIN CONDITION DURING POSITION CHANGE DO NOT MASSAGE REDNESS, BONY PROMINENCES FREQUENT KEIRY-CARE AND PROVIDE BARRIER CREAMS PRN IF SOILING MOISTURE CONTROL BY OFFER BED POST/URINAL /ABSORBENT PAD TO WICK AND HOLD MOISTURE KEEP SKIN DRY AND PROTECT FROM FRICTION -MANAGE FRICTION/SHEAR/MOBILITY KEEP HOB AT THE LOWEST LEVEL OF ELEVATION NO MORE THAN 30 DEGREE UNLESS OTHERWISE CONTRAINDICATED USE LIFT SHEET OR TRANSFER DEVICE TO MOVE PATIENT AND PREVENT LATERAL SHEER. PROTECT HEELS, ELBOWS BONY PROMINENCES WITH SKIN BERRIES OR FOAM DRESSING IF EXPOSED TO FRICTION OFFLOAD BILATERAL HEELS BY PLACING PILLOWS UNDER CALVES AT ALL TIMES, UNLESS OTHERWISE CONTRAINDICATED -PRESSURE REDISTRIBUTION SURFACE THERAPY SATURNINO ISOFLEX MATTRESS -NUTRITION: PLEASE FOLLOW RD RECOMMENDATIONS AND OFFER NUTRITION SUPPLEMENTS IF ORDERED. PLEASE CONTACT WOUND CARE NURSE FOR ANY QUESTION AND CHANGE OF WOUND CONDITION.
--- NOTE | 2022-11-20 08:22 | NUR ---
DR. KIRBY CAME IN AND SEE PT TODAY. Addendum: 11/20/22 at 0918 by MARIA ANTONIA NAVARRETE RN ASSESS PT AND DISCUSSED PLAN OF CARE PT VERBALIZED UNDERSTANDING QUESTIONS ANSWERED. NEW ORDER NPO EXCEPT MEDS ORDERED.
[2022-11-20] MEDS: BLOOD GLUCOSE MONITORING 1 DEV DEV FS SCH ×4 (08:27→20:52)
[2022-11-20] MEDS ORDERED: INSULIN LISPRO 100 UNITS/ML VIAL SUBQ SCH (08:31)
[2022-11-20] MEDS: ONDANSETRON 4 MG/2 ML VIAL IVP PRN (09:08)
[2022-11-20] MEDS: HYDROcodone/APAP 5/325 MG 1 TAB TAB PO PRN (09:12)
--- NOTE | 2022-11-20 10:00 | NUR ---
DR. BERNABE CAME IN AND SEE PT GET UPDATE AWARE OF EPISODE OF BLEEDING BRIGHT RED VOMIT AND TARRY BLACK STOOL SOFT SMALL AMOUNT AWARE PT WILL HAVE EGD SCHEDULED AT 1PM.
[2022-11-20] MEDS: INSULIN LISPRO SLIDING SCALE 100 UNITS/ML VIAL SUBQ PRN ×3 (12:11→20:56)
[2022-11-20] MEDS ORDERED: MIDAZOLAM 2 MG/2 ML VIAL ONE ×2 (12:11)
[2022-11-20] MEDS ORDERED: fentaNYL citrate 0.05 MG/ML VIAL ONE (12:12)
--- NOTE | 2022-11-20 13:19 | NUR ---
PICC LINE NURSE4 AT BEDSIDE FOR INSERTION OF PICC LINE USE PICC URSE BENCH REPAIR TECHNICIAN SERVICE TO EXPLAINED PROCEDURE ALL QUESTIONS ASKED AND VERBALIZED UNDERSTANDING.
--- NOTE | 2022-11-20 13:25 | NUR ---
PHYSICAL THERAPY NOTE: ATTEMPTED TO SEE PATIENT FOR PHYSICAL THERAPY EVALUATION HOWEVER PATIENT CURRENTLY GETTING LINE PLACED BY RN WITH A SCHEDULED FOLLOW UP EGD PROCEDURE. WILL FOLLOW UP TOMORROW IF APPROPRIATE. LIME PULLER AGREEABLE.
--- NOTE | 2022-11-20 14:00 | NUR ---
PT HAS TIM PICC LINE TOLERATED INSRTION WELL, XRAY WAS DONE TO CHECK FOR PLACEMENT.
--- NOTE | 2022-11-20 14:06 | NUR ---
DR. FARLEY CAME IN AND SEE PT FOR THE EGD PROCEDURE, OR TEAM CAME IN AND TRANSPORT PT TO OR FOR THE SCHEDULE EGD PT VS/ WNL NO SIGN OF DISTRESS NO C/O PAIN PT IS COOPERATIVE
[2022-11-20] MEDS ORDERED: MIDAZOLAM 2 MG/2 ML VIAL IVP ONE (14:40)
[2022-11-20] MEDS ORDERED: fentaNYL citrate 0.05 MG/ML VIAL IVP ONE (14:40)
--- NOTE | 2022-11-20 14:43 | NUR ---
PT BACK TO ICU 5 WITH OR STAFF. PT IS SLEEPING, MUMBLING. 2L O2 VIA NASAL CANNULA. TACHYCARDIC AT 133, OTHERWISE VSS. BED IN LOW AND LOCKED POSITION, CALL LIGHT WITHIN REACH.
--- NOTE | 2022-11-20 19:18 | NUR ---
ENDORSED TO AWAIS ROGERS AND NIKHIL EM RN OUTSIDE SALES CONSULTANT PT VS WNL NO DISTRESS NO C/O PAIN NO EPISODE OF BLEEDING NOTED PT IS SLEEPING LOW BED AND LOCKED MAKE COMFORTABLE.
--- NOTE | 2022-11-20 20:00 | NUR ---
RECEIVED REPORT FROM [facility] NURSE MARIA ANTONIA ROGERS. PT IS AOX4 PT IS VERBALLY RESPONSIVE. NO RESPIRATORY DISTRESS NOTED. PT IS ST ON THE TOP HAT BODY MAKER V/S 97.1, HR 111, BP 90/59, RR 14, O2SAT 100% ON 2 LPM NC. PT ABLE TO MOVE ALL EXTREMITIES EXCEPT FOR THE LEFT UPPER ARM WITH ARM SLING. PT HAS A TIM PICC BUT [facility] NURSE REPORTED THAT CHEST X-RAY RESULT SHOWED THAT THE RIGHT PERIPHERALLY PICC LINE TIP PROJECTED TO THE RIGHT ATRIUM AND TO CONSIDER PULLBACK 1-2 CM FOR MORE OPTIMAL POSITIONING. PT HAS FC INTACT PATENT DRAINING YELLOW URINE. KEEP PT SAFE AND COMFORTABLE. WILL CLOSELY CONTINUE TO MONITOR PT.
[2022-11-21] VITALS (26 sets, daily range): BP systolic 81–159; BP diastolic 43–116; PULSE 54–152; RESP 11–29; TEMP 97.4–98.5; O2SAT 95–99
[2022-11-21] MEDS: HYDROcodone/APAP 5/325 MG 1 TAB TAB PO PRN ×2 (01:55→08:13)
--- NOTE | 2022-11-21 02:21 | NUR ---
NOTED BM 2X BLACK TARRY STOOL WITH FRESH BLOOD MODERATE AMOUNT. INFORMED DR. CRISTOBAL FARLEY.
[2022-11-21] MEDS ORDERED: NOREPINEPHRINE 4 MG/4 ML VIAL IV ONE (03:56)
--- NOTE | 2022-11-21 04:00 | NUR ---
DECREASED BP IS NOTED 83/44. INFORMED CHARGE NURSE.
--- NOTE | 2022-11-21 04:15 | NUR ---
2 CONSECUTIVE READING LOW BP NOTED LATEST .
[2022-11-21] MEDS: NOREPINEPHRINE 4 MG in DEXTROSE 5% 250 ML IV PRN ×5 (04:18→17:13)
--- NOTE | 2022-11-21 04:40 | NUR ---
PT BP 74/42. STARTED LEVOPHED AT 4 MCG/MIN PRN MEDS.
[2022-11-21 05:13] LABS: BASOPHILS % (AUTO) 0.2 % (0.0-2.0); EOSINOPHILS % (AUTO) 0.1 % (0.0-4.0); HEMATOCRIT 27.2 % (36-48); HEMOGLOBIN 9.2 g/dL (12.0-16.0); LYMPHOCYTES # (AUTO) 1.6 K/uL (2.5-16.5); LYMPHOCYTES % (AUTO) 24.3 % (20.5-51.1); MEAN CORPUSCULAR HEMOGLOBIN 31 pg (27-31); MEAN CORPUSCULAR HGB CONC 34 g/dL (33-37); MEAN CORPUSCULAR VOLUME 90.9 fL (80-94); MONOCYTES # (AUTO) 0.4 K/uL (0.8-1.0); MONOCYTES % (AUTO) 5.2 % (1.7-9.3); NEUTROPHILS # (AUTO) 4.8 K/uL (1.8-7.7); NEUTROPHILS % (AUTO) 70.2 % (42.2-75.2); PLATELET COUNT (AUTO) 114 K/uL (140-450); RED CELL DISTRIBUTION WIDTH 17.8 % (11.6-13.7); WHITE BLOOD COUNT (AUTO) 6.8 K/uL (4.8-10.8)
[2022-11-21 05:26] LABS: ALBUMIN 1.7 g/dL (3.4-5.0); ANION GAP 13.8 (8-16); CARBON DIOXIDE 21.7 mmol/L (21-32); CREATININE 1.3 mg/dL (0.6-1.3); MAGNESIUM 1.8 mg/dL (1.8-2.4); POTASSIUM 5.5 mmol/L (3.5-5.1); TOTAL BILIRUBIN 1.6 mg/dL (0.0-1.0)
--- NOTE | 2022-11-21 05:28 | NUR ---
RECEIVED PHONE CALL FROM THE LAB REGARDING CRITICAL RESULT, GLUCOSE = 432; ASKED IF THERE WERE ANY OTHER CRITICAL LABS AND PER Yanely Dolan, WAS INFORMED THAT THERE WAS NOT. CHECKED EMR FOR ALL LAB RESULTS WBC = 6.8, YESTERDAY WBC WAS 14.7 HGB = 9.2, YESTERDAY HGB WAS 11.0 HCT= 27.2 SODIUM = 132 POTASSIUM = 5.5
--- NOTE | 2022-11-21 05:55 | NUR ---
PHONE CALL PLACED TO [facility] FOR ON-CALL MD. TJ WAY WHO STATES ON-CALL PROVIDER IS DR. HOWE. MESSAGE LEFT FOR PROVIDER TO CALL BACK REGARDING CRITICAL LABS, RECTAL BLEEDING, HYPOTENSION AND STARTING LEVOPHED.
--- NOTE | 2022-11-21 05:58 | NUR ---
MESSAGE SENT TO PICC RN REGARDING POSITION OF PICC WHICH PER RADIOLOGIST: TIP IS AT THE RIGHT ATRIUM AND NEEDS TO BE PULLED BACK AT LEAST 1-2 CM FOR MORE OPTIMAL POSITIONING.
[2022-11-21] MEDS: BLOOD GLUCOSE MONITORING 1 DEV DEV FS SCH ×9 (06:41→23:00)
--- NOTE | 2022-11-21 06:43 | NUR ---
MESSAGE SENT TO DR. HOWE DUE TO NO CALL BACK REGARDING CRITICAL LABS (GLUCOSE), RECTAL BLEEDING, HYPOTENSION, AND STARTING LEVOPHED.
--- NOTE | 2022-11-21 06:51 | NUR ---
PAGED DR. VAZQUEZ TO REPORT PT. CONDITION, LAB RESULT, LOW BP
--- NOTE | 2022-11-21 06:57 | NUR ---
DR. VAZQUEZ RETURNED PAGE WITH ORDERS; STAT NS 100 MLS/HR, BLOOD CULTURE, CMP, CALCIUM, LACTIC ACID TEST, CEFTRIAXONE 1GM IV FIRST DOSE. FOR REPEAT LABS OF CBC, CMP, CALCIUM AT 0200. PROCALCITONIN WAS ORDERED ALSO BUT CANNOT BE FOUND IN THE SYSTEM - CHARGE NURSE JULIANE ROGERS CALLED THE DATA SPECIALIST AND SPOKE TO ESPERANZA AND INFORMED HIM ABOUT THE PROCALCITONIN TEST. WAVE SOLDERING MACHINE OPERATOR INFORMED THAT PROCALCITONIN TEST IS DONE OUTSIDE (SEND OUT) AND MIGHT TAKE 5 DAYS FOR THE RESULT. WAVE SOLDERING MACHINE OPERATOR SAID THEY WILL PUT THE ORDER IN THE SYSTEM.
[2022-11-21] MEDS: INSULIN LISPRO SLIDING SCALE 100 UNITS/ML VIAL SUBQ PRN (07:16)
--- NOTE | 2022-11-21 07:30 | NUR ---
RECIVED REPORT TO AWAIS ROGERS AND NIKHIL EM RN DAY SHIFT PT IS AOX4 PT IS VERBALLY RESPONSIVE NO SOB PT IS ST ON THE HEART MONITOR V/S 97.9, 124 HR, 99/75 BP, RR26, O2SAT 100% ON 2 LMP NC. PT ABLE TO MOVE ALL EXTREMITIES EXCEPT THE LEFT UPPER ARM WITH ARM SLING PT ADMIT FOR GI BLEED S/P EGD YESTERDAY WITH EPISODE OB LOWER GI BLEED BLACK TARRY STOOL X2 HGB TODAY IS 9.2 , PER REPORT OF DAY SHIFT PT HAS EPISODE OF LOW BP STARTED ON LEOPHED DRIP AT 18 MCG . PT HAS F/C INTACT PATENT DRAINING JACE URINE KEEP PT SAFE AND COMFORTABLE CLOSELY MONITORING IN PROGRESS. BLOOD SUGAR CHECK DONE BY SENIOR ADVISOR WX=495 THEY GAVE 10 U PT HAS TIM PICC NEED TO ADJUST BY XRAY RECS. PICC NURSE WAS CALLED WILL FOLLOW UP. PT CULVER SAFE AND COMFORTABLE WILL CLOSELY MONITOR. Addendum: 11/21/22 at 1024 by MARIA ANTONIA NAVARRETE RN ADDITONAL PER RESPORT FROM DAY SHIFT NURSE DR GARCIA IS AWARE ON LAB RESULT TODAY WITH REPEAT LABS AT 2PM AND NEW ORDERS WAS PLACED BY SENIOR ADVISOR NURSE.
--- NOTE | 2022-11-21 07:35 | NUR ---
ENDORSED PT TO DAYSHIFT NURSE MARIA ANTONIA RN AND ANDRE RN. ALL QUESTIONS ANSWERED.
[2022-11-21] MEDS: NACL 0.9% 1,000 ML IV SCH ×2 (08:18→17:05)
--- NOTE | 2022-11-21 08:38 | NUR ---
DR KIRBY CAME IN AND SEE PT ASSESS PT GET UPDATE REPORT PT HAS STILL HIGH BLOOD SUGAR SINCE YESTERDAY IN >350S AFTER IVF OF D5NS WAS D/C TODAY BS IN THE AM IS 410 PT HAS A CLEAR LIQUID DIET STARTED DINNER, WITH NEW ORDER GIVEN FOR BS ALSO MADE AWARE OF EPISODE OF LOWER GIB AND HGB LEVEL TODAY AND C/O OF ABDOMINAL ORDER TO CALL DR MARTINE SERVIN WILL FOLLOW UP. Addendum: 11/21/22 at 0926 by MARIA ANTONIA NAVARRETE RN ADDTIONAL REPOSRT WAS GIVEN LATEST LACTIC 6.2 md WAS AWARE NO NEW ORDER.
--- NOTE | 2022-11-21 08:53 | NUR ---
NOTIFIED DR. KIRBY OF POC BLOOD GLUCOSE 419. ORDERS RECEIVED FOR 12 UNITS LISPRO TO BE GIVEN NOW.
[2022-11-21] MEDS ORDERED: INSULIN LANTUS 100 UNITS/ML 10 ML VIAL SUBQ SCH ×2 (09:00→16:00)
[2022-11-21] MEDS ORDERED: PANTOPRAZOLE 40 MG TABEC PO SCH (09:00)
[2022-11-21] MEDS ORDERED: INSULIN LISPRO 100 UNITS/ML VIAL SUBQ SCH ×2 (09:00→12:37)
--- NOTE | 2022-11-21 09:16 | NUR ---
CLARIFY WITH DR KIRBY REGARDING ORDER TO GIVE LISPRO 12 U MADE AWARE PT HAS 10 UNIT LISPRO GIVEN AT 0700 BY STUDENT ASSISTANCE COUNSELOR FOR BS 410 PER MD NEVER MIND THE NEW ORDER TO JUST GIVE THE LANTUS 20U.
--- NOTE | 2022-11-21 11:19 | NUR ---
DR BERNABE CAME IN AND SEE PT MADE UPDATE ON PT CONDITION AWARE OF HR SR-ST HIGHEST IS 130S PT IS NO C/O OF CHEST PAIN NO SOB FREQUENT C/O PAIN IN LEFT SHOULDER AT 0800 GAVE PAIN MEDS PT RIGHT NOW IS SLEEPING PT ON LEVOPHED DRIP AND EPISODE OF LOWER GIB NO NEW ORDER GIVEN KATRIN CLOSELY MONITOR.
[2022-11-21] MEDS ORDERED: PHENYLEPHRINE 10 MG in NACL 0.9% 250 ML IV PRN (11:20)
[2022-11-21] MEDS ORDERED: ACETAMINOPHEN 325 MG TAB PO PRN (11:25)
--- NOTE | 2022-11-21 12:00 | NUR ---
DAVID DAUGHTER CAM IN AND SEE PT GET UPDATE AWARE OF PT CONDITION AND LABS AND BLOOD SUGAR LEVEL AND PLAN OF CARE AND DOCTORS ARE AWARE AND SEEN PATIENT TODAY AND PUT NEW ORDERS IN USED [facility] SERVICE ALL QUESTIONS ANSWERED VERBALIZED UNDERSTANDING.
[2022-11-21] MEDS: SODIUM ZIRCONIUM CYCLOSILICATE 10 GM POWD.PACK PO SCH ×2 (13:00→21:00)
--- NOTE | 2022-11-21 13:05 | NUR ---
AROUND 1200 blood sugar check done pt POC BS IS [address] KIRBY GIVE ORDER FOR 12 U LISPRO AND ALSO MADE AWARE PT IS SLEEPY AND CONFUSED WITH ORDER TO CHECK AMMONIA LEVEL TODAY AT 2PM WITH THE REPEAT LABS CT
[2022-11-21 14:40] LABS: BASOPHILS % (AUTO) 0.1 % (0.0-2.0); EOSINOPHILS % (AUTO) 0.1 % (0.0-4.0); HEMATOCRIT 24.8 % (36-48); HEMOGLOBIN 8.2 g/dL (12.0-16.0); LYMPHOCYTES # (AUTO) 1.2 K/uL (2.5-16.5); LYMPHOCYTES % (AUTO) 18.3 % (20.5-51.1); MEAN CORPUSCULAR HEMOGLOBIN 30 pg (27-31); MEAN CORPUSCULAR HGB CONC 33 g/dL (33-37); MEAN CORPUSCULAR VOLUME 91.5 fL (80-94); MONOCYTES # (AUTO) 0.2 K/uL (0.8-1.0); MONOCYTES % (AUTO) 3.4 % (1.7-9.3); NEUTROPHILS # (AUTO) 4.9 K/uL (1.8-7.7); NEUTROPHILS % (AUTO) 78.1 % (42.2-75.2); PLATELET COUNT (AUTO) 120 K/uL (140-450); RED BLOOD CELL COUNT(AUTO) 2.71 MIL/uL (4.20-5.40); RED CELL DISTRIBUTION WIDTH 18.6 % (11.6-13.7); WHITE BLOOD COUNT (AUTO) 6.3 K/uL (4.8-10.8)
[2022-11-21 15:10] LABS: ALBUMIN 1.5 g/dL (3.4-5.0); CARBON DIOXIDE 16.9 mmol/L (21-32); CREATININE 1.8 mg/dL (0.6-1.3); POTASSIUM 4.9 mmol/L (3.5-5.1); TOTAL BILIRUBIN 1.3 mg/dL (0.0-1.0)
--- NOTE | 2022-11-21 15:46 | NUR ---
CALLED DR. KIRBY FFOR CRITICAL; LABS HGB OF 8.2 GLUCOSE 482, LACTIC 8.3 AND MMONIA 127, NEW ORDER GIVEN PLACED PT ON ISULIN DRIP AND 300 ML LACTULOSE TO BE GIVEN RECTALLY PT IS CONFUSED AND SLEEPY
[2022-11-21] MEDS ORDERED: INSULIN REGULAR, HUMAN 100 UNIT in NACL 0.9% 100 ML IV SCH ×2 (15:50)
[2022-11-21] MEDS ORDERED: LACTULOSE 20 GM/30 ML UDC PR SCH ×2 (16:30→21:00)
[2022-11-21] MEDS ORDERED: NACL 0.9% IV ONE (17:50)
[2022-11-21] MEDS ORDERED: PHYTONADIONE IV ONE (17:50)
--- NOTE | 2022-11-21 17:50 | NUR ---
dR GREEN[place]OD CALLED BACK REGARDING PT EPSIODE OG LOWER GIB NEW ORDER GIVEN TO START PATIENT ON OCREOTIDE 25 MCG, 1 UNIT PRCB, VIT K 1 GM IV PLACED .
[2022-11-21] MEDS ORDERED: PHYTONADIONE 10 MG in NACL 0.9% 50 ML IV SCH (18:30)
[2022-11-21] MEDS: OCTREOTIDE ACETATE 1.25 MG in NACL 0.9% 250 ML IV SCH (18:32)
--- NOTE | 2022-11-21 19:05 | NUR ---
185 STARTED BLOOD TRANSFUSION, PT AFEBRILE 1904 NO S/S OF TRANSFUSION RXN SON AT BEDSIDE
--- NOTE | 2022-11-21 19:28 | NUR ---
REPORT GIVEN TO AWAIS ROGERS AND NIKHIL EM RN FOR CONTINUITY OF CARE. PT ON BLOOD TRANSFUSION, OCREOTIDE DRIP, INSULIN DRIP, VIT K IV. AND IVF NS, KEPT SAFE AND COMFORTBALE
--- NOTE | 2022-11-21 19:30 | NUR ---
RECEIVED REPORT FROM MARIA ANTONIA RN AND ANDRE RN DAY SHIFT NURSES. PT IS AWAKE BUT SLIGHTLY AGITATED AND RESTLESS. PRESENTING V/S 97.4, 144 HR, 102/76 BP, RR15, O2SAT 100% ON 2 LMP NC. PT ABLE TO MOVE ALL EXTREMITIES EXCEPT THE LEFT UPPER ARM WITH ARM SLING PT ADMIT FOR GI BLEED WITH EPISODE OF LOWER GI BLEED BLACK TARRY STOOL. WITH TIM PICC LINE FLOWING ARE FOLLOWS: LEVOPHED AT 16 MCG/MIN, INSULIN DRIP AT 0.1IU.KG.HR, OCTEOTRIDE AT 25MCG/HR, BLOOD TRANSFUSION AT 200 ML/HR. PT HAS F/C INTACT PATENT DRAINING JACE URINE KEEP PT SAFE AND COMFORTABLE CLOSELY MONITORING IN PROGRESS. PT KEEP SAFE AND COMFORTABLE WILL CLOSELY MONITOR.
[2022-11-21] MEDS ORDERED: LACTULOSE 20 GM/30 ML UDC PO SCH (21:00)
--- NOTE | 2022-11-21 21:25 | NUR ---
CALL PLACED TO [facility] TO REQUEST CALL BACK FROM RACE BOARD ATTENDANT. INFORMED THAT DR. BERNABE WOULD BE CALLING BACK
[2022-11-21] MEDS ORDERED: KETOROLAC 15 MG/ML VIAL IVP STA (21:28)
--- NOTE | 2022-11-21 21:28 | NUR ---
CALL RECEIVED FROM DR. BERNABE, PROVIDED STATUS UPDATE THAT PATIENT IS YELLING OUT IN PAIN. PROVIDED UPDATE ON RENAL FUNCTION NEW ORDERS RECEIVED: -TORADOL 15MG x1 NOW -MORPHINE 2MG Q4 PRN PAIN ADDED NEW ORDERS TO PATIENT'S EMR
[2022-11-21] MEDS ORDERED: KETOROLAC 15 MG/ML VIAL ONE (21:30)
[2022-11-21] MEDS: MORPHINE SULFATE 2 MG/ML SYR IVP PRN (22:50)
[2022-11-22] VITALS (26 sets, daily range): BP systolic 73–129; BP diastolic 40–82; PULSE 93–145; RESP 11–18; TEMP 96–98; O2SAT 92–98
[2022-11-22] MEDS: BLOOD GLUCOSE MONITORING 1 DEV DEV FS SCH ×12 (00:33→20:00)
--- NOTE | 2022-11-22 02:52 | NUR ---
CALL PLACED TO [facility], SPOKE WITH ERIC AND REQUESTED THAT DR. BERNABE IS PAGED. PATIENT HAS BEEN SCREAMING, MOANING, AND IS RESTLESS AND AGITATED DESPITE MEDICATIONS GIVEN EARLIER DURING THE SHIFT. PATIENT IS NOW TRYING TURNING SIDEWAYS IN THE BED, AND IS PULLING AT PERIHERAL IV SITE
--- NOTE | 2022-11-22 02:54 | NUR ---
RECEIVED CALL BACK FROM DR. BERNABE, NEW ORDER FOR PRECEDEX RECEIVED.
[2022-11-22] MEDS ORDERED: DEXMEDETOMIDINE HCL 400 MCG in NACL 0.9% 96 ML IV PRN (03:00)
[2022-11-22] MEDS ORDERED: DEXMEDETOMIDINE HCL 100 MCG/ML 2 ML VIAL IV ONE (03:08)
[2022-11-22] MEDS ORDERED: NOREPINEPHRINE 4 MG/4 ML VIAL IV ONE (03:09)
[2022-11-22] MEDS: SODIUM ZIRCONIUM CYCLOSILICATE 10 GM POWD.PACK PO SCH (05:00)
[2022-11-22 05:24] LABS: BASOPHILS % (AUTO) 0.4 % (0.0-2.0); EOSINOPHILS % (AUTO) 0.2 % (0.0-4.0); HEMATOCRIT 25.2 % (36-48); HEMOGLOBIN 8.5 g/dL (12.0-16.0); LYMPHOCYTES # (AUTO) 0.8 K/uL (2.5-16.5); LYMPHOCYTES % (AUTO) 21.9 % (20.5-51.1); MEAN CORPUSCULAR HEMOGLOBIN 30 pg (27-31); MEAN CORPUSCULAR HGB CONC 34 g/dL (33-37); MEAN CORPUSCULAR VOLUME 88.4 fL (80-94); MONOCYTES # (AUTO) 0.1 K/uL (0.8-1.0); NEUTROPHILS # (AUTO) 2.7 K/uL (1.8-7.7); NEUTROPHILS % (AUTO) 75.5 % (42.2-75.2); PLATELET COUNT (AUTO) 69 K/uL (140-450); RED BLOOD CELL COUNT(AUTO) 2.85 MIL/uL (4.20-5.40); RED CELL DISTRIBUTION WIDTH 18.8 % (11.6-13.7); WHITE BLOOD COUNT (AUTO) 3.6 K/uL (4.8-10.8)
[2022-11-22 05:46] LABS: ALBUMIN 1.4 g/dL (3.4-5.0); ANION GAP 17.6 (8-16); CARBON DIOXIDE 16.1 mmol/L (21-32); CREATININE 1.9 mg/dL (0.6-1.3); MAGNESIUM 1.6 mg/dL (1.8-2.4); POTASSIUM 3.7 mmol/L (3.5-5.1); TOTAL BILIRUBIN 2.2 mg/dL (0.0-1.0)
[2022-11-22] MEDS: NACL 0.9% 1,000 ML IV SCH (05:53)
[2022-11-22] MEDS: NOREPINEPHRINE 4 MG in DEXTROSE 5% 250 ML IV PRN (06:57)
--- NOTE | 2022-11-22 07:05 | NUR ---
SPOKE TO DR. FARLEY AND INFORMED THE DOCTOR ABOUT THE PT BOWEL DARK COLORED TARRY BLACK NO FRESH BLOOD NOTED. INFORM THE DR ABOUT THE AGITATION AND RESTLESSNESS DURING THE SHIFT. HE ORDERED REPEAT CBC AT 1200.
[2022-11-22] MEDS: DEXMEDETOMIDINE HCL 400 MCG in NACL 0.9% 96 ML IV PRN (07:30)
--- NOTE | 2022-11-22 07:33 | NUR ---
ENDORSED PT TO DAYSHIFT NURSE RN. ALL QUESTIONS ANSWERED
--- NOTE | 2022-11-22 07:35 | NUR ---
Opening Received report on pt. Pt sedated with precedex drip, arousable to noxious stimuli, does not follow commands, on room air. On levophed drip and IVF to TIM PICC. Vogel in place draining urine to gravity. Bilateral soft wrist restraints in place for safety.
--- NOTE | 2022-11-22 07:40 | NUR ---
Pt noted with left arm out of sling with restraint. Removed restraint and placed back in sling. Pulse present, noted non pitting edema. Elevated extremity with pillow.
[2022-11-22] MEDS: NOREPINEPHRINE 16 MG in DEXTROSE 5% 250 ML IV PRN ×2 (07:56→23:48)
--- NOTE | 2022-11-22 08:08 | NUR ---
Dr. Fine at bedside with pt and pt's son Chapincito updating with plan of care.
[2022-11-22] MEDS ORDERED: LACTULOSE 20 GM/30 ML UDC PR SCH ×2 (09:00)
[2022-11-22] MEDS: INSULIN LANTUS 100 UNITS/ML 10 ML VIAL SUBQ SCH (09:00)
[2022-11-22] MEDS ORDERED: INSULIN LANTUS 100 UNITS/ML 10 ML VIAL SUBQ SCH (09:00)
[2022-11-22] MEDS: PANTOPRAZOLE 40 MG INJ VIAL IVP SCH ×2 (09:24→21:10)
[2022-11-22] MEDS: DEXT 5% / NACL 0.45% 1,000 ML IV SCH ×2 (09:26→22:30)
--- NOTE | 2022-11-22 10:00 | NUR ---
Pt calm on precedex drip, arousable, equal chest rise and fall, in no signs of distress on room air. Removed and discontinued restraints from pt.
--- NOTE | 2022-11-22 10:13 | NUR ---
PT NOTE; DID NOT GET RN CLEARANCE DUE TO EXACERBATION OF GI BLEED Addendum: 11/22/22 at 1014 by Elvin Mason PT RN AGREEABLE. WILL FOLLOW UP NEXT VISIT
--- NOTE | 2022-11-22 10:15 | NUR ---
Pt noted with moderate amount dark output from rectum. Perform zuleyma care and linen change. Administered lactulose retention enema per MD order.
[2022-11-22 11:45] LABS: HEMATOCRIT 26.8 % (36-48); HEMOGLOBIN 9.2 g/dL (12.0-16.0); MEAN CORPUSCULAR HEMOGLOBIN 30 pg (27-31); MEAN CORPUSCULAR HGB CONC 34 g/dL (33-37); MEAN CORPUSCULAR VOLUME 86.5 fL (80-94); PLATELET COUNT (AUTO) 57 K/uL (140-450); RED CELL DISTRIBUTION WIDTH 18.4 % (11.6-13.7); WHITE BLOOD COUNT (AUTO) 3.7 K/uL (4.8-10.8)
--- NOTE | 2022-11-22 11:45 | NUR ---
Dr. Junior at bedside with pt and pt's son Chapincito. Dr. Junior informed Chapincito regarding prognosis and discussing code status with family members.
[2022-11-22 12:15] LABS: BASOPHILS % (MANUAL) 0 % (0-2); BLASTS, MANUAL % 0 % (0-0); EOSINOPHILS % (MANUAL) 0 % (0-4); LYMPHOCYTES % (MANUAL) 8 % (20-46); METAMYELOCYTES % 0 % (0-0); MONOCYTES % (MANUAL) 2 % (5-12); MYELOCYTES % 0 % (0-0); OTHER CELLS,MANUAL % 0 (0-0); PROMYELOCYTES % 0 % (0-0)
--- NOTE | 2022-11-22 12:15 | NUR ---
Pt noted with large amount of dark, bloody output with either clots or BM after retention enema administration. Perform zuleyma care and linen change. Pt also noted more alert and moaning during zuleyma care but remains confused and does not follow commands. Pt remains sedated with precedex.
[2022-11-22 12:18] LABS: CORRECTED WHITE BLOOD COUNT 2.7 K/uL (4.5-11.0)
--- NOTE | 2022-11-22 12:27 | NUR ---
Ordained Minister FOREIGN EXCHANGE DEALER met with pts. son in ICU as pt. was sleeping. middle card tender. stated pt. would not be able to participate. Son, John Ardon sated pt. resides with oldest child, Dahiana Coronel and Dahiana's listed on face sheet. Both work outside of the home during the day. As per John the plan is pt would return home, but no one would be at home assisting pt. during the day. FOREIGN EXCHANGE DEALER asked son to work with siblings to come up with a plan to have assistance for pt during work hours. Son stated he is homeless and sleeps in his care. FOREIGN EXCHANGE DEALER provided him with homeless resources and encouraged him for find work . FOREIGN EXCHANGE DEALER completed the discharge planning assessment.
--- NOTE | 2022-11-22 13:40 | NUR ---
Dr. Cannon rounding on pt and speaking with pt's family members at bedside. Informed Dr. Cannon regarding pt's stool from enema and platelet count. No new orders per Dr. Cannon.
--- NOTE | 2022-11-22 13:46 | NUR ---
11/22/22 RD FOLLOW UP COMPLETED PLEASE REFER TO NUTRITION ASSESSMENT UNDER CARE ACTIVITY FOR ESTIMATED NUTRITIONAL NEEDS. 1.RD RECOMMENDS CONTINUING CCHO 60 GRAMS WITH CLEAR LIQUID DIET. 2. RD TO FOLLOW-UP 3-5 DAYS, MODERATE RISK PAT LEUNG RD
[2022-11-22] MEDS: INSULIN LISPRO SLIDING SCALE 100 UNITS/ML VIAL SUBQ PRN ×2 (16:10→22:25)
--- NOTE | 2022-11-22 17:00 | NUR ---
Pt noted with black/maroon liquid stool. Perform zuleyma care and linen change.
[2022-11-22] MEDS: OCTREOTIDE ACETATE 1.25 MG in NACL 0.9% 250 ML IV SCH (18:23)
--- NOTE | 2022-11-22 19:04 | NUR ---
Closing Pt sedated with precedex drip, arousable, equal chest rise and fall, does not follow commands. Remains on sandostatin and levophed drips and IV fluids. Endorsed plan of care to RN.
--- NOTE | 2022-11-22 19:20 | NUR ---
RECEIVED REPORT FROM [facility] NURSEEVA RN. ALL CARES ASSUMED. RECEIVED ON BED, IN SEMI-SOARES'S POSITION WITH SIDE RAILS RAISED UP. PT IS SEDATED, AROUSABLE TO MODERATE STIMULI WITHOUT SPONTANEOUS EYE OPENING. ON ROOM AIR AT 98% O2SAT, NOT IN DISTRESS. ON SINUS TACHYCARDIA ON SUPPLY CHAIN SPECIALIST. AFEBRILE. WITH RIGHT UPPER PICC LINE- DRY AND INTACT - WITH FLOWING D5 0.45NS AT 75 ML/HR, LEVOPHED AT 18 MCG/MIN, SANDOSTATIN AT 25 MCG/HR, PRECEDEX AT 0.2 MCG/KG/HR - PATENT. WITH ANOTHER IV ACCESS OVER RIGHT ANTECUBITAL G22 - NON-INTACT AND LEAKING. WITH LEFT ARM SLING WITH ECCHYMOSIS FROM PREVIOUS HISTORY OF FALL. WITH SWENSON CATHETER DRAINING TO GRAVITY. SCD IN PLACE. SAFETY PRECAUTIONS IN PLACE AND MAINTAINED. WILL MONITOR PT CLOSELY.
[2022-11-22] MEDS: LACTULOSE PR SCH (21:11)
--- NOTE | 2022-11-22 22:00 | NUR ---
BLACK TARRY BOWEL MOVEMENT OBSERVED POST ENEMA. CLEANED AND PERINEAL CARE PROVIDED.
--- NOTE | 2022-11-22 22:00 | NUR ---
PT IS AGITATED AND MOANING. INCREASED PRECEDEX DRIP TO 0.3 MCG/KG/HR. KEPT MONITORED
[2022-11-23] VITALS (31 sets, daily range): BP systolic 78–135; BP diastolic 45–89; PULSE 114–146; RESP 14–32; TEMP 97.8–100.1; O2SAT 82–100
[2022-11-23] MEDS: BLOOD GLUCOSE MONITORING 1 DEV DEV FS SCH ×6 (00:05→20:00)
[2022-11-23] MEDS: DEXMEDETOMIDINE HCL 400 MCG in NACL 0.9% 96 ML IV PRN ×2 (00:05→11:06)
[2022-11-23] MEDS: INSULIN LISPRO SLIDING SCALE 100 UNITS/ML VIAL SUBQ PRN ×5 (00:08→21:34)
[2022-11-23] MEDS: MORPHINE SULFATE 2 MG/ML SYR IVP PRN ×2 (00:24→12:34)
--- NOTE | 2022-11-23 00:29 | NUR ---
OBSERVED PRESENCE OF PAIN. FLACC 6 WITH INCREASED TACHYCARDIA. MORPHINE IV GIVEN AND PRECEDEX INCREASED TO O.4.
[2022-11-23 05:24] LABS: BASOPHILS % (AUTO) 0.1 % (0.0-2.0); EOSINOPHILS # (AUTO) 0.1 K/uL (0-0.4); EOSINOPHILS % (AUTO) 1.1 % (0.0-4.0); HEMATOCRIT 25.6 % (36-48); HEMOGLOBIN 8.5 g/dL (12.0-16.0); LYMPHOCYTES # (AUTO) 0.5 K/uL (2.5-16.5); LYMPHOCYTES % (AUTO) 8.4 % (20.5-51.1); MEAN CORPUSCULAR HEMOGLOBIN 30 pg (27-31); MEAN CORPUSCULAR HGB CONC 33 g/dL (33-37); MEAN CORPUSCULAR VOLUME 88.9 fL (80-94); MONOCYTES # (AUTO) 0.1 K/uL (0.8-1.0); MONOCYTES % (AUTO) 2.6 % (1.7-9.3); NEUTROPHILS % (AUTO) 87.8 % (42.2-75.2); PLATELET COUNT (AUTO) 43 K/uL (140-450); RED BLOOD CELL COUNT(AUTO) 2.87 MIL/uL (4.20-5.40); RED CELL DISTRIBUTION WIDTH 19.2 % (11.6-13.7); WHITE BLOOD COUNT (AUTO) 5.6 K/uL (4.8-10.8)
[2022-11-23 05:30] LABS: ALBUMIN 1.3 g/dL (3.4-5.0); ANION GAP 16.7 (8-16); CARBON DIOXIDE 16.8 mmol/L (21-32); CREATININE 1.7 mg/dL (0.6-1.3); MAGNESIUM 1.6 mg/dL (1.8-2.4); POTASSIUM 4.5 mmol/L (3.5-5.1); TOTAL BILIRUBIN 2.6 mg/dL (0.0-1.0)
--- NOTE | 2022-11-23 07:00 | NUR ---
PT SLEEPING WELL. STILL ON SINUS TACHYCARDIA. NORMOTENSIVE AND AFEBRILE. 3 BOWEL MOVEMENTS NOTED THE ENTIRE SHIFT. PRESENCE OF PAIN OBSERVED ONCE. BED BATH PROVIDED AND LINENS CHANGED. [facility] SUE VELASQUEZ. ALL QUESTIONS ANSWERED.
--- NOTE | 2022-11-23 07:20 | NUR ---
Opening Received report on pt. Pt asleep, arousable, equal chest rise and fall, in no signs of pain or distress on room air. Pt sedated with precedex drip, also on levophed and sandostatin drips, and IVF. Left arm with sling, pulses present. Pt moans, unable to follow commands. Vogel in place draining urine to gravity.
[2022-11-23] MEDS: PANTOPRAZOLE 40 MG INJ VIAL IVP SCH ×2 (08:30→20:25)
[2022-11-23] MEDS: INSULIN LANTUS 100 UNITS/ML 10 ML VIAL SUBQ SCH (08:33)
[2022-11-23] MEDS: LACTULOSE PR SCH ×2 (10:05→20:24)
--- NOTE | 2022-11-23 10:45 | NUR ---
Dr. Fine rounding on pt and speaking with pt's son Chapincito and daughter Dahiana at bedside.
[2022-11-23] MEDS: DEXT 5% / NACL 0.45% 1,000 ML IV SCH (11:03)
[2022-11-23] MEDS ORDERED: TPN PER PHARMACY MC PRN (11:10)
--- NOTE | 2022-11-23 12:50 | NUR ---
Called to pt.'s room by Celi ROGERS. Pt. with increased work of breathing with tachyapnea rate 24-26 bpm. with SpO2 about 85-87%. Pt. placed on non-rebreather mask and respiratory therapist called to evaluate pt. Pt.'s son and daughter at bedside.
--- NOTE | 2022-11-23 12:59 | NUR ---
Pt noted with increased work of breathing despite titration of precedex and administration of morphine. Placed pt on nonrebreather mask. Pt able to achieve saturation to 95% but still has labored breathing. Family at bedside and informed regarding situation. Pt is full code. Addendum: 11/23/22 at 1303 by Agency Nurse 22, RN RN Pt HR 130s, remains on levophed drip and precedex.
--- NOTE | 2022-11-23 13:00 | NUR ---
WHEN ARRIVED TO ICU PT PRESENTED IN DISTRESS/TACHYPNEIC/SOB, PT ON NRB SPO2 88%. PT PLACED ON BIPAP 12/5, R10 AND FIO2 60%. BIPAP PLUGGED INTO RED OUTLET WITH ALARMS ON AND FUNCTIONING. MADE AWARE. WILL CONTINUE TO MONITOR.
--- NOTE | 2022-11-23 13:10 | NUR ---
Respiratory Therapist at pt.'s bedside placing pt. on Bi-Pap. Called Dr. Headley covering for Dr. Junior ([facility] [phone]). Report and explanation of events given to MD. Dr. Headley ordered stat chest x-ray, ABG, and to place pt. on Bi-PaP for now. Pt. will be closely monitored. Dr. Headley states that he will come and see pt. in about 30 min. Pt.'s primary RN at bedside.
[2022-11-23] MEDS ORDERED: SODIUM BICARBONATE 8.4% PFS 50 MEQ/50 ML SYR IVP SCH (13:51)
[2022-11-23 14:22] LABS: HEMATOCRIT 24.9 % (36-48); HEMOGLOBIN 8.2 g/dL (12.0-16.0)
[2022-11-23 14:23] LABS: BASOPHILS % (AUTO) 0.1 % (0.0-2.0); LYMPHOCYTES # (AUTO) 0.3 K/uL (2.5-16.5); MEAN CORPUSCULAR HEMOGLOBIN 29 pg (27-31); MEAN CORPUSCULAR HGB CONC 33 g/dL (33-37); MEAN CORPUSCULAR VOLUME 89.5 fL (80-94); MONOCYTES % (AUTO) 2.9 % (1.7-9.3); NEUTROPHILS # (AUTO) 0.3 K/uL (1.8-7.7); RED BLOOD CELL COUNT(AUTO) 2.79 MIL/uL (4.20-5.40); RED CELL DISTRIBUTION WIDTH 19.9 % (11.6-13.7)
[2022-11-23 14:40] LABS: ANION GAP 20.5 (8-16); CARBON DIOXIDE 16.7 mmol/L (21-32); CREATININE 1.8 mg/dL (0.6-1.3); POTASSIUM 4.2 mmol/L (3.5-5.1)
[2022-11-23] MEDS ORDERED: ETOMIDATE 20 MG/10 ML VIAL IVP ONE (14:55)
--- NOTE | 2022-11-23 14:59 | NUR ---
Pt intubated by Dr. Headley, succinylcholine and etomidate given per MD order. Pt resumed on precedex drip as ordered by Dr. Headley.
--- NOTE | 2022-11-23 14:59 | NUR ---
PT INTUBATED BY . ETT 7.5 SECURED @ 22 TEETH/GUM. BILATERAL BREATH SOUNDS AND YELLOW COLOR CHANGE ON CO2 DETECTOR. WILL CONFIRM WITH CXR.
--- NOTE | 2022-11-23 15:02 | NUR ---
PT PLACED ON VENTILATOR SETTINGS PER , AC/VC 24, VT 400, PEEP 5 AND TITRATE FIO2 . VENT IS PLUGGED INTO A RED OUTLET WITH ALARMS ON AND FUNCTIONING.
--- NOTE | 2022-11-23 15:11 | NUR ---
Lab called and reported pt.'s WBC = 0.6. Result read back and confirmed. Dr. Headley notified via text and orders received for pt. to be placed on NEUTROPENIC precautions per protocol. Sign placed on pt.'s door and instructions to be followed, all staff notified in ICU.
[2022-11-23 15:20] LABS: PLATELET COUNT (AUTO) 17 K/uL (140-450); WHITE BLOOD COUNT (AUTO) 0.6 K/uL (4.8-10.8)
[2022-11-23] MEDS ORDERED: SUCCINYLCHOLINE CHLORIDE 200 MG/10 ML VIAL IVP ONE (15:20)
--- NOTE | 2022-11-23 15:35 | NUR ---
Lab reported Platelets = 17, Number read back to lab and confirmed. Dr. Headley notified via text. NO new orders as of now.
[2022-11-23] MEDS: MEROPENEM 1,000 MG in NACL 0.9% 50 ML IV SCH ×2 (15:38→20:22)
[2022-11-23] MEDS: ALBUMIN HUMAN 25% 100 ML IV SCH ×2 (15:38→17:34)
--- NOTE | 2022-11-23 16:00 | NUR ---
Lab reported LACTIC ACID level 11.9, number repeated back to lab for confirmation. Lab confirmed number reported. Dr. Headley notified of lactic acid level. MD ordered all other IV fluids stopped and to being infusing Bicarb Drip, 3 amps of bicarb in D5W at 75 cc/hr Orders received and followed.
[2022-11-23] MEDS: NOREPINEPHRINE 16 MG in DEXTROSE 5% 250 ML IV PRN (16:06)
[2022-11-23] MEDS: OCTREOTIDE ACETATE 1.25 MG in NACL 0.9% 250 ML IV SCH (17:35)
--- NOTE | 2022-11-23 17:54 | NUR ---
MULTIPLE UNSUCCESSFUL ATTEMPTS TO OBTAIN ABG BY MYSELF AND RT JUDITH, NURSE AND PHYSICIAN MADE AWARE.
[2022-11-23] MEDS: SODIUM BICARBONATE 8.4% 150 MEQ in DEXTROSE 5% 1,000 ML IV SCH (18:00)
[2022-11-23] MEDS ORDERED: VASOPRESSIN 20 UNITS/ML VIAL ONE (18:10)
[2022-11-23] MEDS: VASOPRESSIN 20 UNITS in NACL 0.9% 250 ML IV SCH (18:15)
--- NOTE | 2022-11-23 18:15 | NUR ---
Pt noted with decreased blood pressure, started vasopressin drip as ordered by MD. Pt's family also at bedside and updated.
[2022-11-23 18:43] LABS: EOSINOPHILS # (AUTO) 0.1 K/uL (0-0.4); EOSINOPHILS % (AUTO) 2.7 % (0.0-4.0); HEMATOCRIT 24.7 % (36-48); HEMOGLOBIN 8.1 g/dL (12.0-16.0); LYMPHOCYTES # (AUTO) 0.4 K/uL (2.5-16.5); LYMPHOCYTES % (AUTO) 14.8 % (20.5-51.1); MEAN CORPUSCULAR HEMOGLOBIN 29 pg (27-31); MEAN CORPUSCULAR HGB CONC 33 g/dL (33-37); MEAN CORPUSCULAR VOLUME 89.3 fL (80-94); MONOCYTES % (AUTO) 0.7 % (1.7-9.3); NEUTROPHILS # (AUTO) 2.1 K/uL (1.8-7.7); NEUTROPHILS % (AUTO) 81.8 % (42.2-75.2); RED BLOOD CELL COUNT(AUTO) 2.76 MIL/uL (4.20-5.40); RED CELL DISTRIBUTION WIDTH 20.3 % (11.6-13.7); WHITE BLOOD COUNT (AUTO) 2.5 K/uL (4.8-10.8)
[2022-11-23] MEDS ORDERED: SODIUM BICARBONATE 8.4% PFS 50 MEQ/50 ML SYR IVP ONE ×2 (18:44→18:57)
--- NOTE | 2022-11-23 19:05 | NUR ---
Lab Called with following lab results: Lactic Acid 13.8, WBC 2.5 (pt. already on Neutropenic precautions), Platelets 16, Hemoglobin 8.1. Dr. Headley made aware of all lab results. NO new orders received. Pt. remains in critical state, staff occupational therapist closely following pt.
--- NOTE | 2022-11-23 19:30 | NUR ---
Closing Pt intubated and sedated with precedex drip. Pt also on levophed, vasopressin, sodium bicarb, sandostatin drips. Pt received albumin as ordered. Lab redraw resulted and endorsed to mine shifter RN. Endorsed plan of care to RN. Addendum: 11/23/22 at 2009 by Agency Nurse 22, SUE RN Vital signs flowsheet placed in physical chart.
[2022-11-23 19:48] LABS: PLATELET COUNT (AUTO) 16 K/uL (140-450)
[2022-11-23] MEDS: MULTIVITAMIN IV SCH ×3 (19:51)
[2022-11-23] MEDS: DEXTROSE IV SCH ×3 (19:51)
[2022-11-23] MEDS: AMINO ACIDS 8.5% IV SCH ×3 (19:51)
--- NOTE | 2022-11-23 21:50 | NUR ---
PT SATURATION 100% FOR PREVIOUS 4 HOURS, WILL TITRATE TO 80% FIO2 AT THIS TIME. PT MAINTAIN SATURATIONS ABOVE 92% ON 80% FIO2, RN INFORMED, WILL CONTINUE TO MONITOR
[2022-11-23] MEDS ORDERED: MAG SULF 2000 MG/WATER PREMIX 50 ML IV ONE (21:55)
[2022-11-23] MEDS ORDERED: PHENYLEPHRINE 10 MG/ML VIAL ONE (22:34)
[2022-11-24] VITALS (32 sets, daily range): BP systolic 96–137; BP diastolic 41–76; PULSE 103–129; RESP 17–24; TEMP 96.5–99.5; O2SAT 93–100
[2022-11-24] MEDS: BLOOD GLUCOSE MONITORING 1 DEV DEV FS SCH ×6 (01:00→21:00)
[2022-11-24] MEDS: NOREPINEPHRINE 16 MG in DEXTROSE 5% 250 ML IV PRN ×2 (01:52→14:48)
[2022-11-24 05:26] LABS: HEMATOCRIT 23.4 % (36-48); HEMOGLOBIN 7.5 g/dL (12.0-16.0); MEAN CORPUSCULAR HEMOGLOBIN 29 pg (27-31); MEAN CORPUSCULAR HGB CONC 32 g/dL (33-37); MEAN CORPUSCULAR VOLUME 90.8 fL (80-94); RED BLOOD CELL COUNT(AUTO) 2.58 MIL/uL (4.20-5.40); RED CELL DISTRIBUTION WIDTH 20.3 % (11.6-13.7); WHITE BLOOD COUNT (AUTO) 9.4 K/uL (4.8-10.8)
[2022-11-24 05:36] LABS: PLATELET COUNT (AUTO) 7 K/uL (140-450)
[2022-11-24 05:39] LABS: ALBUMIN 1.8 g/dL (3.4-5.0); ANION GAP 24.3 (8-16); CARBON DIOXIDE 15.3 mmol/L (21-32); CREATININE 2.7 mg/dL (0.6-1.3); MAGNESIUM 2.2 mg/dL (1.8-2.4); POTASSIUM 3.6 mmol/L (3.5-5.1); TOTAL BILIRUBIN 4.5 mg/dL (0.0-1.0)
[2022-11-24 06:20] LABS: BASOPHILS % (MANUAL) 0 % (0-2); BLASTS, MANUAL % 5 % (0-0); EOSINOPHILS % (MANUAL) 4 % (0-4); LYMPHOCYTES % (MANUAL) 12 % (20-46); METAMYELOCYTES % 3 % (0-0); MONOCYTES % (MANUAL) 17 % (5-12); MYELOCYTES % 1 % (0-0); PROMYELOCYTES % 2 % (0-0)
[2022-11-24 06:24] LABS: CORRECTED WHITE BLOOD COUNT 7.5 K/uL (4.5-11.0)
[2022-11-24] MEDS ORDERED: VASOPRESSIN 20 UNITS/ML VIAL ONE (06:39)
[2022-11-24] MEDS: VASOPRESSIN 20 UNITS in NACL 0.9% 250 ML IV SCH ×2 (06:42→16:34)
--- NOTE | 2022-11-24 07:00 | NUR ---
Platelet=7; Dr. Richards made aware. Platelet # 1 of 2 transfusing @ this time. Urine xxhezb=396 ml/12 hrs and Creatining=2.7; Dr. Richards made aware with no new orders. Pt. had 1 large black tarry liquid stool this am; Lan Richards made aware and pt for PRBC x 1 unit [id number] when possible. Will cont. to monitor.
--- NOTE | 2022-11-24 07:15 | NUR ---
RECEIVED BEDSIDE REPORT FROM FLIGHT CREW SCHEDULER AUGUST RN.OT SEDATED, NOT RESPOND TO VOICE, NOT FOLLOW SIMPLE COMMAND. ETT TO VENT, AC VC 75% TV 400, RR 24, PEEP 5. ST ON MONITOR. NPO. SWENSON IN PLACE TO GRAVITY, DARK JACE. MULTIPLE BRUISING AND BLISTERS, SEE WOUND ASSESSMENT. PICC LINE TO TIM, INFUSING LEVO @22 MCG/MIN, VASO @0.03 UNIT/MIN, OCTREOTIDE @ 5ML/H, PRECEDEX @ 0.2 MCG/KG/H, PLTS @ 200MLS/H. NEUTROPENIC PRECAUTION, BLEEDING PRECAUTION IN PLACE. HOB ELEVATED, SAFTY PRECAUTION IN PLACE, AND WILL CONTINUE TO MONITOR.
--- NOTE | 2022-11-24 07:38 | NUR ---
CALLED BACK DUE TO CRITICAL ABG RESULTS AND MADE AWARE. PHYSICIAN STATES TO INCREASE VT TO 450ml, FIO2 TITRATED TO 65%. NURSE AWARE. WILL CONTINUE TO MONITOR.
[2022-11-24] MEDS ORDERED: SODIUM BICARBONATE 8.4% 100 MEQ in DEXTROSE 5% 1,000 ML IV SCH (07:45)
--- NOTE | 2022-11-24 08:15 | NUR ---
ACCU CHECK, GLUCOSE LEVEL 16, D 50 X1 GIVEN PER PROTOCOL.
[2022-11-24] MEDS ORDERED: SODIUM BICARBONATE 8.4% PFS 50 MEQ/50 ML SYR IVP SCH (08:28)
[2022-11-24] MEDS: DEXTROSE 50% 50 ML SYR IVP PRN ×2 (08:29→09:14)
[2022-11-24] MEDS: PANTOPRAZOLE 40 MG INJ VIAL IVP SCH ×2 (08:39→21:12)
[2022-11-24] MEDS: MEROPENEM 1,000 MG in NACL 0.9% 50 ML IV SCH ×2 (08:40→21:08)
[2022-11-24] MEDS: LACTULOSE PR SCH (08:42)
--- NOTE | 2022-11-24 08:56 | NUR ---
ACCU CHECK, GLUCOSE LEVEL 14, D 50 X1 GIVEN PER PROTOCOL
[2022-11-24] MEDS: INSULIN LANTUS 100 UNITS/ML 10 ML VIAL SUBQ SCH (09:00)
[2022-11-24 09:36] LABS: PROTHROMBIN TIME 16.5 secs (10.8-13.4)
--- NOTE | 2022-11-24 09:40 | NUR ---
PLTS TRANSFUSION FINISHED. PRBC STARTED. NO HEMOLYTIC REACTIONS. VS STABLE.
[2022-11-24] MEDS ORDERED: DEXTROSE 5% 1,000 ML IV SCH (09:50)
--- NOTE | 2022-11-24 09:50 | NUR ---
DR KIRBY ROUNDING AT BEDSIDE. UPDATED PT INFORMATION.
[2022-11-24] MEDS: SODIUM BICARBONATE 8.4% 150 MEQ in DEXTROSE 5% 1,000 ML IV SCH ×2 (09:55→14:45)
[2022-11-24] MEDS: DEXTROSE IV SCH ×3 (10:01)
[2022-11-24] MEDS: MULTIVITAMIN IV SCH ×3 (10:01)
[2022-11-24] MEDS: AMINO ACIDS 8.5% IV SCH ×3 (10:01)
[2022-11-24] MEDS: DEXMEDETOMIDINE HCL 400 MCG in NACL 0.9% 96 ML IV PRN ×2 (10:16→21:12)
[2022-11-24] MEDS ORDERED: PPN PER PHARMACY MC PRN (11:40)
--- NOTE | 2022-11-24 11:56 | NUR ---
PRBC TRANSFUSION FINISHED. WILL RECHECK CBC IN 2 HOURS.
[2022-11-24] MEDS ORDERED: TPN PER PHARMACY MC PRN (12:45)
[2022-11-24 14:00] LABS: BASOPHILS % (AUTO) 0.1 % (0.0-2.0); EOSINOPHILS # (AUTO) 0.2 K/uL (0-0.4); EOSINOPHILS % (AUTO) 2.5 % (0.0-4.0); HEMATOCRIT 24.4 % (36-48); LYMPHOCYTES # (AUTO) 0.4 K/uL (2.5-16.5); MEAN CORPUSCULAR HEMOGLOBIN 29 pg (27-31); MEAN CORPUSCULAR HGB CONC 33 g/dL (33-37); MEAN CORPUSCULAR VOLUME 88.9 fL (80-94); MONOCYTES % (AUTO) 0.4 % (1.7-9.3); NEUTROPHILS # (AUTO) 8.4 K/uL (1.8-7.7); PLATELET COUNT (AUTO) 41 K/uL (140-450); RED BLOOD CELL COUNT(AUTO) 2.75 MIL/uL (4.20-5.40); RED CELL DISTRIBUTION WIDTH 19.4 % (11.6-13.7)
--- NOTE | 2022-11-24 14:30 | NUR ---
SEEN AND EXAMINED BY DR WHARTON. UPDATED PT INFORMATION. NEW ORDER RECEIVED.
[2022-11-24] MEDS ORDERED: ALBUMIN HUMAN 25% 100 ML IV SCH (14:36)
[2022-11-24] MEDS ORDERED: DEXTROSE 10% 1,000 ML IV PRN (15:20)
--- NOTE | 2022-11-24 16:00 | NUR ---
DR JAMIE ARTHUR AT BEDSIDE. UPDATED PT INFORMATION. NEW ORDER RECEIVED. HOLD TPN DUE TO HIGH VOLUME INTAKE, PT IS NOT MAKING URINE
[2022-11-24] MEDS ORDERED: FUROSEMIDE 100 MG/10 ML VIAL IV SCH (16:05)
[2022-11-24] MEDS ORDERED: COMMUNICATION ORDER MC PRN (16:05)
[2022-11-24] MEDS: INSULIN LISPRO SLIDING SCALE 100 UNITS/ML VIAL SUBQ PRN ×2 (16:35→21:15)
[2022-11-24] MEDS ORDERED: ALBUMIN HUMAN 25% 50 ML IV ONE (18:00)
[2022-11-24] MEDS: OCTREOTIDE ACETATE 1.25 MG in NACL 0.9% 250 ML IV SCH (18:15)
--- NOTE | 2022-11-24 19:24 | NUR ---
ENDORSED TO RELATIONSHIP ADVISOR AUGUST RN FOR CONTINUITY OF CARE. ALL QUESTION ANSWERED.
[2022-11-24] MEDS ORDERED: AMINO ACIDS 8.5% IV SCH ×3 (20:00)
[2022-11-24] MEDS ORDERED: MULTIVITAMIN IV SCH ×3 (20:00)
[2022-11-24] MEDS ORDERED: DEXTROSE IV SCH ×3 (20:00)
[2022-11-24] MEDS ORDERED: LACTULOSE 20 GM/30 ML UDC PR SCH (21:00)
[2022-11-25] VITALS (31 sets, daily range): BP systolic 106–149; BP diastolic 41–68; PULSE 78–109; RESP 23–27; TEMP 97–98.3; O2SAT 86–100
[2022-11-25] MEDS: BLOOD GLUCOSE MONITORING 1 DEV DEV FS SCH ×6 (00:47→20:00)
[2022-11-25] MEDS: INSULIN LISPRO SLIDING SCALE 100 UNITS/ML VIAL SUBQ PRN ×3 (00:55→22:34)
[2022-11-25] MEDS: NOREPINEPHRINE 16 MG in DEXTROSE 5% 250 ML IV PRN ×2 (04:23→17:49)
[2022-11-25] MEDS: VASOPRESSIN 20 UNITS in NACL 0.9% 250 ML IV SCH ×2 (04:25→17:33)
[2022-11-25] MEDS: DEXMEDETOMIDINE HCL 400 MCG in NACL 0.9% 96 ML IV PRN ×2 (04:26→17:41)
[2022-11-25] MEDS: SODIUM BICARBONATE 8.4% 150 MEQ in DEXTROSE 5% 1,000 ML IV SCH (04:30)
[2022-11-25 05:46] LABS: EOSINOPHILS # (AUTO) 0.2 K/uL (0-0.4); EOSINOPHILS % (AUTO) 1.3 % (0.0-4.0); HEMATOCRIT 25.4 % (36-48); HEMOGLOBIN 8.4 g/dL (12.0-16.0); LYMPHOCYTES # (AUTO) 0.4 K/uL (2.5-16.5); LYMPHOCYTES % (AUTO) 2.1 % (20.5-51.1); MEAN CORPUSCULAR HEMOGLOBIN 29 pg (27-31); MEAN CORPUSCULAR HGB CONC 33 g/dL (33-37); MEAN CORPUSCULAR VOLUME 87.9 fL (80-94); MONOCYTES # (AUTO) 0.1 K/uL (0.8-1.0); MONOCYTES % (AUTO) 0.8 % (1.7-9.3); NEUTROPHILS # (AUTO) 15.9 K/uL (1.8-7.7); NEUTROPHILS % (AUTO) 95.8 % (42.2-75.2); RED BLOOD CELL COUNT(AUTO) 2.89 MIL/uL (4.20-5.40); RED CELL DISTRIBUTION WIDTH 19.3 % (11.6-13.7); WHITE BLOOD COUNT (AUTO) 16.6 K/uL (4.8-10.8)
[2022-11-25 05:53] LABS: PLATELET COUNT (AUTO) 16 K/uL (140-450)
[2022-11-25 06:12] LABS: ALBUMIN 2.3 g/dL (3.4-5.0); ANION GAP 23.8 (8-16); CARBON DIOXIDE 18.7 mmol/L (21-32); CREATININE 2.6 mg/dL (0.6-1.3); MAGNESIUM 2.3 mg/dL (1.8-2.4); POTASSIUM 3.5 mmol/L (3.5-5.1); TOTAL BILIRUBIN 7.2 mg/dL (0.0-1.0)
[2022-11-25] MEDS: ALBUMIN HUMAN 25% 50 ML IV SCH ×4 (06:44→23:13)
--- NOTE | 2022-11-25 07:00 | NUR ---
Pt. remains on Levophed and Vasopressin Drips to keep MAP>[address] on tne monitor. Sedated on Precedex Drip. Sandostatin and BIcab Drip infusing as ordered. Pt. has multiple burst blisters on body; kept clean and dry. BUN 74 and Platelet=16; Dr. Poole and Dr. Headley made aware with no new orders. No symptoms of gelacio bleeding @ this time. Cardiac and resp. monitoring cont. kept clean and dry. Rt. hand purple discoloration. Report given to Elana with all questions answered. Care endorsed
[2022-11-25] MEDS: INSULIN LANTUS 100 UNITS/ML 10 ML VIAL SUBQ SCH (09:00)
[2022-11-25] MEDS: PANTOPRAZOLE 40 MG INJ VIAL IVP SCH ×2 (09:00→21:01)
[2022-11-25] MEDS: MEROPENEM 1,000 MG in NACL 0.9% 50 ML IV SCH ×2 (09:00→20:59)
[2022-11-25] MEDS: LACTULOSE 20 GM/30 ML UDC PO SCH ×4 (10:48→21:00)
--- NOTE | 2022-11-25 10:55 | NUR ---
WOUND CARE EVALUATION NOTE: SKIN ASSESSMENT DONE WITH THIS 67 Y/O PT ADMITTED TO [facility] WITH INITIAL DX RECTAL BLEEDING. PAST MEDICAL HX CIRRHOSIS, DM, HTN, GERD, HYPOTHYROIDISM. PT AT ICU INTUBATED, TPN AND DIALYSIS ON HOLD. ALL ABOVE INFORMATION OBTAINED FROM H&P AND CHART REVIEW. PRIMARY RN REPORT OF CHANGE OF SKIN CONDITION. SKIN ASSESSMENT DONE WITH PRIMARY RN AND PHOTO OBTAINED. DR. MONET AT BED SIDE EXAM PT. CONDITION. POC DISCUSSED WITH DR. MONET, PER PT. SKIN ISCHEMIA FROM HYPOTENSION. PT,. REMAIN ON LEVOPHED AND VASOPRESSIN. PT IS SEDATED. SKIN IS WARM AND MOIST, TRUNK OD BODY, BUE +3 EDEMA, ECCHYMOSIS TO LEFT UPPER ARM FROM S/P FALL, ARM SLING IN PLACE POC DISCUSSED WITH PHYSICAL THERAPY FOR ARM SLING APPLICATION. BLE NO HAIR GROWTH, +3 EDEMA. DORSAL PEDAL PULSES PRESENT AND NORMAL. CAPILLARY REFILLED < 2 SEC. X 10 TOES. F/C PATENT WITH SMALL AMOUNT YELLOW COLOR URINE OUT PUT OBSERVED. PLAN OF CARE DISCUSSED WITH PRIMARY RN. AND SON WITH WOUND PHOTOS REVIEWED. COMORBIDITIES WITH DELAY WOUND HEALING AND FURTHER SKIN BREAKS EXPLAINED, SON VERBALIZES UNDERSTANDING, REQUEST TO SPEAK TO WEED INSPECTOR, CHARGE NURSE JEFF NOTIFXiomara. LAB RESULTS WBC 16.6, RBC 2.89, H/H 8.4/25.4, PLAT. COUNT 16L, ALBUMIN 2.3, PT/INR 16.5/1.61 COMORBIDITIES RELATED TO DELAY WOUND HEALING, FURTHER SKIN BREAKS AND UN-AVOIDABLE PRESSURE INJURY: SEPSIS INFECTION, DM, KIDNEY FAILURE WITH HD, LIVER FAILURE, ACUTE HYPOXEMIC DECREASE TISSUE PERFUSION, TISSUE ISCHEMIA , DECREASE MOBILITY AND FUNCTIONAL ABILITIES, AND HOB ELEVATED THE MAJORITY OF TIMES DUE TO MEDICAL REASONS. INTEGUMENTARY: -ORAL MEMBRANE PINK INTACT, LIPS, CHEEKS SKIN DRY, NO OPEN WOUNDS -MULTIPLE ECCHYMOSIS TO TRUNK OF BODY RIGHT SIDE ([id number]) AND EXTREMITIES, FURTHER ECCHYMOSIS MAY INDICATED RELATED ABNORMALITY OF PT/INR -MULTIPLE OPEN BLISTERING SKIN WITH DIFFUSED ECCHYMOSIS TO RIGHT FOREARM (13X5X0.1CM WOUND BED KT YELLOW,WEEPING, MOIST SKIN, NO ODOR ) AND LEFT FOREARM ([id number] SKIN WEEPING MOIST ECCHYMOSIS). CYANOSIS/ISCHEMIA X10 FINGERS. OPEN BLISTERING SKIN WITH DIFFUSED ECCHYMOSIS TO LEFT GROINS/THIGH (4X10X0.1CM WOUND BED PALE PINK,MOIST, NO ODOR), RIGHT LEG INTACT CLEAR FLUIDS BLISTERING SKIN ANTERIOR AND LATERAL ASPECT. -MULTIPLE DTI ,BLOODY BLISTERING SKIN, TO COCCYX(1.5X1.5CM), RIGHT INNER BUTTOCK(2X2CM), LEFT BUTTOCK (3X1CM), LEFT HEEL(2.5X2CM,SKIN INTACT) -MOISTURE ASSOCIATED SKIN DAMAGE(MASD) TO: B/L GROINS, PERINEUM, SKIN MOIST AND RED RECOMMENDATIONS: -KEIRY-CARE Q2H AND APPLY Z GUARD TO R/L GROINS, PERINEUM BID AND PRN IF SOILING -CLEANSE COCCYX RIGHT AND LEFT BUTTOCKS WITH WOUND CLEANSING SOLUTION AND COVER WITH FOAM DRESSING QD AND PRN IF SOILING -CLEANSE COCCYX RIGHT AND LEFT BUTTOCKS WITH WOUND CLEANSING SOLUTION AND COVER WITH FOAM DRESSING QD AND PRN IF SOILING -CLEANSE LEFT AND RIGHT FOREARM AND LEFT THIGH BLISTERING WOUNDS WITH WOUND CLEANSING SOLUTION AND APPLY WITH XEROFORM DRESSING COVER WITH DRY DRESSING QD AND PRN IF SOILING -APPLY FOAM DRESSING TO BONY PROMINENCE DAILY AND PRN IF SOILING PREVENTION -APPLY SKIN PREP WIPE TO BILATERAL HEELS BID, SPOT WASHER AND APPLY HEEL PROTECTORS TO BILATERAL HEELS WITH PILLOWS OFFLOADING -ABSORBANT PD TO BILATERAL UPPER EXTREMITIES WEEPING SKIN, CHANGE PRN IF SOILING -POSITIONING: TURN AND REPOSITION PATIENT Q 2H OR SOONER USE PILLOWS TO KEEP BONY PROMINENCES FROM DIRECT CONTACT WITH SURFACES USE REPOSITIONING WEDGES TO PROVIDE 30-DEGREE ANGLE FOR SIDE LYING POSITIONS OFFLOADING OR FOAM DRESSING TO ALL TUBING TO PREVENT MEDICAL DEVICES RELATED PRESSURE INJURY -RE-EVALUATING AND MANAGING INCONTINENCE MONITOR SKIN CONDITION DURING POSITION CHANGE DO NOT MASSAGE REDNESS, BONY PROMINENCES FREQUENT KEIRY-CARE AND PROVIDE BARRIER CREAMS PRN IF SOILING MOISTURE CONTROL BY F/C, ABSORBENT PAD TO WICK AND HOLD MOISTURE. KEEP SKIN DRY AND PROTECT FROM FRICTION -MANAGE FRICTION/SHEAR/MOBILITY KEEP HOB AT THE LOWEST LEVEL OF ELEVATION NO MORE THAN 30 DEGREES UNLESS OTHERWISE CONTRAINDICATED USE LIFT SHEET TO MOVE PATIENT AND PREVENT LATERAL SHEER. PROTECT HEELS, ELBOWS BONY PROMINENCES WITH SKIN BERRIES OR FOAM DRESSING IF EXPOSED TO FRICTION OFFLOAD BILATERAL HEELS BY PLACING PILLOWS UNDER CALVES AT ALL TIMES, UNLESS OTHERWISE CONTRAINDICATED -PRESSURE REDISTRIBUTION SURFACE THERAPY SATURNINO ISOFLEX EDGAR MATTRESS -NUTRITION: PLEASE FOLLOW RD RECOMMENDATIONS AND OFFER NUTRITION SUPPLEMENTS IF ORDERED. PLEASE CONTACT WOUND CARE NURSE FOR ANY QUESTION AND CHANGE OF WOUND CONDITION.
--- NOTE | 2022-11-25 11:57 | NUR ---
P.T. NOTES HOLD P.T. TX DUE TO TRANSFERRED TO ICU; WILL AWAIT P.T. RE EVAL ORDER WHEN APPROPRIATE.
--- NOTE | 2022-11-25 14:48 | NUR ---
11/25/22 RD FOLLOW UP COMPLETED PLEASE REFER TO NUTRITION ASSESSMENT UNDER CARE ACTIVITY FOR ESTIMATED NUTRITIONAL NEEDS. 1. RD TUBE FEEDING RECOMMENDATION IS NEPRO @30ML/HR WITH FWF OF 100 Q4H OR PER MD TOLERATED. THIS WILL PROVIDE 1,080 CALORIES AND 48 GRAMS OF PROTEIN. START TUBE FEEDING AT 10ML/HR AND INCREASE BY 10 Q4H TILL GOAL OF 30ML/HR IS MET. 2. RD TO FOLLOW-UP 2-3 DAYS, HIGH RISK PAT LEUNG RD
[2022-11-25] MEDS ORDERED: NON ADHERENT DRESSING TP PRN (15:05)
[2022-11-25] MEDS ORDERED: FOAM DRESSING TP PRN (15:05)
--- NOTE | 2022-11-25 19:30 | NUR ---
RECEIVED REPORT FROM DA SHIFT NURSE, SUE NICOLE. ALL CARES ASSUMED. RECEIVED PT ON SEMI-SOARES'S POSITION WITH SIDE RAILS RAISED UP. PT IS SEDATED BUT ABLE TO OPEN EYES WITH STIMULATION- ABLE TO TRACKS AT TIMES. ON SINUS TACHYCARDIA ON EMPLOYMENT RECRUITER. WITH NGT TO LEFT NARES ATTACHED TO CONTINUOUS SUCTION DRAINING TO CLEAR TO REDDISH OUTPUT. ON ETT ATTACHED TO MECHANICAL VENTILATOR,ON AC/VC MODE FIO2-65% TV-400ML RR-24CPM PEEP-5 - SPO2 AT 90-93%. EQUAL CHEST RISE OBSERVED. WITH RIGHT UPPER PICC LINE - DRY AND INTACT- FLOWING WELL TO LEVOPHED AT 20 MCG/MIN, PRECEDEX 0.5 MCG/KG/HR, VASOPRESSIN 0.03 UNITS/MIN, OCTREOTIDE 25 MCG/HR, AND NS AT TKO. WITH ANOTHER IV ACCESS OVER LEFT FOREARM GAUGE 22- DRY AND INTACT- FLOWING TO SODIUM BICARBONATE AT 75 ML/HR. KIN NON-INTACT WITH OOZING BLISTERS NOTED ON BILATERAL FOREARM AND THIGHS - WITH DRESSING OVER TO TIM AND LLE. ALSO NOTED WITH BUE PITTING EDEMA AND PURPLISH SKIN DISCOLORATION ON RIGHT HAND. ECCHYMOSIS OBSERVED OVER LEFT UPPER ARM FROM PREVIOUS FALL. WITH SWENSON CATHETER IN PLACE DRAINING TO GRAVITY WITH DARK YELLOW-COLORED URINE NOTED. WILL MONITOR PT CLOSELY.
--- NOTE | 2022-11-25 21:00 | NUR ---
FAMILY AT BEDSIDE.
[2022-11-25] MEDS ORDERED: OCTREOTIDE ACETATE 1000 MCG/5 ML VIAL ONE (21:48)
[2022-11-25] MEDS ORDERED: FAMOTIDINE 20 MG/2 ML VIAL ONE (21:51)
[2022-11-25] MEDS: OCTREOTIDE ACETATE 1.25 MG in NACL 0.9% 250 ML IV SCH (21:59)
--- NOTE | 2022-11-25 22:00 | NUR ---
CALLED TO BEDSIDE BECAUSE VENT WAS ALARMING. ALARM FOR LOW PEAK PRESSURES. CHECKED CUIRCUT FOR LEAK, NO LEAK PRESENT. CHANGED VENT SETTING TO PC. NOW PRESSURES WERE 17 -20. Addendum: 11/26/22 at 0622 by Tomasa Whitehead RT PREVIOUS NOTE WAS INCORRECT. WAS FOR ICU BED 1 PT PEAK PRESSURES WERE > 40 AND FIO2 WAS 88-90%. CHANGED VENT SETTING TO PRVC MODE AND INCREASED PEEP TO 6. FiO2 NOW BETWEEN 92% TO 94%. CONTINUED TO MONTITOR THROUGHOUT THE NIGHT.
--- NOTE | 2022-11-25 23:00 | NUR ---
FAMILY MEMBERS CAME TO VISIT. UPDATED PTS CURRENT STATUS.
--- NOTE | 2022-11-25 23:00 | NUR ---
SPO2 OF 86-87% OBSERVED. SECRETIONS SUCTIONED NEEDED. RT INFORMED. KEPT WATCHED. Addendum: 11/26/22 at 0201 by CHERRIE DEY RN INFORMED RT JUDITH.
--- NOTE | 2022-11-25 23:25 | NUR ---
SEEN AND EXAMINED BY RT JUDITH. FIO2 SETTING INCREASED TO 100%. PT SATTING AT 90-93%. KEPT MONITORED.
--- NOTE | 2022-11-25 23:29 | NUR ---
2325 INCREASED FIO2 TO 100%. SATS DROPPED TO 86%. FAMILY AT BED SIDE .
[2022-11-26] VITALS (32 sets, daily range): BP systolic 91–134; BP diastolic 40–64; PULSE 80–109; RESP 22–33; TEMP 96.5–98.1; O2SAT 91–99
[2022-11-26] MEDS: BLOOD GLUCOSE MONITORING 1 DEV DEV FS SCH ×6 (00:03→20:15)
[2022-11-26] MEDS: Z-GUARD PASTE TP SCH ×2 (04:00→12:14)
--- NOTE | 2022-11-26 04:30 | NUR ---
BED SPONGE BATH DONE. WOUND CLEANSING DONE AND DRESSINGS CHANGED.
[2022-11-26] MEDS ORDERED: VASOPRESSIN 20 UNITS/ML VIAL ONE (05:02)
[2022-11-26] MEDS: VASOPRESSIN 20 UNITS in NACL 0.9% 250 ML IV SCH (05:07)
[2022-11-26] MEDS: DEXMEDETOMIDINE HCL 400 MCG in NACL 0.9% 96 ML IV PRN ×2 (05:33→14:59)
[2022-11-26] MEDS: ALBUMIN HUMAN 25% 50 ML IV SCH ×3 (05:34→18:03)
[2022-11-26] MEDS: INSULIN LISPRO SLIDING SCALE 100 UNITS/ML VIAL SUBQ PRN ×2 (05:36→15:35)
[2022-11-26] MEDS: SODIUM BICARBONATE 8.4% 150 MEQ in DEXTROSE 5% 1,000 ML IV SCH (07:20)
--- NOTE | 2022-11-26 07:30 | NUR ---
REPORT GIVEN TO DAYSWYFT NURSEMISTY RN. ALL QUESTIONS ANSWERED.
[2022-11-26 07:54] LABS: ALBUMIN 2.5 g/dL (3.4-5.0); ANION GAP 27.5 (8-16); CARBON DIOXIDE 19.7 mmol/L (21-32); CREATININE 2.3 mg/dL (0.6-1.3); MAGNESIUM 2.1 mg/dL (1.8-2.4); POTASSIUM 3.2 mmol/L (3.5-5.1); TOTAL BILIRUBIN 8.9 mg/dL (0.0-1.0)
[2022-11-26 08:00] LABS: HEMATOCRIT 23.4 % (36-48); HEMOGLOBIN 7.8 g/dL (12.0-16.0); MEAN CORPUSCULAR VOLUME 87.3 fL (80-94); RED BLOOD CELL COUNT(AUTO) 2.68 MIL/uL (4.20-5.40); WHITE BLOOD COUNT (AUTO) 30.1 K/uL (4.8-10.8)
[2022-11-26 08:01] LABS: MEAN CORPUSCULAR HEMOGLOBIN 28 pg (27-31); MEAN CORPUSCULAR HGB CONC 33 g/dL (33-37); PLATELET COUNT (AUTO) 20 K/uL (140-450); RED CELL DISTRIBUTION WIDTH 19.5 % (11.6-13.7)
[2022-11-26 08:02] LABS: LYMPHOCYTES % (MANUAL) 10 % (20-46); MONOCYTES % (MANUAL) 8 % (5-12)
--- NOTE | 2022-11-26 08:30 | NUR ---
NOTIFIED DR BLACKBURN OF ELEVATED BUN 76 AND LOW POTASSIUM 3.2 NO ORDERS AT THIS TIME.
[2022-11-26] MEDS: NOREPINEPHRINE 16 MG in DEXTROSE 5% 250 ML IV PRN ×2 (08:44→23:14)
[2022-11-26] MEDS: PANTOPRAZOLE 40 MG INJ VIAL IVP SCH ×2 (09:02→21:30)
[2022-11-26] MEDS: LACTULOSE 20 GM/30 ML UDC PO SCH ×4 (09:02→21:32)
[2022-11-26] MEDS: MEROPENEM 1,000 MG in NACL 0.9% 50 ML IV SCH ×2 (09:02→21:30)
[2022-11-26] MEDS: INSULIN LANTUS 100 UNITS/ML 10 ML VIAL SUBQ SCH (09:05)
[2022-11-26] MEDS ORDERED: VANCOMYCIN PER PHARMACY MC PRN (09:45)
--- NOTE | 2022-11-26 09:50 | NUR ---
DISCUSSED PLAN OF CARE WITH DR MONET. NEW ORDERS DISCUSSED. DR GALLEGOS CONSULTED FOR ID FOR ELEVATED WBC.
[2022-11-26] MEDS ORDERED: VANCOMYCIN 1,000 MG in NACL 0.9% 250 ML IV SCH (10:30)
[2022-11-26] MEDS ORDERED: POTASSIUM CHLORIDE 10 MEQ TABER PO SCH (11:25)
[2022-11-26] MEDS ORDERED: POTASSIUM CHLORIDE 20% 40 MEQ/15 ML UDC NG PRN (12:05)
[2022-11-26] MEDS: FUROSEMIDE 40 MG/4 ML VIAL IVP SCH ×4 (12:13→21:32)
[2022-11-26] MEDS: FOAM DRESSING TP SCH (12:14)
[2022-11-26] MEDS: NON ADHERENT DRESSING TP SCH (12:14)
[2022-11-26 17:06] LABS: ANION GAP 21.8 (8-16); CARBON DIOXIDE 24.4 mmol/L (21-32); CREATININE 2.5 mg/dL (0.6-1.3); POTASSIUM 3.2 mmol/L (3.5-5.1)
[2022-11-26 17:17] LABS: APPEARANCE,URINE SL CLOUDY (CLEAR); BILIRUBIN,URINE 2+ (NEGATIVE); BLOOD, URINE 2+ (NEGATIVE); COLOR,URINE ORANGE (YELLOW); LEUKOCYTE ESTERASE ,URINE NEGATIVE (NEGATIVE); NITRITE, URINE NEGATIVE (NEGATIVE); PH,URINE 5.5 (5.0-9.0); UGLUCOSE NEGATIVE (NEGATIVE)
[2022-11-26 17:25] LABS: RBC,URINE 11-20 (MOD) /HPF (0-5)
[2022-11-26 17:26] LABS: YEAST,URINE Many /HPF (None Seen)
[2022-11-26] MEDS: OCTREOTIDE ACETATE 1.25 MG in NACL 0.9% 250 ML IV SCH (18:04)
--- NOTE | 2022-11-26 20:00 | NUR ---
RECEIVED REPORT FROM DAY SHIFT NURSE. RECEIVED PT IN SEMI-SOARES POSITION WITH ALL SIDE RAILS RAISED UP. PT SEDATED BUT EASILY AROUSED BY STIMULI AND VOICE. PT RESPONDED TO QUESTION WITH SUBTLE NODS. SINUS RHYTHM ON HARD CANDY BATCH MIXER. LUNG SOUNDS WHEEZING INSPIRATORY AND EXPIRATORY. ON ETT TO VENTILATOR, ON AC/VC MODE WITH FIO2 100%, VT 450, RATE 24, AND PEEP AT 8. EQUAL CHEST RISE OBSERVED. PT WITH NGT TO LEFT NARES WITH NEPRO RUNNING AT 10 ML/HR. PT WITH MULTIPLE BRUISES AND BLISTERS THROUGHOUT ARMS AND HANDS. DISCOLORATION NOTED ON FINGERS OF BOTH UPPER EXTREMITY. RIGHT UPPER PICC LINE CLEAN, DRY, AND INTACT WITH NO S/S OF REDNESS, DISCHARGE, OR INFECTION. PT WITH LEVOPHED AT 16MCG, OCTREOTIDE 25MCG, PRECEDEX0.02 UNITS/MIN AND NS AT TKO. CONTINUE TO MONITOR AND CONTINUE OF CARE
[2022-11-27] VITALS (45 sets, daily range): BP systolic 65–139; BP diastolic 35–105; PULSE 71–154; RESP 22–37; TEMP 96.3–97.5; O2SAT 86–98
[2022-11-27] MEDS: ALBUMIN HUMAN 25% 50 ML IV SCH ×2 (00:47→05:34)
[2022-11-27] MEDS: BLOOD GLUCOSE MONITORING 1 DEV DEV FS SCH ×6 (00:52→20:00)
[2022-11-27] MEDS: Z-GUARD PASTE TP SCH ×2 (01:27→12:43)
[2022-11-27] MEDS: FUROSEMIDE 40 MG/4 ML VIAL IVP SCH ×3 (05:34→21:25)
--- NOTE | 2022-11-27 07:00 | NUR ---
RECEIVED PT ON PRVC 450,F24, +8,100%. VENT WHEELS ARE LOCKED, PLUGGED INTO RED OUTLET, ALARMS ARE SET AND AUDIBLE, AMBUBAG AT BEDSIDE. SATURATION 94%. CLEAR/ DIMINISHED BREATH SOUNDS. WILL CONTINUE TO MONITOR.
--- NOTE | 2022-11-27 07:20 | NUR ---
REPORT RECEIVED FROM NICOLE ROGERS, ALL CARES ASSUMED. PT INTUBATED, SEDATED. ETT TO VENT, AC/PRVC 24, 450, 100%, 8. PT HR 140-160, RR 36. PT APPEARS AGITATED, GRIMACING. LEVOPHED 16MCG/MIN, PRECEDEX 0.4MCG/KG/HR, SANDOSTATIN 25 MCG/HR INFUSING THROUGH TIM PICC LINE. SWENSON CATHETER DRAINING TO GRAVITY, NO URINE OUTPUT IS NOTED. RIGHT HAND DISCOLORED, DARK, GREEN; THIRD, FOURTH AND FIFTH DIGIT TIPS ARE BLACK. PALM OF RIGHT HAND HAS DARK DISCOLORATION AND SKIN IS FIRM. BUE AND BLE HAVE BRUISING THROUGHOUT. DARK PURPLE DISCOLORATION TO TOES. SCATTERED ECCHYMOSIS ALL OVER EXTREMITIES AND TORSO. BED IN LOW AND LOCKED POSITION.
--- NOTE | 2022-11-27 07:34 | NUR ---
ENDORSED TO DAY SHIFT SUE SARABIA FOR CONTINUITY OF CARE
[2022-11-27] MEDS: MORPHINE SULFATE 2 MG/ML SYR IVP PRN (07:49)
[2022-11-27 08:11] LABS: BASOPHILS # (AUTO) 0.1 K/uL (0.00-0.22); BASOPHILS % (AUTO) 0.2 % (0.0-2.0); EOSINOPHILS # (AUTO) 0.1 K/uL (0-0.4); EOSINOPHILS % (AUTO) 0.2 % (0.0-4.0); HEMATOCRIT 23.4 % (36-48); HEMOGLOBIN 7.9 g/dL (12.0-16.0); LYMPHOCYTES # (AUTO) 0.5 K/uL (2.5-16.5); LYMPHOCYTES % (AUTO) 1.9 % (20.5-51.1); MEAN CORPUSCULAR HEMOGLOBIN 29 pg (27-31); MEAN CORPUSCULAR HGB CONC 34 g/dL (33-37); MEAN CORPUSCULAR VOLUME 85.8 fL (80-94); MONOCYTES # (AUTO) 0.2 K/uL (0.8-1.0); MONOCYTES % (AUTO) 0.6 % (1.7-9.3); NEUTROPHILS % (AUTO) 97.1 % (42.2-75.2); RED BLOOD CELL COUNT(AUTO) 2.73 MIL/uL (4.20-5.40); RED CELL DISTRIBUTION WIDTH 18.8 % (11.6-13.7); WHITE BLOOD COUNT (AUTO) 24.8 K/uL (4.8-10.8)
[2022-11-27] MEDS: LACTULOSE 20 GM/30 ML UDC PO SCH ×4 (08:15→21:25)
[2022-11-27 08:19] LABS: PLATELET COUNT (AUTO) 6 K/uL (140-450)
--- NOTE | 2022-11-27 08:19 | NUR ---
Lab reported WBC = 24.8, Platelets = 6 levels. Values repeated back to lab for confirmation. Lab level immediately reported to pt.'s primary RN for MD follow up. Dr. Mir notified (Covering for Dr. Richards). Will await orders.
[2022-11-27] MEDS: INSULIN LANTUS 100 UNITS/ML 10 ML VIAL SUBQ SCH (08:20)
[2022-11-27] MEDS: PANTOPRAZOLE 40 MG INJ VIAL IVP SCH ×2 (08:21→21:23)
[2022-11-27] MEDS: MEROPENEM 1,000 MG in NACL 0.9% 50 ML IV SCH ×2 (08:21→21:22)
[2022-11-27] MEDS: INSULIN LISPRO SLIDING SCALE 100 UNITS/ML VIAL SUBQ PRN ×2 (08:24→12:40)
--- NOTE | 2022-11-27 08:24 | NUR ---
CALLED AND TEXT DR. WHARTON RESULTS FOR CURRENT AGB ON PT. PH 7.21, PCO2 42.7,PO2 54.1, HCO3 17.0. PT SATURATION 81.6 INCREASED PEEP FROM 8 TO 10. FIO2 IS 100%. LOW BLOOD PRESSURE AND TACHYCARDIC IN THE 150S. RELAYED 2 AMPS OF BICARB TO RN. WILL CONTINUE TO MONITOR.
[2022-11-27] MEDS: DEXMEDETOMIDINE HCL 400 MCG in NACL 0.9% 96 ML IV PRN (08:38)
[2022-11-27 08:39] LABS: ALBUMIN 2.4 g/dL (3.4-5.0); ANION GAP 30.5 (8-16); CARBON DIOXIDE 17.5 mmol/L (21-32); TOTAL BILIRUBIN 12.1 mg/dL (0.0-1.0)
[2022-11-27] MEDS ORDERED: SODIUM BICARBONATE 8.4% PFS 50 MEQ/50 ML SYR IVP SCH (08:55)
--- NOTE | 2022-11-27 09:27 | NUR ---
SATURATION STILL ON THE LOW SIDE. TITRATED PEEP FROM 10 TO 12, COULD GO HIGH 14, PER DR. WHARTON. I-TIME FROM 1.0 TO 1.5. WILL CONTINUE TO MONITOR.
--- NOTE | 2022-11-27 10:06 | NUR ---
Lab reported K = 6.1, BUN = 71 levels. Values repeated back to lab for confirmation. Lab level immediately reported to pt.'s primary RN for MD follow up.
--- NOTE | 2022-11-27 11:00 | NUR ---
DR WHARTON AND DR TIERNEY ARTHUR AT BEDSIDE. UPDATED SON OF PT. NO NEW ORDERS AT THIS TIME.
--- NOTE | 2022-11-27 11:30 | NUR ---
PER DR WHARTON, TUBE FEEDING IS ON HOLD AND PT IS ON LOW INTERMITTENT SUCTION.
--- NOTE | 2022-11-27 11:38 | NUR ---
11/27/22 RD FOLLOW UP COMPLETED PLEASE REFER TO NUTRITION ASSESSMENT UNDER CARE ACTIVITY FOR ESTIMATED NUTRITIONAL NEEDS. 1. CONTINUE WITH ORDER OF MD ON ANY CHANGES MADE ON PATIENTS NUTRITIONAL STATUS. FOR ANY NUTRITION ASSISTANCE PLEASE SEND CONSULT TO RD. 2. RD TO FOLLOW-UP 2-3 DAYS, HIGH RISK PAT LEUNG RD
[2022-11-27] MEDS: FOAM DRESSING TP SCH (12:40)
[2022-11-27] MEDS: NON ADHERENT DRESSING TP SCH (12:40)
[2022-11-27] MEDS ORDERED: VASOPRESSIN 20 UNITS/ML VIAL ONE (15:35)
[2022-11-27] MEDS: NOREPINEPHRINE 16 MG in DEXTROSE 5% 250 ML IV PRN (15:41)
[2022-11-27] MEDS ORDERED: KCL 20 MEQ IN 100 mL PREMIX 100 ML IV ONE (22:20)
[2022-11-27] MEDS ORDERED: METOPROLOL 5 MG/5 ML VIAL IV ONE (22:35)
[2022-11-27] MEDS ORDERED: METOPROLOL 5 MG/5 ML VIAL ONE (22:36)
[2022-11-27] MEDS ORDERED: PHENYLEPHRINE 10 MG/ML VIAL ONE (22:59)
[2022-11-27] MEDS: PHENYLEPHRINE 40 MG in NACL 0.9% 250 ML IV PRN (23:10)
--- NOTE | 2022-11-27 23:30 | NUR ---
pt. with multiple PVCs, trigeminal, runs; Dr. Mir made aware with orders for Potassium noted and carried out. pt. HR went into Afib with RVR 140s to 160s; Dr. Poole made aware and ordered Lopressor 5 mg IVP x 1; Pt. converted to SR after. Cardiac and resp. monitoring cont.
[2022-11-28] VITALS (23 sets, daily range): BP systolic 65–127; BP diastolic 34–81; PULSE 83–143; RESP 25; TEMP 96.9–97.4; O2SAT 42–98
[2022-11-28] MEDS: BLOOD GLUCOSE MONITORING 1 DEV DEV FS SCH ×5 (00:55→12:00)
[2022-11-28] MEDS: DEXTROSE 50% 50 ML SYR IVP PRN (01:02)
[2022-11-28] MEDS: Z-GUARD PASTE TP SCH ×2 (01:26→13:26)
[2022-11-28] MEDS ORDERED: VASOPRESSIN 20 UNITS/ML VIAL ONE (01:48)
[2022-11-28] MEDS ORDERED: NOREPINEPHRINE 4 MG/4 ML VIAL IV ONE (01:49)
[2022-11-28] MEDS ORDERED: PHENYLEPHRINE 10 MG/ML VIAL ONE (01:50)
[2022-11-28] MEDS: VASOPRESSIN 20 UNITS in NACL 0.9% 250 ML IV SCH ×2 (02:20→12:07)
[2022-11-28] MEDS: NOREPINEPHRINE 16 MG in DEXTROSE 5% 250 ML IV PRN ×2 (02:25→12:47)
[2022-11-28] MEDS ORDERED: ALBUMIN HUMAN 25% 100 ML IV ONE ×2 (02:40→02:41)
[2022-11-28] MEDS ORDERED: AMIODARONE 450 MG in DEXTROSE 5% 250 ML IV SCH (02:55)
[2022-11-28] MEDS ORDERED: AMIODARONE 150 MG in DEXTROSE 5% 100 ML IV ONE (02:55)
[2022-11-28] MEDS ORDERED: AMIODARONE 450 MG/9 ML VIAL IV ONE (02:57)
[2022-11-28] MEDS ORDERED: AMIODARONE 150 MG/3 ML VIAL IV ONE (02:58)
--- NOTE | 2022-11-28 03:15 | NUR ---
pt. A. fib 130 to 160 bpm; Dr. Poole made aware and orderd Amiodarone Drip; noted and carried out. Bolus adm IVP as but Drip not started as pt. in PEA arrest at 0330 and being coded. Will cont. to monitor.
--- NOTE | 2022-11-28 04:00 | NUR ---
Pt. in PEA arrest @ 0330; Code Blue called and pt. was given Epi, 1 round of CPR and NaHCo3. BS=75 mg/dl; D50 1 amp given during code. NaHCO3 adm IVP x 1 as ordered by ER MD. Levophed, Vasopressin and Neosynephrine Drips infuring. Family @ bedside given comfort. All questions answered. Will cont. to monitor.
[2022-11-28 04:03] LABS: EOSINOPHILS # (AUTO) 0.1 K/uL (0-0.4); EOSINOPHILS % (AUTO) 0.5 % (0.0-4.0); HEMATOCRIT 20.1 % (36-48); HEMOGLOBIN 6.3 g/dL (12.0-16.0); LYMPHOCYTES # (AUTO) 0.5 K/uL (2.5-16.5); LYMPHOCYTES % (AUTO) 4.8 % (20.5-51.1); MEAN CORPUSCULAR HEMOGLOBIN 29 pg (27-31); MEAN CORPUSCULAR HGB CONC 32 g/dL (33-37); MONOCYTES # (AUTO) 9.2 K/uL (0.8-1.0); NEUTROPHILS # (AUTO) 0.6 K/uL (1.8-7.7); NEUTROPHILS % (AUTO) 5.7 % (42.2-75.2); PLATELET COUNT (AUTO) 7 K/uL (140-450); RED BLOOD CELL COUNT(AUTO) 2.18 MIL/uL (4.20-5.40); RED CELL DISTRIBUTION WIDTH 21.4 % (11.6-13.7); WHITE BLOOD COUNT (AUTO) 10.3 K/uL (4.8-10.8)
[2022-11-28] MEDS ORDERED: SODIUM BICARBONATE 8.4% PFS 50 MEQ/50 ML SYR IVP ONE (04:15)
[2022-11-28 04:19] LABS: ALBUMIN 2.4 g/dL (3.4-5.0); ANION GAP 34.8 (8-16); CARBON DIOXIDE 11.6 mmol/L (21-32); CREATININE 3.6 mg/dL (0.6-1.3); MAGNESIUM 2.6 mg/dL (1.8-2.4); POTASSIUM 4.4 mmol/L (3.5-5.1)
[2022-11-28] MEDS: PHENYLEPHRINE 40 MG in NACL 0.9% 250 ML IV PRN ×2 (04:41→13:19)
--- NOTE | 2022-11-28 04:50 | NUR ---
Dr. Poole made aware of Hgb=6.2 and Plt.=7 with orders for transfusion of PRBC 1 unit and Platelet 1 unit noted. Will cont. to monitor.
[2022-11-28] MEDS: FUROSEMIDE 40 MG/4 ML VIAL IVP SCH ×2 (05:00→13:12)
--- NOTE | 2022-11-28 06:50 | NUR ---
RECEIVED PT ON [place]ES[place]E. PRVC 450, F24, +14, 100%. POST CODE BLUE VENT SETTING. PT CURRENTLY BEING CLEANED. WHEELS ARE LOCKED, PLUGGED INTO RED OUTLET, AMBUBAG AT BEDSIDE, ALARMS ARE SET AND AUDIBLE. BREATH SOUNDS ARE CLEAR/ DIMINISHED. SUCTION LITTLE TO NO SECRETIONS. WILL CONTINUE TO MONITOR PATIENT.
--- NOTE | 2022-11-28 07:15 | NUR ---
RECEIVED PT AT THIS TIME SOILED IN FECES, ASKED NIGHT NURSE TO HELP CLEAN PT , STATED SHE DIDNT HAVE ANY HELP LAST NIGHT, VS 117/73, HR 101, O2SAT @ 73% OBTUNDED WITH VENT STTINGS, AC, PRVC RATE 24 TV 450, FIO2 100% PEEP 14, PERICARE PROVIDED, RT AT BEDSIDE
--- NOTE | 2022-11-28 07:30 | NUR ---
Pt. very unstable and was concerned of pt. coding during morning care. Assisted by day RNRobert to clean pt. prior to endorsing pt. Report given with all questions answered. Care endorsed after cleaning patient.
--- NOTE | 2022-11-28 08:15 | NUR ---
1st unit of blood started at this time, dr Mir at bedside at this time
[2022-11-28] MEDS: LACTULOSE 20 GM/30 ML UDC PO SCH ×2 (09:00→13:00)
--- NOTE | 2022-11-28 09:29 | NUR ---
ABG ATTEMPTED ON PT FEMORALLY PER DR WHARTON, WAS NOT ABLE TO OBTAIN. WILL CONTINUE TO MONITOR .
--- NOTE | 2022-11-28 09:44 | NUR ---
RT UNABLE TO DRAW ABGS AT THIS TIME
[2022-11-28] MEDS: MEROPENEM 1,000 MG in NACL 0.9% 50 ML IV SCH (10:10)
[2022-11-28] MEDS: PANTOPRAZOLE 40 MG INJ VIAL IVP SCH (10:10)
[2022-11-28] MEDS: INSULIN LANTUS 100 UNITS/ML 10 ML VIAL SUBQ SCH (10:14)
--- NOTE | 2022-11-28 11:00 | NUR ---
dr hauser here stated not to give platelets
--- NOTE | 2022-11-28 11:00 | NUR ---
DOCTOR WHARTON SAID NO VENT CHANGES AT THIS TIME. WILL CONTINUE TO MONITOR.
[2022-11-28] MEDS ORDERED: VANCOMYCIN 1,000 MG in NACL 0.9% 250 ML IV SCH (12:00)
--- NOTE | 2022-11-28 12:00 | NUR ---
charge nurse Yi notified son regarding declining condition
--- NOTE | 2022-11-28 12:16 | NUR ---
DAVID( DAUGHTER)AT BEDSIDE AT THIS TIME
--- NOTE | 2022-11-28 12:20 | NUR ---
BLOOD COMPLETED AT THIS TIME
--- NOTE | 2022-11-28 12:37 | NUR ---
daughter still at bedside at this time
--- NOTE | 2022-11-28 12:55 | NUR ---
nichol Pyle) at bedside with DAVID at this time
--- NOTE | 2022-11-28 13:01 | NUR ---
WILLIEE SON HERE WANTS TO TRANSFER TO [facility], INFORMED FAMILY OF HER STATUS WITH LOW B/P, HE STATED THERES STILL HOPE.
[2022-11-28] MEDS: FOAM DRESSING TP SCH (13:25)
[2022-11-28] MEDS: NON ADHERENT DRESSING TP SCH (13:26)
--- NOTE | 2022-11-28 15:31 | NUR ---
pt asytole, code blue started, ERMD DR. SALMON at bedside, RT, CHARGE NURSE, HOUSESUPERVISOR, EMT, PT FAMILY STATED NO COMPRESSION, 2 ROUNDS OF EPI GIVEN, PT PRONOUNCED BY DR SALMON@ [phone].
--- NOTE | 2022-11-28 15:54 | NUR ---
LAURA TELLEZ CALLED 1531. AMBUBAG AT 100%,2 ROUNDS OF EPI BEFORE CALLED. ER DOCTOR CALLED TIME OF AT 1539.
--- NOTE | 2022-11-28 15:59 | NUR ---
Commercial Loan Administrator LIBRARY CUSTOMER SERVICE CLERK called icu to see if family wanted a real estate transaction coordinator to come and say prayers. Rn informed LIBRARY CUSTOMER SERVICE CLERK pt. coded and at 15:39. LIBRARY CUSTOMER SERVICE CLERK met with stephanie rogers dtr in [facility] who stated yes she would like a light out examiner, family member Emma Sanders provided radar systems engineer w/ her contact info, radar systems engineer called [facility] in [place] [phone], but was told only real estate transaction coordinator available had a full schedule and could not come out. radar systems engineer called [facility] in [place], , no answer. LIBRARY CUSTOMER SERVICE CLERK called [facility] [phone], no answer. Addendum: 11/28/22 at 1625 by Kathryn Rainey Commercial Loan Administrator LIBRARY CUSTOMER SERVICE CLERK provided family with bereavement, grief counseling, mortuary and cremation resources.
--- NOTE | 2022-11-28 16:19 | NUR ---
notified [facility] time of with auth #[id number] ([email or web address]) and awaitng for corner's return phone call per (Niurka)
--- NOTE | 2022-11-28 17:38 | NUR ---
Jennifer from [facility] called to state that [facility] would not take patients organs.
--- NOTE | 2022-11-28 19:02 | NUR ---
hollyar to [place](SUE) CHARGE
--- NOTE | 2022-11-28 19:18 | NUR ---
PHONE CALL FROM CORONERS OFFICE, SPOKE WITH PETAR, QUESTIONS ANSWERED.PER PETAR, NOT A CORONERS CASE, BODY CAN BE RELEASED TO MORTUARY.NO CASE NUMBER AND JUST TO PUT HER NAME.
--- NOTE | 2022-11-29 00:02 | NUR ---
BODY PICKED UP BY SADAF REDDY, FAMILY(DARLIN) AT BEDSIDE, WITNESSED BY SUE CARRERA
== END 2022-11-29 00:02 | DRG 720 ==
LOC: MED 13:07 → MMU 18:45 → MTU 11-17 05:12 → MIC 11-19 14:30
PROVIDERS: ADMIT Internal Medicine; ATTEND Internal Medicine
PROC: 30233N1 Transfusion of Nonautologous Red Blood Cells into Peripheral Vein, Percutaneous Approach (ICD-10-PCS; 2022-11-19)
PROC: 06L38CZ Occlusion of Esophageal Vein with Extraluminal Device, Via Natural or Artificial Opening Endoscopic (ICD-10-PCS; 2022-11-20)
PROC: 0BH17EZ Insertion of Endotracheal Airway into Trachea, Via Natural or Artificial Opening (ICD-10-PCS; 2022-11-23)
PROC: 5A1955Z Respiratory Ventilation, Greater than 96 Consecutive Hours (ICD-10-PCS; 2022-11-23)
PROC: 30233R1 Transfusion of Nonautologous Platelets into Peripheral Vein, Percutaneous Approach (ICD-10-PCS; 2022-11-24)
PROC: 5A12012 Performance of Cardiac Output, Single, Manual (ICD-10-PCS; principal; 2022-11-28)
DX: A41.51 Sepsis due to Escherichia coli [E. coli] (principal); N17.0 Acute kidney failure with tubular necrosis; J96.01 Acute respiratory failure with hypoxia; R65.21 Severe sepsis with septic shock; E43 Unspecified severe protein-calorie malnutrition; I85.11 Secondary esophageal varices with bleeding; D69.6 Thrombocytopenia, unspecified; E11.52 Type 2 diabetes mellitus with diabetic peripheral angiopathy with gangrene; D62 Acute posthemorrhagic anemia; K70.30 Alcoholic cirrhosis of liver without ascites; K64.9 Unspecified hemorrhoids; S42.292A Other displaced fracture of upper end of left humerus, initial encounter for closed fracture; E11.649 Type 2 diabetes mellitus with hypoglycemia without coma; K76.82 Hepatic encephalopathy; K76.6 Portal hypertension; I46.9 Cardiac arrest, cause unspecified; F10.10 Alcohol abuse, uncomplicated; Y90.9 Presence of alcohol in blood, level not specified; E03.9 Hypothyroidism, unspecified; I12.9 Hypertensive chronic kidney disease with stage 1 through stage 4 chronic kidney disease, or unspecified chronic kidney disease; E11.22 Type 2 diabetes mellitus with diabetic chronic kidney disease; N18.9 Chronic kidney disease, unspecified; K29.80 Duodenitis without bleeding; K21.9 Gastro-esophageal reflux disease without esophagitis; I77.1 Stricture of artery; K62.89 Other specified diseases of anus and rectum; X58.XXXA Exposure to other specified factors, initial encounter; Y93.89 Activity, other specified; Y92.89 Other specified places as the place of occurrence of the external cause; Y99.8 Other external cause status; Z90.49 Acquired absence of other specified parts of digestive tract; Z68.39 Body mass index [BMI] 39.0-39.9, adult
CPT/HCPCS: 31500; 36415; 36430; 36600; 70450; 71045; 73030; 73080; 73200; 80048; 80053; 80202; 81001; 81003; 82140; 82803; 82948; 83605; 83615; 83690; 83735; 84100; 84478; 85025; 85384; 85610; 86886; 86900; 86901; 86920; 87040; 87070; 87081; 87086; 87205; 89220; 92950; 93005; 93930; 94002; 94003; 96374; 97112; 97163-GP; 99285; A9153; C9113; J0282; J0610; J0696; J1815; J1885; J1940; J2185; J2250; J2270; J2354; J2370; J2405; J3010; J3370; J3430; J3475; J3480; J3490; J7030; J7060; J8597; P9016; P9035; P9046; Q0092; Q9967